=== PATIENT | female | born 1940 | race Caucasian/White ===

== ENCOUNTER → 2016-09-23 | Outpatient (CLI) | payer OTHER, MEDICARE ==
[~2016-09-23] MED LIST: AMLO-110 PO; DYZ PO; ENAL10TA88; ENAL10TA88 PO; LOVA40TA4 PO
[2016-09-23 12:36] LABS: ALT/SGPT 19 U/L (12-78); AST/SGOT 21 U/L (15-37); BLOOD UREA NITROGEN 23 mg/dl (7-18); BUN/CREATININE RATIO 22.8 (10-20); CALCIUM 9.2 mg/dl (8.5-10.1); CARBON DIOXIDE 29 mmol/L (21-32); CHLORIDE 104 mmol/L (98-107); GLUCOSE 89 mg/dl (70-99); POTASSIUM 4.3 mmol/L (3.5-5.1); SODIUM 139 mmol/L (136-145)
[2016-09-23 12:48] LABS: ALKALINE PHOSPHATASE 97 U/L (45-117)
== END | disposition home or self-care (01) ==
LOC: C.LAB1850 11:08
PROVIDERS: ATTEND Internal Medicine
DX: E78.5 Hyperlipidemia, unspecified (principal)

== ENCOUNTER → 2017-03-17 | Outpatient (CLI) | payer OTHER, MEDICARE ==
[2017-03-17 10:50] LABS: BASO % 0.2 %; BASO ABS # 0.02 K/uL (0-0.2); EOS % 1.3 %; EOS ABS # 0.12 K/uL (0-0.5); HEMOGLOBIN 13.2 g/dL (12.0-16.0); IG# 0.02 K/uL (0.00-0.02); LYMPH ABS # 1.59 K/uL (1.2-3.4); MEAN CELL VOLUME 98.5 fL (80-100); MEAN CORPUSCULAR HEMOGLOBIN 32.5 pg (25-34); MEAN PLATELET VOLUME 11.6 fL (7.4-10.4); MONO % 4.5 %; MONO ABS # 0.42 K/uL (0.11-0.59); NEUT % 76.8 %; NEUT ABS # 7.18 K/uL (1.4-6.5); PLATELET COUNT 185 K/uL (130-400); RED CELL DISTRIBUTION WIDTH CV 12.8 % (11.5-14.5); RED CELL DISTRIBUTION WIDTH SD 46.4 fL (36.4-46.3); WHITE BLOOD COUNT 9.35 K/uL (4.8-10.8)
[2017-03-17 11:15] LABS: ALBUMIN 3.3 gm/dl (3.4-5.0); ALT/SGPT 15 U/L (12-78); AST/SGOT 15 U/L (15-37); BLOOD UREA NITROGEN 28 mg/dl (7-18); CARBON DIOXIDE 26 mmol/L (21-32); CREATININE 1.03 mg/dl (0.60-1.20); GLUCOSE 90 mg/dl (70-99); POTASSIUM 4.3 mmol/L (3.5-5.1); SODIUM 137 mmol/L (136-145)
[2017-03-17 11:17] LABS: ALKALINE PHOSPHATASE 95 U/L (45-117); CHOLESTEROL 157 mg/dl (0-200); LDL CHOLESTEROL CALCULATED 54 mg/dl; TOTAL PROTEIN 7.4 gm/dl (6.4-8.2)
== END | disposition home or self-care (01) ==
LOC: C.LAB1850 09:59
PROVIDERS: ATTEND Internal Medicine
DX: E78.5 Hyperlipidemia, unspecified (principal); I10 Essential (primary) hypertension

== ENCOUNTER 2019-08-18 07:51 | Inpatient (IN) ==
--- NOTE | 2019-08-10 16:11 | PAT Medication Instructions ---
Medication Instructions Date of Service August 10, 2019 Home Medications Medication Instructions Recorded lovastatin 20 mg tablet 20 mg PO QPM #90 tab 04/29/19 Wheeled Walker #1 ea 08/04/19 lovastatin 20 mg tablet 20 mg PO QPM enalapril maleate 30 mg PO BID meloxicam 7.5 mg PO QAM triamterene-hydrochlorothiazid 1 tab PO QAM ASK your surgeon for instructions meloxicam 7.5 mg PO QAM DO NOT take the morning of surgery enalapril maleate 30 mg PO BID triamterene-hydrochlorothiazid 1 tab PO QAM Take evening before surgery lovastatin 20 mg tablet 20 mg PO QPM enalapril maleate 30 mg PO BID NOTHING TO EAT OR DRINK ATER MIDNIGHT Other Notes If you have any questions please call us at [phone] or [phone] or [phone] or [phone]
--- NOTE | 2019-08-11 15:30 | Anesthesiology Consultation ---
Date of Service August 11, 2019 Assessment & Plan (1) Encounter for pre-operative examination: COVID Status: As of 08/09 nurse assessment, patient denies travel to endemic area, known exposure/sick contacts, symptoms, or testing for coronavirus. She will be tested for covid on 08/11 at surgeon's office. Chart Review Chart Review: Acceptable Risk for Surgery (pending note to PCP re: ROZ, confirmed EKG) and Patient NOT seen in Pre Admission Testing Teaching & Discussion Instructed NPO after midnight before surgery, except medications with 15 cc of water. Medication instructions provided according to the PAT guidelines. History Surgery Operation Date: 08/18/19 12:45 Proposed Procedures p Right Total Knee Replacement - Monroe Hernandez MD Height/Weight Height: 5 ft 10 in Weight: 97 kg Allergies Allergy/AdvReac Type Severity Reaction Status Date / Time No Known Allergies Allergy Mild Verified 08/09/19 15:03 Medications Home Medications Medication Instructions Recorded Confirmed Last Taken lovastatin 20 mg tablet 20 mg PO QPM #90 tab 04/29/19 08/09/19 Unknown Wheeled Walker #1 ea 08/04/19 08/09/19 Unknown enalapril maleate 30 mg PO BID 08/09/19 08/09/19 Unknown meloxicam 7.5 mg PO QAM 08/09/19 08/09/19 Unknown triamterene-hydrochlorothiazid 1 tab PO QAM 08/09/19 08/09/19 Unknown Past Medical History Medical History Acquired lymphedema RLE, wears compression stocking 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 LAST SURGERY 2010> FOLLOWS DR. OWEN CHAVEZ IN [place] Chronic low back pain (Acute) Cold intolerance (Acute) Diverticulosis of colon (Acute) Dyslipidemia (Acute) Generalized osteoarthritis of multiple sites (Acute) History of nicotine dependence (Resolved) Hypertension (Acute) Menopause (Acute) Osteoarthritis Stasis edema of right lower extremity (Acute) CHRONIC Exercise / Class Metabolic Activity III < 4 Walking/Shop/Light housework (Gets worn out quickly now 2/2 knee pain, using cane for ambulation, so some SOB with exertion, no chest pain. Does water aeorbics for exercise.) Past Family History Family History Father Hypertension Diabetes Hyperlipidemia Mother Hypertension Past Surgical History Surgical History H/O parotidectomy History of colonoscopy Hx of bilateral cataract extraction Hx of surgical procedure X4 TO [place] [facility] FOR CANCER S/P cholecystectomy Past Anesthesia History No Hx of Anesthesia Complications and No Family Hx of Anesthesia Complications History of PONV No Hx of PONV and No Hx of Motion Sickness Social History Smoking Status: Former smoker Do You Dip or Chew Tobacco: No Smoking End Date: 2016 Hx Alcohol Use: Yes Alcohol type: hard liquor alcohol intake frequency: a few times a month Hx Substance Use: No substance use type: does not use Review of Systems Pt denies any recent chest pain, shortness of breath, palpitations, cough, fever or URI. Physical Exam Vital Signs BP: 141/73 P: 87bpm SPO2: 97% RA T: 98.9 F R: 16 ENMT Mouth: + dentures and + edentulous (except posts in front lower to hold denture) Thyromental Distance: > or= 3.5 Finger Breadths (3.5) Neck normal visual inspection; neck extension not limited Respiratory normal respiratory effort Auscultation: lungs clear to auscultation bilaterally Cardiovascular Rate/Rhythm: regular rate; + abnormal rhythm (irreg irreg) Heart Sounds: no murmur Extremities: no edema (wearing RLE compression sock) Occasional PVCs and PACs on EKG. Testing Laboratory Results 08/11/19 15:54 08/11/19 15:54 PT 10.6 Seconds (9.0-12.0) 08/11/19 15:54 INR 1.0 (0.9-1.1) 08/11/19 15:54 APTT 24.2 Seconds (21.0-31.0) 08/11/19 15:54 Blood Type O Positive 08/11/19 15:54 Antibody Screen NEGATIVE 08/11/19 15:54 Electrocardiogram Date: 08/11/19 Sinus rhythm at 95 bpm with first-degree AV block with occasional PVCs and PACs. RSR or QR pattern in V1 suggests right ventricular conduction delay. Nonspecific ST abnormality. Prolonged QT. Compared with EKG of 05/01/2012, ABCs and PACs are now present, MA interval has increased, RSR pattern in V1 is now present. Chest X-Ray Date: 08/11/19 Findings: + NAD
[2019-08-11 16:20] LABS: Basophils # (auto) 0.03 K/uL (0-0.2); Basophils % (auto) 0.3 %; Eosinophils # (auto) 0.13 K/uL (0-0.5); Eosinophils % (auto) 1.3 %; Hematocrit (blood only) 39.1 % (37-47); Hemoglobin 12.7 g/dL (12.0-16.0); Immature Granulocytes # (auto) 0.03 K/uL (0.00-0.02); Immature Granulocytes % (auto) 0.3 %; Lymphocytes # (auto) 1.83 K/uL (1.2-3.4); Lymphocytes % (auto) 18.8 %; Mean Corpuscular Hemoglobin 31.8 pg (25-34); Mean Corpuscular Hgb Conc 32.5 g/dL (32-36); Mean Platelet Volume 11.6 fL (7.4-10.4); Monocytes # (auto) 0.66 K/uL (0.11-0.59); Monocytes % (auto) 6.8 %; Neutrophils # (auto) 7.06 K/uL (1.4-6.5); Neutrophils % (auto) 72.5 %; Platelet Count 200 K/uL (130-400); RDW Coefficient of Variation 13.2 % (11.5-14.5); RDW Standard Deviation 47.4 fL (36.4-46.3); Red Blood Count 3.99 M/uL (4.2-5.4); White Blood Count 9.74 K/uL (4.8-10.8)
[2019-08-11 16:27] LABS: BUN Creatinine Ratio 24.6 (10-20); Blood Urea Nitrogen 40 mg/dl (7-18); C Reactive Protein < 0.29 mg/dl (0-0.29); Calcium 9.1 mg/dl (8.5-10.1); Carbon Dioxide 26 mmol/L (21-32); Chloride 108 mmol/L (98-107); Creatinine Clr Calc Pharmacy 35.7 ml/min; Est GFR (African American) 34.9; Est GFR (Non-African American) 30.1; Glucose 93 mg/dl (70-99); Potassium 4.6 mmol/L (3.5-5.1); Sodium 138 mmol/L (136-145)
[2019-08-11 16:34] LABS: Partial Thromboplastin Ratio 0.9; Partial Thromboplastin Time 24.2 Seconds (21.0-31.0); Prothrombin Time 10.6 Seconds (9.0-12.0)
--- NOTE | 2019-08-11 16:40 | XRay Report ---
XR chest Pre-admission PA/Lat CLINICAL HISTORY: PAT preoperative COMPARISON STUDY: 05/01/2012 FINDINGS: Tortuosity thoracic aorta. Diaphragms are smooth. Slight basilar interstitial prominence fe lt to be secondary to overlapping soft tissue. IMPRESSION: No acute process. ACT 112: Negative or not required by law. The above report was generated using voice recognition software. It may contain grammatical, syntax or spelling errors. Electronically signed by: Fili Patton M.D. 08/11/2019 4:39 PM
--- NOTE | 2019-08-12 14:49 | Electrocardiogram Report ---
Test Reason : Blood Pressure : / mmHG Vent. Rate : 095 BPM Atrial Rate : 095 BPM P-R Int : 234 ms QRS Dur : 090 ms QT Int : 394 ms P-R-T Axes : 075 071 051 degrees QTc Int : 495 ms Sinus rhythm with 1st degree A-V block with occasional Premature ventricular complexes and Premature atrial complexes with runs of PAT RSR' or QR pattern in V1 suggests right ventricular conduction delay Nonspecific ST abnormality Prolonged QT Abnormal ECG When compared with ECG of 01-MAY-2012 12:25, Premature ventricular complexes are now Present Premature atrial complexes are now Present ND interval has increased RSR' pattern in V1 is now Present Confirmed by Liam Romo ([id number]) on 08/12/2019 2:48:42 PM Referred By: Monroe Hernandez Confirmed By:Liam Romo
[~2019-08-18 07:51] MED LIST changes: +ACETAMINOPHEN 500 MG TAB PO SCH; -AMLO-110 PO; +BUPIVACAINE 0.5 % 5 MG/1 ML PF 10ML VIAL ONE; +BUPIVACAINE LIPOSOME/PF 266 MG, BUPIVACAINE/EPINEPHRINE 50 ML, SODIUM CHLORIDE 0.9% 30 ... INFIL SCH; +CEFAZOLIN 2000MG 2,000 MG/15 ML SYR IV SCH; -DYZ PO; -ENAL10TA88; -ENAL10TA88 PO; +FAMOTIDINE 20 MG TAB PO SCH; +GABAPENTIN 300 MG CAP PO SCH; -LOVA40TA4 PO; +METOCLOPRAMIDE HCL 10 MG TABLET PO SCH; +MIDAZOLAM HCL 1 MG/ML 2ML VIAL ONE; +TRANEXAMIC ACID / 0.7% NACL 1,000 MG/100 ML BAG IV SCH; +fentaNYL citrate 100 MCG/2 ML VIAL ONE
--- NOTE | 2019-08-18 08:57 | History & Physical Bridge Note ---
Date of Service August 18, 2019 History & Physical Bridge Note I have examined the patient, reviewed the History & Physical and in the interval since the performance of the History & Physical I have noted the following changes of clinical significance: no changes noted
[2019-08-18] MEDS ORDERED: FAMOTIDINE 20 MG TAB ONE (09:08)
[2019-08-18] MEDS ORDERED: GABAPENTIN 300 MG CAP ONE (09:08)
[2019-08-18] MEDS ORDERED: METOCLOPRAMIDE HCL 10 MG TABLET ONE (09:08)
[2019-08-18] MEDS ORDERED: ACETAMINOPHEN 500 MG TAB ONE (09:08)
[2019-08-18] MEDS ORDERED: TRANEXAMIC ACID / 0.7% NACL 1000MG/100ML BAG IV ONE (09:10)
[2019-08-18] MEDS ORDERED: CEFAZOLIN 2,000 MG/15 ML IV PUSH IV ONE (09:11)
[2019-08-18] MEDS ORDERED: LACTATED RINGER'S 1,000 ML IV SCH (09:15)
[2019-08-18] MEDS ORDERED: BUPIVACAINE LIPOSOME 1.3% 266 MG/20 ML VIAL ONE (10:12)
[2019-08-18] MEDS ORDERED: BUPIVACAINE/EPINEPHRINE 0.25% 1:200,000 30 ML VIAL ONE (10:12)
[2019-08-18] MEDS ORDERED: BACITRACIN INJ 50,000 UNIT VIAL ONE (10:12)
[2019-08-18] MEDS ORDERED: SODIUM CHLORIDE 0.9% PF 50 ML VIAL ONE (10:12)
[2019-08-18 11:01] LABS: BUN Creatinine Ratio 20.3 (10-20); Calcium 9.4 mg/dl (8.5-10.1); Creatinine Clr Calc Pharmacy 31.5 ml/min; Est GFR (African American) 30.5; Est GFR (Non-African American) 26.3; Potassium 3.9 mmol/L (3.5-5.1)
[2019-08-18] MEDS ORDERED: DEXAMETHASONE SOD INJ 4 MG/ML VIAL ONE (11:12)
[2019-08-18] MEDS ORDERED: PROPOFOL IV EMULSION 10 MG/ML 20 ML VIAL IV ONE (11:12)
[2019-08-18] MEDS ORDERED: ONDANSETRON INJ 2 MG/ML 2 ML VIAL ONE (11:12)
[2019-08-18] MEDS ORDERED: fentaNYL citrate 100 MCG/2 ML VIAL ONE ×2 (11:28→13:05)
[2019-08-18] MEDS ORDERED: VANCOMYCIN HCL 1000MG/20ML VIAL ONE (11:29)
[2019-08-18] MEDS ORDERED: HYDROmorphone INJ 2 MG/ML SYR/VIAL ONE (11:37)
--- NOTE | 2019-08-18 12:51 | Post Operative Brief Note ---
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 Post-Op Diagnosis: RIGHT KNEE DEGENERATIVE JOINT DISEASE W/KNEE PAIN I identified the patient and participated in the time-out.: Yes Procedure Operation Date: 08/18/19 10:00 Actual Procedures p Right Total Knee Replacement(Right) - Monroe Hernandez MD Surgeon Monroe Hernandez MD Sausage Tier Crystal, [facility] Estimated Blood Loss 50 Findings Consistent with Post-Op Diagnosis Fluids 800 cc Specimens Specimen Description: Permanent Specimen: A) Right Knee Bone and Tissue Drains Guajardo Catheter Anesthesia Type Spinal MAC Complications none Disposition Accompanied Patient To Recovery: No Disposition: Recovery Room
[2019-08-18] MEDS ORDERED: ATROPINE SULFATE 0.1 MG/ML 10ML SYR IV PRN (13:02)
[2019-08-18] MEDS ORDERED: ONDANSETRON INJ 2 MG/ML 2 ML VIAL IV PRN ×2 (13:02→14:34)
[2019-08-18] MEDS ORDERED: ePHEDrine sulfate 50 MG/ML AMP IV PRN (13:02)
[2019-08-18] MEDS: fentaNYL citrate 100 MCG/2 ML VIAL IV PRN ×4 (13:07→13:25)
--- NOTE | 2019-08-18 13:16 | XRay Report ---
XR knee RT 1 or 2V routine HISTORY: 79 years-old Female Surgical Post Op right knee total joint arthroplasty COMPARISON: Right knee radiographs 11/24/2018 TECHNIQUE: 2 views of the right knee FINDINGS: Total joint arthroplasty and patella resurfacing. Anterior midline skin ree are noted along with expected postsurgical soft tissue swelling and deep tissue air with surgical drainage catheter. Arter ial calcifications. IMPRESSION: Right knee total joint arthroplasty with expected postoperative findings. ACT 112: Negative or not required by law. The above report was generated using voice recognition software. It may contain grammatical, syntax o r spelling errors. Electronically signed by: Jong Forrest M.D. 08/18/2019 1:15 PM
[2019-08-18] MEDS ORDERED: HYDROmorphone INJ 1 MG/ML SYRINGE ONE (13:31)
[2019-08-18] MEDS: HYDROmorphone INJ 1 MG/ML SYRINGE IV PRN ×4 (13:34→13:50)
--- NOTE | 2019-08-18 13:51 | Operative Report ---
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 She had she had extensive grade 4 [id number] disease of the lateral and patellofemoral compartment and fairly extensive disease in the medial compartment as well. She had a valgus deformity to her knee with a flexion contracture of about 10 to 15 degrees. Moderate-sized joint effusion. Fluids 800 cc. Specimens Right knee sent for pathology. Drains None. Anesthesia Type General Regional Complications none Disposition Disposition: Recovery Room Indications Patient is a 79-year-old female is had a fairly long history of right knee pain discomfort is gotten suddenly worse over the past year. He has been through extensive conservative treatment and despite this her disease and symptoms progressed. X-rays show progressive knee arthritis. She elected proceed with surgical treatment. Patient does have a history of lymphedema in this leg and she knew that as a result she was at increased risk for complications, most specifically infection and thrombosis. Description of Procedure Operative implants consisted of: 1. Biomet Vanguard size 72.5 right posterior by femoral component. 2. Biomet size 71 tibial tray. 3. 10 mm posterior box polyethylene insert. 4. 31 x 8 all poly-patella. Patient was taken to the operating room identified and placed on the operating table supine position. All contact areas were appropriately padded. IV antibiotics were tried by anesthesia team. And abductor canal block had provided in the holding area. They attempted a spinal anesthetic but were unsuccessful. Therefore a general anesthetic was implemented by the anesthesia team. A Guajardo catheter was placed in sterile fashion. Right thigh tach was then placed in the right lower extremity was then prepped and draped in usual sterile fashion. The right leg was elevated exsanguinated with use of an Esmarch interspace at 300 mmHg. An anterior approach to the right knee was then performed through a longitudinal incision centered over the patella. Sharp dissection Through subcutaneous tissue down to the extensor mechanism. A medial parapatellar arthrotomy incision was made. Some subperiosteal dissection was carried out medially. The fat pad was resected from each patella tendon. Lateral patellofemoral ligament was released. The patella was subluxated laterally. The knee was flexed. The osteophytes were taken off distal femur. The ACL PCL were then released from distal femur and the tibia subluxated anteriorly. The external tibial alignment jig was placed on the anterior surface of the tibia and adjusted 12 mm medially. Proximal tibial cut was made to move about 4 to 5 mm from the medial side. The tibia was sized to a size 71. Attention drawn the femur. The distal femur was entered with a sharp drill bit intramedullary canal was suction. A right 5 degree valgus cutting guide was placed. Distal femoral cutting block was pinned in place but distal femoral cut was made to take an additional 3 mm of bone off distal femur. The femur was then sized to a size 72.5. The AP cutting block was pinned parallel to the epicondylar axis which was 5 degrees of external rotation. The anterior cut, anterior chamfer, posterior cut, posterior chamfer cuts were made. Box cutting guide was placed in just slight lateral box cut was made. The knee was brought out into full extension and I did release some the IT band and posterior lateral capsule to equalize the extension space. Great care was taken throughout the procedure protect the peroneal nerve at all times. I then flexed the knee and release the lobe of the popliteus as well to equalize the flexion space. The remnants of the medial lateral menisci were excised. The osteophytes were taken off the posterior aspect of the femur. Trial femoral component was placed. The tibial tray was pinned in maximum external rotation drill and stem punch were used to create defect in proximal tip of the tibial tray. Knee was then trialed and 10 mm insert fit most appropriately. Attention drawn the patella. The patella was cleaned of all soft tissues. Patella thickness measured 20 mm in thickness was cut down to 13. It was sized to a size 31 patella. The locals were drilled for 31 patella. The lateral osteophyte was removed. Patella button was placed. Knee was taken through range of motion patella tracked nicely with no thumbs test. Attention drawn to placing the permanent components. All trial components were removed. Bone plug was placed in the distal femur allison it blood loss. A double batch Palacos G cement was mixed. I did add an additional gram of vancomycin due to her history of lymphedema and swelling in this leg and concern for infection. A Biomet size 72.5 right posterior by femoral component, size 71 tibial tray, 10 mm posterior box polyethylene insert, and a 31 x 8 all poly-patella were then cemented in place. Knees brought out into full extension until cement hardened. Final cement check was then performed. Pericapsular tissues were injected with a total of 100 cc of combination of 20 cc of Exparel, 30 cc normal saline, 50 cc of quarter percent Marcaine with epinephrine. Patient did receive 1 g of tranexamic acid per the tourniquet was then let down for final tourniquet time of 64 minutes. Hemostasis assured use electrocautery. The wounds once again irrigated. Extensor mechanism then closed with combination 1 PDS suture #1 Vicryl suture in [id number] fashion. Extensor mechanism checked about to be intact and subcutaneous tissue then closed with 2 Dexon suture in a buried knot fashion skin was closed skin ree. Leg was then cleaned dried and sterile dressed composed Xeroform, 4 x 4's, sterile cast padding, Diogenes bandage were applied. Patient then transferred to the recovery room in stable condition. Patient tolerated procedure well no complications. I attest to the content of the Intraoperative Record and any orders documented therein. Any exceptions are noted below.
--- NOTE | 2019-08-18 13:54 | Anesthesiology Progress Note ---
Date of Service August 18, 2019 Anesthesia Post Procedure Vital Signs Vital Signs: Temp Pulse Pulse Resp BP Pulse Ox 08/18/19 13:45 76 26 H 132/66 100 08/18/19 13:35 87 19 132/69 100 08/18/19 13:25 82 24 138/55 L 96 08/18/19 13:15 81 17 138/65 100 08/18/19 13:05 80 17 132/49 L 100 08/18/19 12:57 97.7 F 90 14 128/60 100 08/18/19 08:33 98.2 F 87 16 146/93 H 97 Pain Intensity Right Knee: Pain Intensity: 7 Left Knee: Pain Intensity: 7 Transfer of Care Handoff Completed per policy Notes Mental Status: alert / awake / arousable and participated in evaluation Patient Amnestic to Procedure: Yes Nausea / Vomiting: adequately controlled Pain: adequately controlled Airway Patency, RR, SpO2: stable & adequate BP & HR: stable & adequate Hydration State: stable & adequate Anesthetic Complications: no major complications apparent and Pt Satisfied with anesthetic care
[2019-08-18] MEDS ORDERED: NO NSAIDS SCH (14:34)
[2019-08-18] MEDS ORDERED: METOCLOPRAMIDE HCL INJ 5 MG/ML 2 ML VIAL IV PRN (14:34)
[2019-08-18] MEDS ORDERED: HYDROmorphone INJ 0.5 MG/0.5 ML SYR IV PRN (14:34)
[2019-08-18] MEDS ORDERED: NALOXONE HCL 0.4 MG/1 ML VIAL/CARP IV PRN (14:34)
[2019-08-18] MEDS ORDERED: ALUMINUM/MAGNESIUM SUSP 30 ML UDC PO PRN (14:34)
[2019-08-18] MEDS ORDERED: MAGNESIUM HYDROXIDE SUSP 30 ML UDC PO PRN (14:34)
[2019-08-18] MEDS ORDERED: bisacodyL 10 MG SUPP PR PRN (14:34)
[2019-08-18] MEDS: SODIUM CHLORIDE 0.9% 1000ML 1,000 ML IV SCH (14:58)
[2019-08-18] MEDS: ACETAMINOPHEN 500 MG TAB PO SCH (16:49)
[2019-08-18] MEDS: FERROUS GLUCONATE 324 MG TAB PO SCH (18:00)
[2019-08-18] MEDS: ASCORBIC ACID 500 MG TAB PO SCH (18:00)
[2019-08-18] MEDS: CEFAZOLIN 2000MG 2,000 MG/15 ML SYR IV SCH (18:05)
[2019-08-18] MEDS ORDERED: TRANEXAMIC ACID / 0.7% NACL 1,000 MG/100 ML BAG IV SCH (19:00)
[2019-08-18] MEDS: ENALAPRIL MALEATE 10 MG TAB PO SCH (21:40)
[2019-08-18] MEDS: ASPIRIN 81 MG ECTAB PO SCH (21:40)
[2019-08-18] MEDS: DOCUSATE SODIUM 100 MG CAP PO SCH (21:40)
[2019-08-18] MEDS: SENNA 8.6 MG TAB PO SCH (21:40)
[2019-08-18] MEDS: LOVASTATIN 20 MG TAB PO SCH (21:40)
[2019-08-19] MEDS: SODIUM CHLORIDE 0.9% 1000ML 1,000 ML IV SCH (00:16)
[2019-08-19] MEDS: ACETAMINOPHEN 500 MG TAB PO SCH ×4 (00:16→23:47)
[2019-08-19] MEDS: CEFAZOLIN 2000MG 2,000 MG/15 ML SYR IV SCH (03:31)
[2019-08-19 06:05] LABS: Hematocrit (blood only) 34.4 % (37-47); Mean Corpuscular Hemoglobin 31.1 pg (25-34); Mean Corpuscular Volume 97.2 fL (80-100); Mean Platelet Volume 11.2 fL (7.4-10.4); Platelet Count 151 K/uL (130-400); RDW Coefficient of Variation 12.7 % (11.5-14.5); RDW Standard Deviation 45.2 fL (36.4-46.3); Red Blood Count 3.54 M/uL (4.2-5.4); White Blood Count 9.28 K/uL (4.8-10.8)
[2019-08-19] MEDS: TRAMADOL HCL 50 MG TABLET PO PRN ×4 (06:08→22:55)
[2019-08-19 06:33] LABS: BUN Creatinine Ratio 21.3 (10-20); Calcium 8.3 mg/dl (8.5-10.1); Creatinine Clr Calc Pharmacy 44.4 ml/min; Est GFR (Non-African American) 39.7; Potassium 3.7 mmol/L (3.5-5.1)
--- NOTE | 2019-08-19 07:46 | Progress Notes ---
DATE: 08/19/2019 SUBJECTIVE: A 79-year-old white female postop day 1 from right knee replacement. She is doing pretty well. She says her quad muscle is pretty sore. No chest pain or shortness of breath. Not feeling dizzy or lightheaded. Had a pretty good night. OBJECTIVE: VITAL SIGNS: Temperature 37.1. Vital signs stable. GENERAL: Shows a pleasant elderly female. She is lying in bed, looks reasonably comfortable. She is awake, alert and oriented. LUNGS: Clear to auscultation. HEART: Has a regular rate and rhythm. ABDOMEN: Soft, nontender, nondistended. EXTREMITIES: Grossly neurovascularly intact except as follows: Examination of the right lower extremity reveals the leg to be well aligned. Dressing is clean, dry and intact. She can dorsiflex and plantarflex her foot appropriately. She is neurologically intact. LABORATORY DATA: Hemoglobin 11.0. Hematocrit 34.4. Electrolytes are stable. She has got some underlying renal dysfunction, but creatinine is actually better than it has in the past at 1.28. ASSESSMENT: A 79-year-old white female postoperative day 1 from right knee replacement, doing reasonably well. Pain is controlled. She is neurologically intact. Her laboratories are stable. PLAN: 1. DVT prophylaxis including thigh-high TEDs, SCDs, and aspirin twice a day. 2. PT/OT. Weight bear as tolerated. Right total knee protocol. 3. Pain control, doing pretty well with current pain regimen. We are going to need to hold all NSAIDs due to her renal dysfunction. 4. Disposition: She is hoping to be discharged to home with some home health and some family coming from the outside to assist her when she is medically stable.
[2019-08-19] MEDS: ENALAPRIL MALEATE 10 MG TAB PO SCH ×2 (08:07→20:53)
[2019-08-19] MEDS: DOCUSATE SODIUM 100 MG CAP PO SCH ×2 (08:08→20:51)
[2019-08-19] MEDS: MULTIVITAMIN TAB PO SCH (08:08)
[2019-08-19] MEDS: ASCORBIC ACID 500 MG TAB PO SCH ×2 (08:08→17:45)
[2019-08-19] MEDS: FERROUS GLUCONATE 324 MG TAB PO SCH ×2 (08:08→17:45)
[2019-08-19] MEDS: ASPIRIN 81 MG ECTAB PO SCH ×2 (08:08→20:52)
[2019-08-19] MEDS: TRIAMTERENE/HCTZ 37.5/25MG TAB PO SCH (08:08)
--- NOTE | 2019-08-19 08:19 | Anesthesiology Progress Note ---
Date of Service August 19, 2019 Anesthesia Post Procedure Vital Signs Vital Signs: Temp Pulse Pulse Pulse Resp BP BP 08/19/19 07:29 36.7 C 86 18 145/81 H 08/19/19 03:33 37.1 C 78 14 129/72 08/18/19 23:41 36.6 C 92 H 14 121/64 08/18/19 17:21 36.2 C L 66 18 180/83 H 08/18/19 17:12 36.2 C L 08/18/19 16:55 36.3 C L 08/18/19 16:31 34.6 C L 08/18/19 16:26 34.6 C L 71 17 147/83 H 08/18/19 16:10 34.7 C L 08/18/19 15:24 34.7 C L 76 17 144/81 H 08/18/19 14:50 36.4 C L 76 16 149/81 H 08/18/19 14:20 36.4 C L 82 16 146/86 H 08/18/19 14:05 36.3 C L 78 12 146/74 H 08/18/19 13:55 36.3 C L 81 10 L 139/61 08/18/19 13:45 76 26 H 132/66 08/18/19 13:35 87 19 132/69 08/18/19 13:25 82 24 138/55 L 08/18/19 13:15 81 17 138/65 08/18/19 13:05 80 17 132/49 L 08/18/19 12:57 36.5 C 90 14 128/60 08/18/19 08:33 36.8 C 87 16 146/93 H Pulse Ox 08/19/19 07:29 98 08/19/19 03:33 98 08/18/19 23:41 98 08/18/19 17:21 99 08/18/19 17:12 08/18/19 16:55 08/18/19 16:31 08/18/19 16:26 100 08/18/19 16:10 08/18/19 15:24 100 08/18/19 14:50 100 08/18/19 14:20 98 08/18/19 14:05 99 08/18/19 13:55 99 08/18/19 13:45 100 08/18/19 13:35 100 08/18/19 13:25 96 08/18/19 13:15 100 08/18/19 13:05 100 08/18/19 12:57 08/18/19 08:33 97 Pain Intensity Right Knee: Pain Intensity: 4 Left Knee: Pain Intensity: 2 Notes Mental Status: alert / awake / arousable and participated in evaluation Nausea / Vomiting: adequately controlled Pain: adequately controlled Airway Patency, RR, SpO2: stable & adequate BP & HR: stable & adequate Hydration State: stable & adequate Neuraxial Anesthesia: sensory block resolved Anesthetic Complications: Pt Satisfied with anesthetic care
[2019-08-19] MEDS: SENNA 8.6 MG TAB PO SCH (20:52)
[2019-08-19] MEDS: LOVASTATIN 20 MG TAB PO SCH (20:52)
[2019-08-20 06:16] LABS: Hematocrit (blood only) 34.3 % (37-47); Hemoglobin 11.2 g/dL (12.0-16.0); Mean Corpuscular Hemoglobin 31.5 pg (25-34); Mean Corpuscular Hgb Conc 32.7 g/dL (32-36); Mean Corpuscular Volume 96.6 fL (80-100); Mean Platelet Volume 11.9 fL (7.4-10.4); Platelet Count 168 K/uL (130-400); RDW Coefficient of Variation 12.7 % (11.5-14.5); RDW Standard Deviation 44.9 fL (36.4-46.3); Red Blood Count 3.55 M/uL (4.2-5.4); White Blood Count 12.36 K/uL (4.8-10.8)
[2019-08-20 06:54] LABS: BUN Creatinine Ratio 18.1 (10-20); Creatinine Clr Calc Pharmacy 44.7 ml/min; Est GFR (African American) 46.5; Est GFR (Non-African American) 40.1; Potassium 3.6 mmol/L (3.5-5.1)
[2019-08-20] MEDS: ACETAMINOPHEN 500 MG TAB PO SCH (07:36)
[2019-08-20] MEDS: TRIAMTERENE/HCTZ 37.5/25MG TAB PO SCH (08:44)
--- NOTE | 2019-08-20 08:44 | Progress Notes ---
DATE: 08/20/2019 SUBJECTIVE: A 79-year-old white female postop day 2 from right knee replacement. She is doing pretty well. Pain is a little bit better today. Therapy went okay. No chest pain or shortness of breath. Not feeling dizzy or lightheaded. OBJECTIVE: VITAL SIGNS: Temperature 36.9. Vital signs stable. GENERAL: Shows a pleasant elderly female. She is sitting up at her bedside chair, looks quite comfortable. EXTREMITIES: Examination of the right leg reveals the dressing to be clean, dry and intact. Minimal drainage. Mild swelling. She can dorsiflex and plantarflex her foot appropriately. She is neurologically intact. LABORATORY DATA: Hemoglobin 11.2. Hematocrit 34.3. Electrolytes are stable. Creatinine is actually improved from preoperatively. ASSESSMENT: A 79-year-old white female postop day 2 from right knee replacement, doing pretty well. Pain is controlled. She is neurologically intact. Labs are stable. PLAN: 1. DVT prophylaxis including thigh-high TEDs, SCDs, and aspirin twice a day. 2. PT/OT. Weight bear as tolerated. Right total knee protocol. 3. Pain control, doing well with current pain regimen. We need to hold her NSAIDs due to her renal dysfunction. 4. Disposition: Plan to discharge to home with some home health later today.
[2019-08-20] MEDS: ASCORBIC ACID 500 MG TAB PO SCH (08:45)
[2019-08-20] MEDS: MULTIVITAMIN TAB PO SCH (08:45)
[2019-08-20] MEDS: ENALAPRIL MALEATE 10 MG TAB PO SCH (08:45)
[2019-08-20] MEDS: FERROUS GLUCONATE 324 MG TAB PO SCH (08:45)
[2019-08-20] MEDS: DOCUSATE SODIUM 100 MG CAP PO SCH (08:46)
[2019-08-20] MEDS: ASPIRIN 81 MG ECTAB PO SCH (08:46)
[2019-08-20] MEDS: TRAMADOL HCL 50 MG TABLET PO PRN (08:49)
--- NOTE | 2019-08-23 16:17 | Discharge Summary ---
Date of Service August 23, 2019 Admission HPI Per Admitting Provider Documented in the H&P Admission Exam (Per Admitting) Constitutional Documented in the H&P Discharge Data Consultations 08/18/19 14:34 Consult Case Management - Discharge Planning Routine Procedures Performed Operation Date: 08/18/19 10:00 Actual Procedures p Right Total Knee Replacement(Right) - Monroe Hernandez MD Hospital Course (1) Status post total right knee replacement: 79-year-old female admitted on 08/18/2019 underwent total knee arthroplasty. She tolerated procedure well and there were no complications. She was transferred to the PACU postoperatively and later to the orthopedic floor for further care. She was given RICO stockings, SCDs, and aspirin for DVT prophylaxis. She was given Ancef for antibiotic prophylaxis. Her hemoglobin, hematocrit, and vital signs monitored during hospital stay remained stable. She did not require blood transfusions. There were no complications. On postoperative day 2 she was tolerating a regular diet, pain was controlled with oral pain medicine, she was participating in physical therapy. She is discharged home on postop day 2 and set up with home health services. She was given printed discharge instructions as well as new prescriptions for extra strength Tylenol, aspirin, iron supplement, tramadol. Continue physical thera py. She is weightbearing as tolerated. Continue RICO stockings. Follow-up approximately 2 weeks postop or sooner if any problems or concerns. Coding Level of Care Code None Diagnoses Status post total right knee replacement Z96.651
== END 2019-08-20 11:38 | disposition home health service (06) | DRG 470 ==
LOC: ASU 07:51 → 3E 07:51

== ENCOUNTER 2021-01-02 08:08 | Inpatient (IN) ==
[2021-01-02] MEDS ORDERED: SODIUM CHLORIDE 0.9% 1000ML 500 ML IV ONE ×2 (08:49→13:29)
[2021-01-02] MEDS ORDERED: SODIUM CHLORIDE 0.9% 1000ML 1,000 ML IV STA (08:49)
--- NOTE | 2021-01-02 08:49 | Emergency Department Note ---
Impression & Plan Epidural abscess ED Provider Note INFORMANT: Patient ED PROVIDER(S): Eduard Yanes MD CHIEF COMPLAINT: Back pain PLAN: Disposition: Admitted Condition: Guarded Outpatient prescription management: none Referral: None MEDICAL DECISION MAKING: Patient presented due to worsening back pain. She is not functioning well at home. An IV was established. Blood work was obtained. Patient went for CT imaging. She was also complaining of pain in her wrists bilaterally. X-ray imaging was performed and did not reveal any acute findings. Arthritic changes were noted. Due to the fall a head CT was performed and this was negative. Lumbar spine CT was performed and raise concerns for possible epidural gas. I discussed this with the radiologist. Lumbar spine MRI with and without contrast was performed. Chest x-ray was performed and was negative. The patient was given IV daptomycin and IV Zosyn. She was treated with Dilaudid for pain. She was doing very well after the hydration and pain management was administered. The patient was found to have an epidural abscess. I did place a consult with Dr. Adrián Crook of orthopedic spine. He felt that the patient is going to need operative intervention and would like her admitted to medicine. He will likely take her to the OR tomorrow. Consultation was made with the [facility] service. The patient was evaluated in the ER and admitted for further management by Dr. Nunez. Triage Nursing notes reviewed and agree them. Vital Signs: reviewed and remarkable for no significant abnormalities Differential diagnosis: Fracture, sciatica, Infection, dehydration, metabolic abnormality, hypo/hyperglycemia, electrolyte disturbance, anemia, hypoxia, cardiac sources, intracerebral event, toxicologic, neurologic, as well as other pathologies. Diagnostics interpreted by me: ECG: Twelve-lead ECG reveals sinus tachycardia at 118 bpm. PVCs present. No ST elevation or depression. Normal axis. Cardiac Monitoring: Cardiac monitoring ordered by me: The patient was placed on continuous cardiac monitoring and observed. It revealed a normal sinus rhythm at 94 beats per minute without ectopy or evidence of dysrhythmia. Imaging studies: X-rays, CT scans and MRI as noted above. HPI: The patient is a 80 year old female who presents to the Emergency Room with complaints of worsening low back pain. This started 10-14 days ago and is worsening. The patient also notes the following associated symptoms, weakness, poor appetite, difficulty caring for herself. The patient has been prescribed tramadol by her orthopedist, Dr. Hernandez. Patient was then seen in ER and was prescribed prednisone and percocet for relieving factors. Current pain is rated as 8/10. Pt denies LOC, headache, fevers, chills, diaphoresis, visual changes, neck pain, chest pain, breathing difficulties, nausea, vomiting, abdominal pain, melena, hematochezia, urinary symptoms, numbness, lymphadenopathy, rash, or other complaints. ROS: See above HPI for pertinent positives & negatives. A total of 10 systems reviewed and were otherwise negative. PAST MEDICAL HISTORY:See Below , htn PAST SURGICAL HISTORY:See Below, knee replacement FAMILY HISTORY:See Below SOCIAL HISTORY:See Below, lives alone HOME MEDICATIONS:See Below ALLERGIES:See Below VITALS:See Below PHYSICAL EXAMINATION: GENERAL: Awake, alert, uncomfortable-appearing, in no distress HENT: Normocephalic, atraumatic. Oropharynx with dry mucous membranes. EYES: Normal conjunctiva. Sclera non-icteric. NECK: Inspection normal. Non-tender. Supple. No nuchal rigidity. FROM. No masses. RESPIRATORY: Clear to auscultation. No wheezes. No rales. Normal respiratory effort. CARDIAC: Normal rate. Normal rhythm. No murmurs. No rubs. Extremities warm and well perfused. Pulses equal. No JVD. GI: Soft, non-distended. No tenderness to palpation. No rebound or guarding. No masses. RECTAL: Deferred. MUSCULOSKELETAL: Contusion to the right forearm. Chest examination reveals no tenderness. The back is symmetrical on inspection without obvious abnormality. Lumbar TTP. There is no CVA tenderness to palpation. No joint edema. LOWER EXTREMITIES: Calves are non-tender. Right 2+ edema. No discoloration. NEURO: Normal sensorium. No sensory or motor deficits noted. SKIN: No rash or jaundice noted. CRITICAL CARE: I have personally spent greater than 35 minutes of critical care time in the direct management of this patient. This includes bedside care, interpretation of diagnostic studies, and testing, discussion with consultants, patient, and family members, and other required patient management activities. These minutes are in excess of all separately billable procedures. 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 LAST SURGERY 2010> FOLLOWS DR. OWEN CHAVEZ IN [place] Chronic low back pain Chronic toe pain, right foot Cold intolerance Diverticulosis of colon Dyslipidemia Generalized osteoarthritis of multiple sites History of nicotine dependence Hypertension Menopause Osteoarthritis Right knee DJD Stasis edema of right lower extremity CHRONIC Surgical History H/O parotidectomy History of colonoscopy Hx of bilateral cataract extraction Hx of surgical procedure X4 TO [place] AREA FOR CANCER S/P cholecystectomy Family History Father Hypertension Diabetes Hyperlipidemia Mother Hypertension Social History Smoking Status: Never smoker Second Hand Exposure: Yes; Hx Alcohol Use: Yes Alcohol type: hard liquor Hx Substance Use: No Preferred Language: [place] Communication Ability: Effective Hearing Ability: Normal Boxing Promoter Required: No Beliefs That Will Affect Care: None Current Living Situation: Alone current occupational status: retired Feels Safe at Home: Yes Childhood Exposure to Second-Hand Smoke: No Dental Care, Regularly: Yes Physical Activity Frequency: 3-4 Times per Week Seatbelt Use: always Sunscreen Use: Yes Assistive Devices: Walker Allergies Allergies Allergy/AdvReac Type Severity Reaction Status Date / Time No Known Allergies Allergy Mild Verified 01/01/21 08:23 Home Meds Home Medications Medication Instructions Recorded Confirmed enalapril maleate 10 mg tablet 0 mg PO UD 01/02/21 01/02/21 (Vasotec) Previous Rx's Medication Instructions Recorded lovastatin 20 mg tablet 20 mg PO QPM #90 tab 03/30/20 triamterene 37.5 1 tab PO QAM #90 tab 03/30/20 mg-hydrochlorothiazide 25 mg tablet (Maxzide-25mg) tramadol 50 mg tablet 50 mg PO Q6H PRN #10 tab 12/28/20 oxycodone-acetaminophen 5 mg-325 1 tab PO Q12 PRN #20 tab 12/31/20 mg tablet (Percocet) prednisone 20 mg tablet 20 mg PO DAILY 5 Days #5 tab 12/31/20 Results & Data (ED) Vital Signs Vital Signs - 24 hr 01/02/21 08:15 01/02/21 08:31 01/02/21 10:30 Temperature 36.5 C Temperature Source Oral Pulse Rate 117 H Pulse Rate [Left Finger] 114 H 97 H Pulse Rhythm Regular Pulse Rhythm [Left Finger] Regular Pulse Strength Normal Pulse Strength [Left Finger] Normal Respiratory Rate 20 22 20 Respiratory Effort / Characteristics Non-Labored Spontaneous Non-Labored Spontaneous Respiratory Depth Normal Normal Respiratory Pattern Regular Regular Blood Pressure 144/117 H Blood Pressure [Left Arm] 147/80 H 140/76 Blood Pressure Mean 126 Blood Pressure Mean [Left Arm] 102 97 Blood Pressure Position Sitting Blood Pressure Position [Left Arm] Sitting Lying Pulse Oximetry 96 95 98 Oxygen Delivery Method Room Air Room Air Room Air Sepsis Recent Fever Within 48 Hours No Sepsis New/Unexplained Change in Mental Status No Sepsis Action Taken by Nursing No Action Required 01/02/21 11:22 01/02/21 11:30 01/02/21 13:14 Temperature Temperature Source Pulse Rate 117 H 99 H 120 H Pulse Rate [Left Finger] Pulse Rhythm Regular Pulse Rhythm [Left Finger] Pulse Strength Pulse Strength [Left Finger] Respiratory Rate 20 15 16 Respiratory Effort / Characteristics Respiratory Depth Respiratory Pattern Blood Pressure 176/126 H Blood Pressure [Left Arm] Blood Pressure Mean 142 Blood Pressure Mean [Left Arm] Blood Pressure Position Blood Pressure Position [Left Arm] Pulse Oximetry 98 95 Oxygen Delivery Method Room Air Sepsis Recent Fever Within 48 Hours Sepsis New/Unexplained Change in Mental Status Sepsis Action Taken by Nursing 01/02/21 15:00 Temperature Temperature Source Pulse Rate 90 Pulse Rate [Left Finger] Pulse Rhythm Pulse Rhythm [Left Finger] Pulse Strength Pulse Strength [Left Finger] Respiratory Rate 17 Respiratory Effort / Characteristics Respiratory Depth Respiratory Pattern Blood Pressure 113/66 Blood Pressure [Left Arm] Blood Pressure Mean 81 Blood Pressure Mean [Left Arm] Blood Pressure Position Blood Pressure Position [Left Arm] Pulse Oximetry 98 Oxygen Delivery Method Sepsis Recent Fever Within 48 Hours Sepsis New/Unexplained Change in Mental Status Sepsis Action Taken by Nursing Laboratory Data Result diagrams: 01/02/21 10:36 01/02/21 10:36 Lab Results 01/02/21 01/02/21 01/02/21 Range/Units 09:50 09:50 10:31 WBC (4.8-10.8) K/uL RBC (4.2-5.4) M/uL Hgb (12.0-16.0) g/dL Hct (37-47) % MCV (80-100) fL MCH (25-34) pg MCHC (32-36) g/dL RDW Std Deviation (36.4-46.3) fL RDW Coeff of Mya (11.5-14.5) % Plt Count (130-400) K/uL MPV (7.4-10.4) fL Immature Gran % (Auto) % Neut % (Auto) % Lymph % (Auto) % [place] % (Auto) % Eos % (Auto) % Baso % (Auto) % Neut # (Auto) (1.4-6.5) K/uL Lymph # (Auto) (1.2-3.4) K/uL [place] # (Auto) (0.11-0.59) K/uL Eos # (Auto) (0-0.5) K/uL Baso # (Auto) (0-0.2) K/uL Immature Gran # (Auto) (0.00-0.02) K/uL ESR (0-30) mm/hr Sodium (136-145) mmol/L Potassium (3.5-5.1) mmol/L Chloride (98-107) mmol/L Carbon Dioxide (21-32) mmol/L Anion Gap (3-11) BUN (7-18) mg/dl Creatinine (0.6-1.2) mg/dl Est Cr Clr Drug Dosing ml/min Est GFR ( Amer) ml/min Est GFR (Non-Af Amer) ml/min BUN/Creatinine Ratio (10-20) Glucose (70-99) mg/dl Calcium (8.5-10.1) mg/dl Magnesium (1.8-2.4) mg/dl Total Bilirubin (0.2-1) mg/dl AST (15-37) U/L ALT (12-78) U/L Alkaline Phosphatase (45-117) U/L Troponin I (0-0.045) ng/ml C-Reactive Protein (0-0.29) mg/dl Total Protein (6.4-8.2) gm/dl Albumin (3.4-5.0) gm/dl Globulin (2.5-4.0) gm/dl Albumin/Globulin Ratio (0.9-2) TSH (0.300-4.500) uIu/ml Urine Color Dark Yellow Urine Appearance Cloudy A (Clear) Urine pH 5.0 (4.5-7.5) Ur Specific [place] 1.018 (1.000-1.030) Urine Protein 1+ H (Negative) Urine Glucose (UA) Negative (Negative) Urine Ketones Trace H (Negative) Urine Blood Negative (Negative) Urine Nitrite Negative (Negative) Urine Bilirubin 1+ H (Negative) Urine Urobilinogen Negative (Negative) Ur Leukocyte Esterase Negative (Negative) Urine WBC (Auto) 1-5 (0-5) /hpf Urine RBC (Auto) 0-4 (0-4) /hpf U Hyaline Cast (Auto) 1-5 (0-5) /lpf U Epithel Cells (Auto) >30 H (0-5) /lpf Urine Bacteria (Auto) Negative (Negative) Amorphous Sediment Present A (None Prsent) Urine Yeast Not Reportable COVID-19 Eval Order Covid19 at [facility] SARS-CoV-2 (PCR) NEGATIVE (Negative) 01/02/21 01/02/21 01/02/21 Range/Units 10:36 10:36 10:36 WBC 15.99 H (4.8-10.8) K/uL RBC 3.39 L (4.2-5.4) M/uL Hgb 10.9 L (12.0-16.0) g/dL Hct 32.6 L (37-47) % MCV 96.2 (80-100) fL MCH 32.2 (25-34) pg MCHC 33.4 (32-36) g/dL RDW Std Deviation 47.3 H (36.4-46.3) fL RDW Coeff of Mya 13.4 (11.5-14.5) % Plt Count 179 (130-400) K/uL MPV 11.4 H (7.4-10.4) fL Immature Gran % (Auto) 1.9 % Neut % (Auto) 89.2 % Lymph % (Auto) 3.9 % [place] % (Auto) 4.9 % Eos % (Auto) 0.0 % Baso % (Auto) 0.1 % Neut # (Auto) 14.27 H (1.4-6.5) K/uL Lymph # (Auto) 0.63 L (1.2-3.4) K/uL [place] # (Auto) 0.78 H (0.11-0.59) K/uL Eos # (Auto) 0.00 (0-0.5) K/uL Baso # (Auto) 0.01 (0-0.2) K/uL Immature Gran # (Auto) 0.30 H (0.00-0.02) K/uL ESR 93 H (0-30) mm/hr Sodium 132 L (136-145) mmol/L Potassium 4.1 (3.5-5.1) mmol/L Chloride 102 (98-107) mmol/L Carbon Dioxide 23 (21-32) mmol/L Anion Gap 7.0 (3-11) BUN 60 H (7-18) mg/dl Creatinine 1.54 H (0.6-1.2) mg/dl Est Cr Clr Drug Dosing 29.5 ml/min Est GFR ( Amer) 36.6 ml/min Est GFR (Non-Af Amer) 31.5 ml/min BUN/Creatinine Ratio 38.8 H (10-20) Glucose 120 H (70-99) mg/dl Calcium 9.0 (8.5-10.1) mg/dl Magnesium 2.1 (1.8-2.4) mg/dl Total Bilirubin 0.9 (0.2-1) mg/dl AST 41 H (15-37) U/L ALT 31 (12-78) U/L Alkaline Phosphatase 141 H (45-117) U/L Troponin I < 0.015 (0-0.045) ng/ml C-Reactive Protein 22.60 H (0-0.29) mg/dl Total Protein 6.6 (6.4-8.2) gm/dl Albumin 1.6 L (3.4-5.0) gm/dl Globulin 5.0 H (2.5-4.0) gm/dl Albumin/Globulin Ratio 0.3 L (0.9-2) TSH 0.536 (0.300-4.500) uIu/ml Urine Color Urine Appearance (Clear) Urine pH (4.5-7.5) Ur Specific [place] (1.000-1.030) Urine Protein (Negative) Urine Glucose (UA) (Negative) Urine Ketones (Negative) Urine Blood (Negative) Urine Nitrite (Negative) Urine Bilirubin (Negative) Urine Urobilinogen (Negative) Ur Leukocyte Esterase (Negative) Urine WBC (Auto) (0-5) /hpf Urine RBC (Auto) (0-4) /hpf U Hyaline Cast (Auto) (0-5) /lpf U Epithel Cells (Auto) (0-5) /lpf Urine Bacteria (Auto) (Negative) Amorphous Sediment (None Prsent) Urine Yeast COVID-19 Eval Order SARS-CoV-2 (PCR) (Negative) Administered Medications Discontinued Medications Gadobutrol (Gadobutrol 65ml Vial) 7 ml IV ONCE ONE Stop: 01/02/21 12:28 Last Admin: 01/02/21 12:27 Dose: 7 ml Documented by: [id number] Hydromorphone HCl (Hydromorphone Inj 0.5 Mg/0.5 Ml Syr) 0.25 mg IV Q15M PRN PRN Reason: Pain Stop: 01/16/21 08:50 Last Admin: 01/02/21 09:47 Dose: 0.25 mg Documented by: [id number] Hydromorphone HCl (Hydromorphone Inj 0.5 Mg/0.5 Ml Syr) 0.25 mg IV NOW STA Stop: 01/02/21 16:43 Last Admin: 01/02/21 17:23 Dose: 0.25 mg Documented by: [id number] Sodium Chloride (Nss 1000ml) 500 mls @ 999 mls/hr IV .Q31M ONE Stop: 01/02/21 09:19 Last Infusion: 01/02/21 10:18 Dose: 0 mls/hr Documented by: [id number] Admin: 01/02/21 09:47 Dose: 999 mls/hr Documented by: [id number] Sodium Chloride (Nss 1000ml) 1,000 mls @ 125 mls/hr IV .Q8H STA Stop: 01/02/21 16:48 Last Infusion: 01/02/21 17:50 Dose: 0 mls/hr Documented by: [id number] Admin: 01/02/21 09:30 Dose: 125 mls/hr Documented by: [id number] Piperacillin Sod/Tazobactam Sod (Zosyn) 4.5 gm in 120 mls @ 240 mls/hr IV NOW ONE Stop: 01/02/21 11:55 Last Infusion: 01/02/21 14:21 Dose: 0 mls/hr Documented by: [id number] Admin: 01/02/21 13:32 Dose: 240 mls/hr Documented by: [id number] Daptomycin 350 mg/ Syringe 7 mls @ 3.5 mls/min IV NOW ONE; Protocol Stop: 01/02/21 11:27 Last Admin: 01/02/21 13:31 Dose: 3.5 mls/min Documented by: [id number] Sodium Chloride (Nss 1000ml) 500 mls @ 999 mls/hr IV .Q31M ONE Stop: 01/02/21 13:59 Last Infusion: 01/02/21 14:21 Dose: 0 mls/hr Documented by: [id number] Admin: 01/02/21 13:32 Dose: 999 mls/hr Documented by: [id number] Ondansetron HCl (Ondansetron Inj 2 Mg/Ml 2 Ml Vial) 4 mg IV NOW STA Stop: 01/02/21 08:52 Last Admin: 01/02/21 09:46 Dose: 4 mg Documented by: [id number] Imaging Data Radiologist's Impression: Head CT 01/02/21 08:49 CT OF THE HEAD WITHOUT CONTRAST CLINICAL HISTORY: fall COMPARISON STUDY: No previous studies for comparison. CT DOSE: 614.27 mGy.cm TECHNIQUE: Helical axial images of the head were obtained without IV contrast. Automated exposure control was utilized for the study. A dose lowering technique was utilized adhering to the principles of ALARA. FINDINGS: No acute intracranial hemorrhage, midline shift or mass effect is present. White matter hypodensity suggests small vessel disease. The ventricular system is unremarkable. The basal cisterns are patent. No extra-axial collection s are present. There are no findings to suggest acute dural sinus thrombosis or acute territorial infarct. No significant calvarial abnormalities are present. Visualized portions of the sinuses and mastoid air cells are clear. IMPRESSION: 1. No acute intracranial findings. 2. No calvarial fracture. ACT 112: Negative or not required by law. Electronically signed by: Camron Falcon M.D. 01/02/2021 10:[address] 01/02/21 08:49 CT OF THE LUMBAR SPINE CLINICAL HISTORY: fall, low back pain COMPARISON STUDY: CT of the abdomen and pelvis May 09, 2015. TECHNIQUE: Helical axial images of the lumbar spine were obtained. Sagittal and coronal reconstructions were viewed. Automated exposure control was utilized for the study. A dose lowering technique was utilized adhering to the principles of ALARA. FINDINGS: For purposes of numbering on this exam, the L5-S1 disc space is assigned to axial image [id number]. There is moderate dextroscoliosis of the lumbar spine. Vertebral body heights are maintained. There is no fracture. S evere multilevel facet arthrosis is present. There is also severe multilevel disc space narrowing with osteophytosis and vacuum disc phenomenon at multiple levels. No definite bony erosions are identified. Note is made of multiple locules of gas within the anterior epidural space which extends from the lower L1 through the mid L3 levels. There is probable associated fluid within the anterior epidural space. These findings are suboptimally assessed on this unenhanced CT. There is no convincing CT evidence for discitis. Note is made of a small amount of left paravertebral gas adjacent to the L2-L3 disc space slightly extending into the left psoas. No suspicious osseous lesions are present. Bilateral renal lesions are suboptimally assessed on this unenhanced exam. These may reflect a combination of simple and hyperdense cysts. IMPRESSION: 1. Multiple locules of gas within the anterior epidural space which extend from the lower L1 through mid L3 levels. Probable associated fluid. This gas is nonspecific. Although this could be secondary to vacuum disc phenomenon with extension of gas into the epidural space, an epidural abscess could appear similar and is the diagnosis of exclusion. Correlation with clinical evidence for an infectious process is recommended. In addition, MRI of the lumbar spine with and without contrast is recommended. Minimal left paravertebral gas L2-L3 level. No CT evidence for discitis. Findings discussed with Dr. Yanes at time of dictation. 2. Severe multilevel degenerative disc disease and facet arthrosis within lumbar spine. 3. No acute lumbar spine fracture. 4. Moderate dextroscoliosis of the lumbar spine. ACT 112: Negative or not required by law. Electronically signed by: Camron Falcon M.D. 01/02/2021 10:19 AM Wrist X-Ray 01/02/21 08:49 XR wrist RT min 3V routine CLINICAL HISTORY: Right wrist pain following fall. COMPARISON: None FINDINGS: There is slight widening of the scapholunate interval. Right wrist soft tissue swelling is noted. No acute fracture. There is moderate osteoarthritis of the right first carpometacarpal joint. There is also osteoarthritis of the triscaphe joint. IMPRESSION: 1. No acute fracture within the right wrist. 2. Right wrist soft tissue swelling. 3. Mild widening of the scapholunate interval. 4. Moderate osteoarthritis of the right first carpometacarpal joint. ACT 112: Negative or not required by law. Electronically signed by: Camron Falcon M.D. 01/02/2021 9:41 AM Chest X-Ray 01/02/21 08:54 XR chest 1V portable HISTORY: weakness COMPARISON: Chest 08/11/2019. FINDINGS: The lungs are clear. Cardiac silhouette is normal in size. No pleural effusions. No pneumothorax. IMPRESSION: No acute process. ACT 112: Negative or not required by law. Electronically signed by: Rolando Dumont M.D. 01/02/2021 9:55 AM Wrist X-Ray 01/02/21 08:54 XR wrist LT min 3V routine CLINICAL HISTORY: fall COMPARISON: None FINDINGS: No acute fracture is identified. There is widening of the scapholunate interval which measures 5 mm. This is probably chronic. There is severe osteoarthritis of the left first carpometacarpal joint and moderate oste oarthritis of the triscaphe joint. Left wrist soft tissue swelling is present. IMPRESSION: 1. No acute fracture within the left wrist. 2. Left wrist soft tissue swelling. 3. Significant widening of the scapholunate interval. This is age-indeterminate but likely chronic. 4. Severe osteoarthritis of the left first carpometacarpal joint and moderate osteoarthritis of the triscaphe joint. ACT 112: Negative or not required by law. Electronically signed by: Camron Falcon M.D. 01/02/2021 9:51 AM Lumbar Spine MRI 01/02/21 10:17 MR lumbar spine wo/w con CLINICAL HISTORY: 80 years-old Female with eval for epidural abscess. Follow up study in a patient with possible epidural abscess. Acute low back pain with fall COMPARISON: CT lumbar spine of same day TECHNIQUE: Multiplanar, multi sequence MRI of the lumbar spine was performed both with and without the use of 7.0 mL Gadavist FINDINGS: There is atrophy of the psoas and paraspinal musculature. The study is mildly motion degraded. The conus medullaris terminates at T12-L1. Signal within the i gauri thoracic spinal cord is normal. Multilevel intervertebral disc space narrowing with spondylitic spurring and facet arthrosis as below. There is fluid signal within the T12-L1 through L4-L5 intervertebral disc spaces. No definite endplate erosions are identified. Mild endplate edema at L2-L3 and L5-S1. Mild lower lumbar paravertebral edema. There is confirmation of the anterior epidural air and fluid collection measuring up to 1.8 x 0.8 cm in transverse and AP dimensions which extends from the level of L1-L2 to the level of L3-L4 extending for a craniocaudal dimension of approximately 6.4 cm. This demonstrates associated peripheral enhancement mass effect on the central canal as below. Mid lumbar dextroscoliosis. Complex cyst of the left kidney. Bilateral perinephric stranding. T12-L1: Moderate intervertebral disc space narrowing with spondylitic spurring, posterior annular disc bulge and moderate facet arthrosis. The central canal and left neural foramen are patent. Moderate to severe right neural foraminal narrowing. L1-L2: Moderate intervertebral disc space narrowing with spondylitic spurring and posterior annular disc bulge with ligamentum flavum thickening and severe facet arthrosis. Epidural fluid collections interspace is also noted as above. There is moderate to severe central canal stenosis with AP dimension of the thecal sac measuring up to 6 mm. Moderate to severe right with moderate left neural foraminal narrowing. L2-L3: Mild to moderate intervertebral disc space narrowing with moderate spondylitic spurring, ligament thickening and severe facet arthrosis. Anterior epidural fluid collection as above. Severe central canal stenosis with AP dimension of the thecal sac measuring up to 4.5 mm. Severe narrowing of the right lateral recess. Moderate right with moderate to severe left neural foraminal stenosis. L3-L4: Moderate intervertebral disc space narrowing with spondylitic spurring and posterior annular disc bulge. Ligamentum flavum thickening with severe facet arthrosis. Intradural fluid collection as above. Severe central canal stenosis with AP dimension of the thecal sac measuring approximately 3 mm. Moderate right with severe left neural foraminal narrowing. L4-L5: Moderate intervertebral disc space narrowing with spondylitic spurring and posterior disc osteophyte complex. Ligamentum flavum thickening with severe facet arthrosis. Severe central canal stenosis with AP dimension of the thecal sac measuring 3 mm. Moderate right with severe left neuroforaminal narrowing. L5-S1: Mild to moderate intervertebral disc space narrowing with spondylitic spurring and posterior annular disc bulge favoring the right foraminal distribution. Ligamentum flavum thickening with severe facet arthrosis and facet effusions, left greater than right. Mild central canal stenosis with AP dimension of the thecal sac measuring 9 mm. Moderate bilateral foraminal narrowi ng. IMPRESSION: 1. Confirmation of the epidural abscess extending from L1-L2 to the L3-L4 level overall measuring 1.8 x 0.8 x 6.4 cm. This collection along with associated discogenic degeneration and facet arthrosis contributes to multilevel central canal stenosis as detailed above. Neurosurgical consultation recommended. 2. There is fluid signal within several intervertebral disc spaces which is favored to be on a degenerative basis. No definitive evidence of acute discitis/osteomyelitis. 3. Multilevel neural foraminal narrowing as above. ACT 112: Negative or not required by law. The above report was generated using voice recognition software. It may contain grammatical, syntax or spelling errors. Electronically signed by: Mickey Forrest M.D. 01/02/2021 1:18 PM Discharge Plan Visit Data Chief Complaint: Back Injury/Pain Stated Complaint: lower back pain ED Provider: Eduard Yanes Discharge Problem: Epidural abscess Patient Disposition: Admitted As Inpatient Discharge Instructions Interventions: ED Discharge Assessment Last Done: 01/02/21 18:27
[2021-01-02] MEDS ORDERED: HYDROmorphone INJ 0.5 MG/0.5 ML SYR IV PRN (08:51)
[2021-01-02] MEDS ORDERED: ONDANSETRON INJ 2 MG/ML 2 ML VIAL IV STA (08:51)
--- NOTE | 2021-01-02 09:43 | XRay Report ---
XR wrist RT min 3V routine CLINICAL HISTORY: Right wrist pain following fall. COMPARISON: None FINDINGS: There is slight widening of the scapholunate interval. Right wrist soft tissue swelling is noted. No acute fracture. There is moderate osteoarthritis of the right first carpometacarpal joint. There is also osteoarthritis of the triscaphe joint. IMPRESSION: 1. No acute fracture within the right wrist. 2. Right wrist soft tissue swelling. 3. Mild widening of the scapholunate interval. 4. Moderate osteoarthritis of the right first carpometacarpal joint. ACT 112: Negative or not required by law. Electronically signed by: Camron Falcon M.D. 01/02/2021 9:41 AM
--- NOTE | 2021-01-02 09:53 | XRay Report ---
XR wrist LT min 3V routine CLINICAL HISTORY: fall COMPARISON: None FINDINGS: No acute fracture is identified. There is widening of the scapholunate interval which cisco ures 5 mm. This is probably chronic. There is severe osteoarthritis of the left first carpometacarpal joint and moderate osteoarthritis of the triscaphe joint. Left wrist soft tissue swelling is present . IMPRESSION: 1. No acute fracture within the left wrist. 2. Left wrist soft tissue swelling. 3. Significant widening of the scapholunate interval. This is age-indeterminate but likely chronic. 4. Severe osteoarthritis of the left first carpometacarpal joint and moderate osteoarthritis of the t riscaphe joint. ACT 112: Negative or not required by law. Electronically signed by: Camron Falcon M.D. 01/02/2021 9:51 AM
--- NOTE | 2021-01-02 09:57 | XRay Report ---
XR chest 1V portable HISTORY: weakness COMPARISON: Chest 08/11/2019. FINDINGS: The lungs are clear. Cardiac silhouette is normal in size. No pleural effusions. No pneumot horax. IMPRESSION: No acute process. ACT 112: Negative or not required by law. Electronically signed by: Rolando Dumont M.D. 01/02/2021 9:55 AM
--- NOTE | 2021-01-02 10:03 | CT Scan Report ---
CT OF THE HEAD WITHOUT CONTRAST CLINICAL HISTORY: fall COMPARISON STUDY: No previous studies for comparison. CT DOSE: 614.27 mGy.cm TECHNIQUE: Helical axial images of the head were obtained without IV contrast. Automated exposure con trol was utilized for the study. A dose lowering technique was utilized adhering to the principles o f ALARA. FINDINGS: No acute intracranial hemorrhage, midline shift or mass effect is present. White matter hyp odensity suggests small vessel disease. The ventricular system is unremarkable. The basal cisterns ar e patent. No extra-axial collections are present. There are no findings to suggest acute dural sinus thrombosis or acute territorial infarct. No significant calvarial abnormalities are present. Visualiz ed portions of the sinuses and mastoid air cells are clear. IMPRESSION: 1. No acute intracranial findings. 2. No calvarial fracture. ACT 112: Negative or not required by law. Electronically signed by: Camron Falcon M.D. 01/02/2021 10:02 AM
--- NOTE | 2021-01-02 10:20 | CT Scan Report ---
CT OF THE LUMBAR SPINE CLINICAL HISTORY: fall, low back pain COMPARISON STUDY: CT of the abdomen and pelvis May 09, 2015. TECHNIQUE: Helical axial images of the lumbar spine were obtained. Sagittal and coronal reconstruct ions were viewed. Automated exposure control was utilized for the study. A dose lowering technique was utilized adhering to the principles of ALARA. FINDINGS: For purposes of numbering on this exam, the L5-S1 disc space is assigned to axial image [id number]. There is moderate dextroscoliosis of the lumbar spine. Vertebral body heights are maintained. There is no fracture. Severe multilevel facet arthrosis is present. There is also severe multilevel d isc space narrowing with osteophytosis and vacuum disc phenomenon at multiple levels. No definite bon y erosions are identified. Note is made of multiple locules of gas within the anterior epidural space which extends from the lower L1 through the mid L3 levels. There is probable associated fluid within the anterior epidural space. These findings are suboptimally assessed on this unenhanced CT. There i s no convincing CT evidence for discitis. Note is made of a small amount of left paravertebral gas ad jacent to the L2-L3 disc space slightly extending into the left psoas. No suspicious osseous lesions are present. Bilateral renal lesions are suboptimally assessed on this unenhanced exam. These may ref lect a combination of simple and hyperdense cysts. IMPRESSION: 1. Multiple locules of gas within the anterior epidural space which extend from the lower L1 through mid L3 levels. Probable associated fluid. This gas is nonspecific. Although this could be secondary t o vacuum disc phenomenon with extension of gas into the epidural space, an epidural abscess could den ear similar and is the diagnosis of exclusion. Correlation with clinical evidence for an infectious p rocess is recommended. In addition, MRI of the lumbar spine with and without contrast is recommended. Minimal left paravertebral gas L2-L3 level. No CT evidence for discitis. Findings discussed with Dr. Yanes at time of dictation. 2. Severe multilevel degenerative disc disease and facet arthrosis within lumbar spine. 3. No acute lumbar spine fracture. 4. Moderate dextroscoliosis of the lumbar spine. ACT 112: Negative or not required by law. Electronically signed by: Camron Falcon M.D. 01/02/2021 10:19 AM
[2021-01-02 10:44] LABS: Hematocrit (blood only) 32.6 % (37-47); Hemoglobin 10.9 g/dL (12.0-16.0); Mean Corpuscular Hemoglobin 32.2 pg (25-34); Mean Corpuscular Hgb Conc 33.4 g/dL (32-36); Mean Corpuscular Volume 96.2 fL (80-100); Mean Platelet Volume 11.4 fL (7.4-10.4); Platelet Count 179 K/uL (130-400); RDW Coefficient of Variation 13.4 % (11.5-14.5); RDW Standard Deviation 47.3 fL (36.4-46.3); Red Blood Count 3.39 M/uL (4.2-5.4); White Blood Count 15.99 K/uL (4.8-10.8)
[2021-01-02 10:48] LABS: Appearance Urine Cloudy (Clear); Bacteria Urine Automated Negative (Negative); Blood Urine Negative (Negative); Color Urine Dark Yellow; Epithelial Cell Urine Auto >30 /lpf (0-5); Glucose Urine UA Negative (Negative); Ketones Urine Trace (Negative); Leukocyte Esterase Urine Negative (Negative); Nitrite Urine Negative (Negative); Protein Urine 1+ (Negative); Specific Gravity Urine 1.018 (1.000-1.030); Urobilinogen Urine Negative (Negative)
[2021-01-02 10:50] LABS: Bilirubin Urine 1+ (Negative)
[2021-01-02 11:01] LABS: Alanine Aminotransferase 31 U/L (12-78); Albumin Level 1.6 gm/dl (3.4-5.0); Aspartate Aminotransferase 41 U/L (15-37); BUN Creatinine Ratio 38.8 (10-20); Blood Urea Nitrogen 60 mg/dl (7-18); Carbon Dioxide 23 mmol/L (21-32); Chloride 102 mmol/L (98-107); Creatinine Clr Calc Pharmacy 29.5 ml/min; Est GFR (African American) 36.6 ml/min; Est GFR (Non-African American) 31.5 ml/min; Glucose 120 mg/dl (70-99); Magnesium 2.1 mg/dl (1.8-2.4); Potassium 4.1 mmol/L (3.5-5.1); Sodium 132 mmol/L (136-145)
[2021-01-02 11:01] LABS: Amorphous Sediment Urine Present (None Prsent)
[2021-01-02 11:02] LABS: RBC Urine Automated 0-4 /hpf (0-4)
[2021-01-02 11:03] LABS: Basophils # (auto) 0.01 K/uL (0-0.2); Basophils % (auto) 0.1 %; Immature Granulocytes % (auto) 1.9 %; Lymphocytes # (auto) 0.63 K/uL (1.2-3.4); Lymphocytes % (auto) 3.9 %; Monocytes # (auto) 0.78 K/uL (0.11-0.59); Monocytes % (auto) 4.9 %; Neutrophils # (auto) 14.27 K/uL (1.4-6.5); Neutrophils % (auto) 89.2 %
[2021-01-02 11:12] LABS: Albumin Globulin Ratio 0.3 (0.9-2); Alkaline Phosphatase 141 U/L (45-117); Bilirubin,Total 0.9 mg/dl (0.2-1); Thyroid Stimulating Hormone 0.536 uIu/ml (0.300-4.500); Total Protein 6.6 gm/dl (6.4-8.2); Troponin I < 0.015 ng/ml (0-0.045)
[2021-01-02] MEDS ORDERED: DAPTOmycin 350 MG in SYRINGE 0 ML IV ONE (11:26)
[2021-01-02] MEDS ORDERED: PIPERACILL/TAZOBAC CONSULT ACTIVE PRN (11:26)
[2021-01-02] MEDS ORDERED: PIPERACILLIN/TAZOBACTAM 4.5 GM/120 ML BAG IV ONE (11:26)
[2021-01-02] MEDS ORDERED: GADOBUTROL 65ML VIAL IV ONE (12:27)
--- NOTE | 2021-01-02 13:19 | Magnetic Resonance Report ---
MR lumbar spine wo/w con CLINICAL HISTORY: 80 years-old Female with eval for epidural abscess. Follow up study in a patient w ith possible epidural abscess. Acute low back pain with fall COMPARISON: CT lumbar spine of same day TECHNIQUE: Multiplanar, multi sequence MRI of the lumbar spine was performed both with and without th e use of 7.0 mL Gadavist FINDINGS: There is atrophy of the psoas and paraspinal musculature. The study is mildly motion degraded. The co nus medullaris terminates at T12-L1. Signal within the imaged thoracic spinal cord is normal. Multile sammie intervertebral disc space narrowing with spondylitic spurring and facet arthrosis as below. There is fluid signal within the T12-L1 through L4-L5 intervertebral disc spaces. No definite endplate ero sions are identified. Mild endplate edema at L2-L3 and L5-S1. Mild lower lumbar paravertebral edema. There is confirmation of the anterior epidural air and fluid collection measuring up to 1.8 x 0.8 cm in transverse and AP dimensions which extends from the level of L1-L2 to the level of L3-L4 extending for a craniocaudal dimension of approximately 6.4 cm. This demonstrates associated peripheral enhanc ement mass effect on the central canal as below. Mid lumbar dextroscoliosis. Complex cyst of the left kidney. Bilateral perinephric stranding. T12-L1: Moderate intervertebral disc space narrowing with spondylitic spurring, posterior annular di sc bulge and moderate facet arthrosis. The central canal and left neural foramen are patent. Moderate to severe right neural foraminal narrowing. L1-L2: Moderate intervertebral disc space narrowing with spondylitic spurring and posterior annular disc bulge with ligamentum flavum thickening and severe facet arthrosis. Epidural fluid collections i nterspace is also noted as above. There is moderate to severe central canal stenosis with AP dimensio n of the thecal sac measuring up to 6 mm. Moderate to severe right with moderate left neural foramina l narrowing. L2-L3: Mild to moderate intervertebral disc space narrowing with moderate spondylitic spurring, liga ment thickening and severe facet arthrosis. Anterior epidural fluid collection as above. Severe centr al canal stenosis with AP dimension of the thecal sac measuring up to 4.5 mm. Severe narrowing of the right lateral recess. Moderate right with moderate to severe left neural foraminal stenosis. L3-L4: Moderate intervertebral disc space narrowing with spondylitic spurring and posterior annular disc bulge. Ligamentum flavum thickening with severe facet arthrosis. Intradural fluid collection as above. Severe central canal stenosis with AP dimension of the thecal sac measuring approximately 3 mm . Moderate right with severe left neural foraminal narrowing. L4-L5: Moderate intervertebral disc space narrowing with spondylitic spurring and posterior disc ost eophyte complex. Ligamentum flavum thickening with severe facet arthrosis. Severe central canal steno sis with AP dimension of the thecal sac measuring 3 mm. Moderate right with severe left neuroforamina l narrowing. L5-S1: Mild to moderate intervertebral disc space narrowing with spondylitic spurring and posterior annular disc bulge favoring the right foraminal distribution. Ligamentum flavum thickening with sever e facet arthrosis and facet effusions, left greater than right. Mild central canal stenosis with AP d imension of the thecal sac measuring 9 mm. Moderate bilateral foraminal narrowing. IMPRESSION: 1. Confirmation of the epidural abscess extending from L1-L2 to the L3-L4 level overall measuring 1.8 x 0.8 x 6.4 cm. This collection along with associated discogenic degeneration and facet arthrosis co ntributes to multilevel central canal stenosis as detailed above. Neurosurgical consultation recommen ded. 2. There is fluid signal within several intervertebral disc spaces which is favored to be on a degene rative basis. No definitive evidence of acute discitis/osteomyelitis. 3. Multilevel neural foraminal narrowing as above. ACT 112: Negative or not required by law. The above report was generated using voice recognition software. It may contain grammatical, syntax o r spelling errors. Electronically signed by: Mickey Forrest M.D. 01/02/2021 1:18 PM
[2021-01-02] MEDS ORDERED: SODIUM CHLORIDE 0.9% 250 ML IV PRN (13:31)
--- NOTE | 2021-01-02 16:02 | History & Physical Report ---
Date of Service January 02, 2021 Assessment & Plan (1) Epidural abscess: Plan: Epidural Abscess, L1-L4 - Discussed w/ Dr. Crook. Anticipate OR drainage for source control 01/03. MRI: Confirmation of the epidural abscess extending from L1-L2 to the L3-L4 level overall measuring 1.8 x 0.8 x 6.4 cm. This collection along with associated discogenic degeneration and facet arthrosis contributes to multilevel central canal stenosis as detailed above. Neurosurgical consultation recommended. There is fluid signal within several intervertebral disc spaces which is favored to be on a degenerative basis. No definitive evidence of acute discitis/osteomyelitis. Multilevel neural foraminal narrowing as above. CT: Multiple locules of gas within the anterior epidural space which extend from the lower L1 through mid L3 levels. Probable associated fluid. This gas is nonspecific. Although this could be secondary to vacuum disc phenomenon with extension of gas into the epidural space, an epidural abscess could appear similar and is the diagnosis of exclusion. Correlation with clinical evidence for an infectious process is recommended. In addition, MRI of the lumbar spine with and without contrast is recommended. Minimal left paravertebral gas L2-L3 level. No CT evidence for discitis. Findings discussed with Dr. Yanes at time of dictation. Severe multilevel degenerative disc disease and facet arthrosis within lumbar spine. No acute lumbar spine fracture. Moderate dextroscoliosis of the lumbar spine. Received empiric Dapto/Zosyn in ER Convert to vancomycin/Rocephin empiric treatment of epidural abscess WBC 15.99 Creatinine 1.54 (baseline 1.31.45) CRP 22.6 Covid negative - CXR: naf Neurovascular check every 4 hours (2) CKD (chronic kidney disease) stage 3, GFR 30-59 ml/min: Plan: Acute on chronic kidney disease Baseline GFR 3059, under few Baseline creatinine approximately 1.31.45 Acutely elevated creatinine of 1.54 ROZ versus prerenal azotemia Antihypertensives held as below Continue fluids as noted BMP every morning (3) Dyslipidemia: Plan: Hyperlipidemia Continue lovastatin 20 mg every afternoon (4) Hypertension: Plan: Hypertension Enalapril 20 mg a.m., 10 mg p.m. held for elevated creatinine Triameterene/hydrochlorothiazide held for elevated creatinine (5) Stasis edema of right lower extremity: Plan: No acute change, patient denies history of heart failure, has not been on Lasix Continue elevation as tolerated, gentle compression if needed (6) Status post total right knee replacement: Plan: No acute change (7) Wrist pain: Plan: Bilateral Wrist Pain -XR-L Wrist: No acute fracture within the left wrist. Left wrist soft tissue swelling. Significant widening of the scapholunate interval. This is age- indeterminate but likely chronic. Severe osteoarthritis of the left first carpometacarpal joint and moderate osteoarthritis of the triscaphe joint. -XR-R Wrist: No acute fracture within the right wrist. Right wrist soft tissue swelling. Mild widening of the scapholunate interval. Moderate osteoarthritis of the right first carpometacarpal joint. Pain control as above Plan: DVT prophylaxis: SCDs, chronic prophylaxis deferred pending surgical drainage of spinal abscess Diet: n.P.o. at midnight, clears until midnight Dispo: PCU CODE STATUS: DNR/DNI, discussed with patient at bedside History of Present Illness Primary Care Provider: Ayesha Agrawal MD Aline is an 80-year-old female with a past medical history of lumbar spondylosis, CKD, parotid neoplasm s/p parotidectomy, nicotine dependence, hypertension, osteoarthritis, dyslipidemia, diverticulosis who presented with worsening low back pain for 10 to 14 days with associated weakness, poor appetite, and global fatigue. Patient had failed to improve with tramadol/prednisone/Percocet. She is found to have a L1-L3 epidural abscess on imaging which was discussed with spinal surgery, was recommended for dmission and further management. Was not recommended for transfer by spinal surgery. 2 weeks ago had a fall from a chair 2/2 weakness and fatigue with pain at her R knee which was previuosly replaced. Talked to Ortho Dr. Hernandez and was seen by the PA and had imaging of the knee and back. XR at that time looked OK of the knee, and noted arthritis in the low back. Was given tramadol/prednisone which did not help her pain. Back pain gradually increased and was seen in the ER on Friday (2 days ago) and was given an IV pain medication which helped fo ra little while and was given prednisone/percocet. Did not fill the prednisone/percocet Friday because pharmacy was closed, took yesterday including the pain medicine and felt her pain was still terrible, and she had bilateral lower leg weakness and couldn't get up to bed. Called 911 who helped her to bed, but couldn't get out of bed and prsented to the ER via EMS for persistent and worsened LE weakness. R very weak, L leg 'ok can't do all the work.' Also has bilateral wrist pain from leaning heavily on her walker in the last week. No change in R lymphedema. Has been peeing and voiding normally. Last BM 2 days ago. No nausea, but has not been very hungry. Intermittently cold in the AM, otherwise denies fevers chills. Arms bilat w/ have some bruises/discoloration 'from old age, always like that. I have thin skin' No numbness/tingling in the feed, denies saddle neuropathy Medical History: Reviewed. Medications: Reviewed Surgical History: Reviewed Allergies: Reviewed Social History: Former smoker, quit 5 years ago. Smoked for many decades 1ppd- 2ppw. Denies alcohol use and recreational drug use. Code Status:DNR/DNI ,confirmed with pt at bedside Allergies Allergy/AdvReac Type Severity Reaction Status Date / Time No Known Allergies Allergy Mild Verified 01/01/21 08:23 Home Medications Medication Instructions Recorded Confirmed Type lovastatin 20 mg tablet 20 mg PO QPM #90 tab 03/30/20 01/02/21 Rx triamterene 37.5 1 tab PO QAM #90 tab 03/30/20 01/02/21 Rx mg-hydrochlorothiazide 25 mg tablet (Maxzide-25mg) tramadol 50 mg tablet 50 mg PO Q6H PRN #10 tab 12/28/20 01/02/21 Rx oxycodone-acetaminophen 5 mg-325 1 tab PO Q12 PRN #20 tab 12/31/20 01/02/21 Rx mg tablet (Percocet) prednisone 20 mg tablet 20 mg PO DAILY 5 Days #5 tab 12/31/20 01/02/21 Rx enalapril maleate 10 mg tablet 0 mg PO UD 01/02/21 01/02/21 History ([facility]) Past Med/Surg History Medical History Acquired lymphedema RLE, wears compression stocking 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 LAST SURGERY 2010> FOLLOWS DR. OWEN CHAVEZ IN [place] Chronic low back pain Chronic toe pain, right foot Cold intolerance Diverticulosis of colon Dyslipidemia Generalized osteoarthritis of multiple sites History of nicotine dependence Hypertension Menopause Osteoarthritis Right knee DJD Stasis edema of right lower extremity CHRONIC Surgical History H/O parotidectomy History of colonoscopy Hx of bilateral cataract extraction Hx of surgical procedure X4 TO [place] [facility] FOR CANCER S/P cholecystectomy Family History Father Hypertension Diabetes Hyperlipidemia Mother Hypertension Social History Smoking Status: Never smoker Second Hand Exposure: Yes; Hx Alcohol Use: Yes Alcohol type: hard liquor Hx Substance Use: No Preferred Language: Gambian Communication Ability: Effective Hearing Ability: Normal Cash Applications Coordinator Required: No Beliefs That Will Affect Care: None Current Living Situation: Alone current occupational status: retired Feels Safe at Home: Yes Childhood Exposure to Second-Hand Smoke: No Dental Care, Regularly: Yes Physical Activity Frequency: 3-4 Times per Week Seatbelt Use: always Sunscreen Use: Yes Assistive Devices: Walker Review of Systems Review of Systems: All systems reviewed & are unremarkable except as noted in HPI & below Physical Exam Physical Exam: General: A&Ox3. NAD. Cooperative. HEENT: Atraumatic, normocephalic. Visual acuity grossly intact, hearing grossly intact. Pulm: CTAB A&P. -wheezes, -rales, -rhonchi. Symmetrical chest rise. No increase work of breathing. No respiratory distress. Cardiac: Tachycardic, -mrg. Radial pulses intact and symmetrical. Abdominal: Nontender, nondistended, soft. BS present. CRANIAL NERVES: II: Pupils equal and reactive, no relative afferent pupillary defect, no VF cuts III, IV, : EOM intact, no gaze preference or deviation, no nystagmus. V: normal sensation in V1, V2, and V3 segments bilaterally VII: no asymmetry, no nasolabial fold flattening VIII: normal hearing to speech IX, X: normal palatal elevation, no uvular deviation XI: 5/5 head turn and 5/5 shoulder shrug bilaterally XII: midline tongue protrusion UA: Bilateral distal arm contusions, no crepitus, nontender to palpation. Radial pulses intact and symmetrical. Mild bilateral resting tremor persistent on intention. RUE: 5/5 Shoulder internal rotation, external rotation, flexion, extension, abduction, adduction 5/5 Elbow flexion/extension, wrist flexion/extension 5/5 contact person strength, finger flexion/extension, interosseus LUE: 5/5 Shoulder internal rotation, external rotation, flexion, extension, abduction, adduction 5/5 Elbow flexion/extension, wrist flexion/extension 5/5 contact person strength, finger flexion/extension, interosseus RLE: Hip flexion, ankle plantar flexion limited by pain at back. Ankle dorsiflexion 5/5 LLE: 5/5 to hip flexion/extension, knee flexion/extension, ankle dorsiflexion/plantarflexion REFLEXES: 2/4 patellar, no clonus SENSORY: Normal to touch temp in upper and lower extremities without deficit or asymmetry Results & Data Results & Data ([facility]) Vital Signs (Past 12 Hours) Vital Signs Temp Pulse Pulse Resp BP BP Pulse Ox 01/02/21 15:00 90 17 113/66 98 01/02/21 13:14 120 H 16 176/126 H 95 01/02/21 11:30 99 H 15 01/02/21 11:22 117 H 20 98 01/02/21 10:30 97 H 20 140/76 98 01/02/21 08:31 114 H 22 147/80 H 95 01/02/21 08:15 36.5 C 117 H 20 144/117 H 96 PG Care Time/CCT Total # of Minutes Spent Total Time Spent with Patient: Total time spent is greater than 50% in coordination of care (as documented) at patient's floor/unit and/or counseling patient: Coding Level of Care Code 23222 Initial Inpt Care Lvl 3 Diagnoses Epidural abscess G06.2 CKD (chronic kidney disease) stage 3, GFR 30-59 ml/min N18.30 Dyslipidemia E78.5 Hypertension I10 Stasis edema of right lower extremity I87.301 Status post total right knee replacement Z96.651 Wrist pain M25.539
[2021-01-02] MEDS ORDERED: HYDROmorphone INJ 0.5 MG/0.5 ML SYR IV STA (16:42)
[2021-01-02] MEDS ORDERED: ACETAMINOPHEN 325 MG TAB PO PRN (19:41)
[2021-01-02] MEDS ORDERED: VANCOMYCIN CONSULT ACTIVE PRN (19:41)
[2021-01-02] MEDS ORDERED: cefTRIAXone SODIUM 1,000 MG in DEXTROSE 5% 50 ML IV SCH (20:00)
[2021-01-02] MEDS: HYDROmorphone INJ 0.5 MG/0.5 ML SYR IV PRN (20:13)
[2021-01-02] MEDS: NSS + 20MEQ KCL 20 MEQ/1,000 ML BAG IV SCH (20:27)
--- NOTE | 2021-01-02 20:29 | Pharmacy Report ---
Pharmacy Vanc AUC Short Note - Date of Service January 02, 2021 - Assessment & Plan Assessment * 80 year old F receiving Vancomycin and Ceftriaxone for treatment of epidural abscess. * No significant PMHx. * Leukocytosis of 16k. Afebrile. SCr 1.54 mg/dL, near baseline. * Cultures pending. Plan Vancomycin * AUC/GINNY is the preferred PK/PD target for vancomycin * AUC guided dosing is effective and associated with decreased risk of nephrotoxicity compared to traditional trough targets * Goal AUC/GINNY of 400 - 600 mg/L.hr * Loading dose = 1500 mg IV x 1 * Maintenance dose = 1000 mg IV every 24 hours * Current dose expected to achieve steady state AUC/GINNY and trough of 585 mg/L.hr and 19.5 mcg/mL, respectively. This regimen is associated with a 16% risk of nephrotoxicity. * Trough level ordered for 01/05/21 Pharmacy will continue to follow and will adjust dose/frequency as necessary. Thank you.
[2021-01-02] MEDS ORDERED: VANCOMYCIN HCL 1,500 MG in SODIUM CHLORIDE 0.9% 500 ML IV ONE (20:30)
[2021-01-02] MEDS ORDERED: cefTRIAXone SODIUM 1,000 MG in DEXTROSE 5% 50 ML IV ONE (21:00)
[2021-01-02] MEDS: HYDROmorphone INJ 1 MG/ML SYRINGE IV PRN (22:25)
[2021-01-02] MEDS: LOVASTATIN 20 MG TAB PO SCH (22:39)
[2021-01-03] MEDS: HYDROmorphone INJ 1 MG/ML SYRINGE IV PRN ×4 (04:14→20:32)
[2021-01-03] MEDS ORDERED: SODIUM CHLORIDE 0.9% 1000ML 1,000 ML IV ONE (04:23)
--- NOTE | 2021-01-03 05:15 | Electrocardiogram Report ---
Test Reason : Blood Pressure : / mmHG Vent. Rate : 118 BPM Atrial Rate : 118 BPM P-R Int : 208 ms QRS Dur : 084 ms QT Int : 356 ms P-R-T Axes : 075 064 048 degrees QTc Int : 498 ms Sinus tachycardia with with frequent Premature atrial complexes with premature ventricular or aberran tly conducted complexes Low voltage QRS When compared with ECG of 11-AUG-2019 15:46, No significant change Confirmed by Ezekiel Mcleod ([id number]) on 01/03/2021 5:14:39 AM Referred By: REFERRED SELF Confirmed By:Ezekiel Mcleod
[2021-01-03] MEDS: NSS + 20MEQ KCL 20 MEQ/1,000 ML BAG IV SCH ×2 (06:34→15:54)
[2021-01-03 07:18] LABS: Hematocrit (blood only) 29.7 % (37-47); Hemoglobin 9.7 g/dL (12.0-16.0); Mean Corpuscular Hemoglobin 31.8 pg (25-34); Mean Corpuscular Hgb Conc 32.7 g/dL (32-36); Mean Corpuscular Volume 97.4 fL (80-100); Platelet Count 176 K/uL (130-400); RDW Coefficient of Variation 13.7 % (11.5-14.5); RDW Standard Deviation 48.8 fL (36.4-46.3); Red Blood Count 3.05 M/uL (4.2-5.4); White Blood Count 16.11 K/uL (4.8-10.8)
[2021-01-03 07:49] LABS: Basophils # (auto) 0.01 K/uL (0-0.2); Basophils % (auto) 0.1 %; Immature Granulocytes # (auto) 0.14 K/uL (0.00-0.02); Immature Granulocytes % (auto) 0.9 %; Lymphocytes # (auto) 1.11 K/uL (1.2-3.4); Lymphocytes % (auto) 6.9 %; Monocytes # (auto) 0.98 K/uL (0.11-0.59); Monocytes % (auto) 6.1 %; Neutrophils # (auto) 13.87 K/uL (1.4-6.5); Toxic Granulation 1+
[2021-01-03 07:54] LABS: Albumin Level 1.3 gm/dl (3.4-5.0); BUN Creatinine Ratio 43.1 (10-20); Calcium 8.4 mg/dl (8.5-10.1); Creatinine Clr Calc Pharmacy 34.8 ml/min; Est GFR (African American) 39.7 ml/min; Est GFR (Non-African American) 34.2 ml/min
[2021-01-03 08:01] LABS: Albumin Globulin Ratio 0.3 (0.9-2); Bilirubin,Total 0.8 mg/dl (0.2-1); C Reactive Protein 22.1 mg/dl (0-0.29); Globulin 4.6 gm/dl (2.5-4.0); Total Protein 5.9 gm/dl (6.4-8.2)
[2021-01-03] MEDS: cefTRIAXone SODIUM 2,000 MG in DEXTROSE 5% 50 ML IV SCH ×2 (08:36→20:32)
[2021-01-03] MEDS ORDERED: VANCOMYCIN HCL 1,500 MG in SODIUM CHLORIDE 0.9% 500 ML IV ONE (12:00)
--- NOTE | 2021-01-03 12:42 | Hospitalist Progress Note ---
Date of Service January 03, 2021 Assessment & Plan (1) Epidural abscess: Plan: Epidural Abscess, L1-L4 -With positive blood cultureslikely had strep bacteremia as the root cause, with epidural infection as a secondary "fall out". Continue antibioticsonce sensitivities are back, we can tailor it. Transthoracic echo, infectious disease consult as it relates to duration of antibiotic treatment, optimal antibiotics, and whether or not a BRIDGER would be warranted for possible endocarditis (and her unique situation, while her unknown duration of bacteremia would make concern for endocarditis high, the high likelihood she will need a prolonged course of IV antibiotics for her epidural abscess makes it less likely that a BRIDGER would change the course of care, but we will defer to infectious disease expertise in this regard). -For operative cleanout/decompressionhopefully today Continue monitoring, postop will do PT/OT, discussed with patient high likelihood of needing rehab.- For clarificationseptic present on admission (2) CKD (chronic kidney disease) stage 3, GFR 30-59 ml/min: Plan: Acute on chronic kidney disease Baseline GFR 3059, under few Baseline creatinine approximately 1.31.45 Was very mild ROZ versus prerenal azotemia on admission, now back to the high end of her baseline range. Obviously continue to follow basic metabolic panel given the context. (3) Dyslipidemia: Plan: Hyperlipidemia Continue home statin (4) Hypertension: Plan: Follow blood pressureright now in an acceptable range, hold MERVIN and diuretic given mild ROZ on admission, sepsis on admission, and likelihood of shifting volume status with surgery, infection, etc. (5) Stasis edema of right lower extremity: Plan: Likely venous stasis. (6) Status post total right knee replacement: Plan: Serial history and exam, but right now nothing appearing consistent with a septic joint (7) Wrist pain: Plan: More than likely underlying DJD with flareup using her arms more to move around when her back has been bad Plan: DVT prophylaxis: SCDs, pharmacologic prophylaxis deferred pending surgical drainage of spinal abscess Diet: n.P.o pending probable surgery Dispo: PCU CODE STATUS: DNR/DNI, discussed with patient at bedside by admitting physician Admission and Anticipated Discharge Date Admission Date: January 02, 2021 Subjective Feeling about the same. Overall right now her back pain is better than before, but it is mostly because she is not moving. Generally she feels fairly lousy, has a lot of back pain. No new radicular symptoms or bowel or bladder symptoms. She gives a good recount of her last 2 weeks or so of HPI and review of systems, no new changes compared to her H&P. Review of systems otherwise negative except for as above. Review of Systems Review of Systems: All systems reviewed & are unremarkable except as noted in HPI & below Physical Exam Physical Exam: In general she is awake and alert oriented, in fact pleasantly sarcastic using good humor during our discussion. Laying very still, but in so doing looks like she is in no distress. HEENT normocephalic atraumatic mucous membranes moist. Breathing unlabored no accessory muscle use good effort. Skin shows no rashes no pallor or icterus. Neuro without focal deficits. Mental status intact as above. Results & Data Results & Data ([facility]) Vital Signs (Past 12 Hours) Vital Signs Temp Pulse Resp BP BP Pulse Ox 01/03/21 11:35 97.5 F L 105 H 20 137/73 94 01/03/21 07:32 97.5 F L 99 H 18 121/77 93 01/03/21 04:15 119/71 01/03/21 03:57 97.7 F 109 H 19 86/49 L 91 PG Care Time/CCT Total # of Minutes Spent Total Time Spent with Patient: Total time spent is greater than 50% in coordination of care (as documented) at patient's floor/unit and/or counseling patient: Coding Level of Care Code 28080 Subseq Hosp Care Lvl 3 Diagnoses Epidural abscess G06.2 CKD (chronic kidney disease) stage 3, GFR 30-59 ml/min N18.30 Dyslipidemia E78.5 Hypertension I10 Stasis edema of right lower extremity I87.301 Status post total right knee replacement Z96.651 Wrist pain M25.539
--- NOTE | 2021-01-03 12:57 | XCELERA ---
[id number]
--- NOTE | 2021-01-03 14:13 | Hospitalist Progress Note ---
Date of Service January 03, 2021 Assessment & Plan (1) Epidural abscess: Plan: Epidural Abscess, L1-L4 -Most likely secondary to primary strep bacteremia per BCx -Daptomycin/Zosyn in ER, now on Vancomycin/Rocephin, will narrow pending sensitivities -TTE ordered for evaluation of endocarditis -ID consult placed -Orthopedics spine team aware- hopefully OR drainage today -Continue monitoring, postop PT/OT, pt will likely need rehab after discharge (2) CKD (chronic kidney disease) stage 3, GFR 30-59 ml/min: Plan: Acute on chronic kidney disease Baseline GFR 3059, under few Baseline creatinine approximately 1.31.45 Was very mild ROZ versus prerenal azotemia on admission, now back to the high end of her baseline range. Obviously continue to follow basic metabolic panel given the context. (3) Dyslipidemia: Plan: Hyperlipidemia Continue home statin (4) Hypertension: Plan: Follow blood pressureright now in an acceptable range, hold MERVIN and diuretic given mild ROZ on admission, sepsis on admission, and likelihood of shifting volume status with surgery, infection, etc. (5) Stasis edema of right lower extremity: Plan: Likely venous stasis. (6) Status post total right knee replacement: Plan: Serial history and exam, but right now nothing appearing consistent with a septic joint (7) Wrist pain: Plan: More than likely underlying DJD with flareup using her arms more to move around when her back has been bad Plan: DVT prophylaxis: SCDs, pharmacologic prophylaxis deferred pending surgical drainage of spinal abscess Diet: n.P.o pending probable surgery Dispo: PCU CODE STATUS: DNR/DNI, discussed with patient at bedside by admitting physician Admission and Anticipated Discharge Date Admission Date: January 02, 2021 Subjective Pt states she still has significant back pain about 8/10 severity but just slightly better than admission. Denies any fevers, chills, bowel/bladder incontinence, weakness, numbness. States her hands hurt since she has been using them more often to stabilize herself after the back pain started. Review of Systems Review of Systems: +Back pain Physical Exam Physical Exam: General: laying in bed, no acute distress HEENT- moist mucous membranes, no LAD Resp- CTAB, unlabored respirations CV- normal S1, S2, RRR, no murmurs appreciated Neuro- 5/5 strength of upper extremities, no sensory deficits, no focal motor deficits Skin: chronic bruises of upper extremities Results & Data Results & Data ([facility]) Vital Signs (Past 12 Hours) Vital Signs Temp Pulse Resp BP BP Pulse Ox 01/03/21 11:35 36.4 C L 105 H 20 137/73 94 01/03/21 07:32 36.4 C L 99 H 18 121/77 93 01/03/21 04:15 119/71 01/03/21 03:57 36.5 C 109 H 19 86/49 L 91 Resident Activity Tracking Resident Involvement: Resident Care Provided Care Provided: Adult Hospital Medicine
--- NOTE | 2021-01-03 15:49 | Orthopedic Consultation ---
Date of Consultation January 03, 2021 Assessment & Plan (1) Epidural abscess: This time the patient appears to have a progressive lumbar epidural abscess extending from L1-L3. I reviewed her MRI findings and clinical course with the patient. I am recommending a lumbar decompression evacuation of the abscess. 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 Risk benefits pros cons and alternatives were outlined. Patient stands agrees. I will make her n.p.o. after midnight hopefully able to perform surgery tomorrow. History of Present Illness Reason for Consultation: Back pain Attending Physician: Eliot Sharma DO History of Present Illness This is an 80-year-old female presents to emergency room after having several falls over the past week. She describes worsening incapacitating back pain with leg weakness. She is clearly unable to stand for any length of time. This has been progressive in nature. At this time she is denies any radicular pain while she is in bed. She states she does get leg pain with standing. Back pain can be incapacitating with activity. Allergies Allergy/AdvReac Type Severity Reaction Status Date / Time No Known Allergies Allergy Mild Verified 01/01/21 08:23 Home Medications Medication Instructions Recorded Confirmed Type lovastatin 20 mg tablet 20 mg PO QPM #90 tab 03/30/20 01/02/21 Rx triamterene 37.5 1 tab PO QAM #90 tab 03/30/20 01/02/21 Rx mg-hydrochlorothiazide 25 mg tablet (Maxzide-25mg) tramadol 50 mg tablet 50 mg PO Q6H PRN #10 tab 12/28/20 01/02/21 Rx oxycodone-acetaminophen 5 mg-325 1 tab PO Q12 PRN #20 tab 12/31/20 01/02/21 Rx mg tablet (Percocet) prednisone 20 mg tablet 20 mg PO DAILY 5 Days #5 tab 12/31/20 01/02/21 Rx enalapril maleate 10 mg tablet 0 mg PO UD 01/02/21 01/02/21 History (Vasotec) Patient History Medical History Acquired lymphedema RLE, wears compression stocking 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 LAST SURGERY 2010> FOLLOWS DR. OWEN CHAVEZ IN [place] Chronic low back pain Chronic toe pain, right foot Cold intolerance Diverticulosis of colon Dyslipidemia Generalized osteoarthritis of multiple sites History of nicotine dependence Hypertension Menopause Osteoarthritis Right knee DJD Stasis edema of right lower extremity CHRONIC Surgical History H/O parotidectomy History of colonoscopy Hx of bilateral cataract extraction Hx of surgical procedure X4 TO [place] AREA FOR CANCER S/P cholecystectomy Family History Father Hypertension Diabetes Hyperlipidemia Mother Hypertension Social History Smoking Status: Former smoker Second Hand Exposure: No; Do You Dip or Chew Tobacco: No; Hx Alcohol Use: No Hx Substance Use: No Preferred Language: German Communication Ability: Effective Hearing Ability: Normal Key Entry Operator Required: No Beliefs That Will Affect Care: None Current Living Situation: Alone current occupational status: retired How many Children do You have: 0 Other Information That Helps Us Care for You: No Feels Safe at Home: Yes Safety Concerns: Feels Safe At This Time Childhood Exposure to Second-Hand Smoke: No Dental Care, Regularly: Yes Physical Activity Frequency: 3-4 Times per Week Seatbelt Use: always Sunscreen Use: Yes Assistive Devices: Cane and Walker Physical Exam Physical Exam: Patient is alert and oriented. She demonstrates reasonable plantar flexion dorsiflexion but weakness with hip flexors and quadriceps bilaterally. Sensory appears to be symmetric and intact. Deep tendon reflexes diminished. Results & Data ([facility]) Vital Signs (Past 12 Hours) Vital Signs Temp Pulse Resp BP BP Pulse Ox 01/03/21 11:35 36.4 C L 105 H 20 137/73 94 01/03/21 07:32 36.4 C L 99 H 18 121/77 93 01/03/21 04:15 119/71 01/03/21 03:57 36.5 C 109 H 19 86/49 L 91
[2021-01-03] MEDS ORDERED: VANCOMYCIN HCL 1,000 MG in SODIUM CHLORIDE 0.9% 250 ML IV SCH (20:00)
[2021-01-03] MEDS: LOVASTATIN 20 MG TAB PO SCH (20:33)
[2021-01-04] MEDS: NSS + 20MEQ KCL 20 MEQ/1,000 ML BAG IV SCH ×3 (01:48→16:48)
[2021-01-04] MEDS: HYDROmorphone INJ 1 MG/ML SYRINGE IV PRN ×3 (06:11→19:39)
[2021-01-04 07:21] LABS: Basophils # (auto) 0.01 K/uL (0-0.2); Basophils % (auto) 0.1 %; Eosinophils # (auto) 0.01 K/uL (0-0.5); Eosinophils % (auto) 0.1 %; Hematocrit (blood only) 28.9 % (37-47); Hemoglobin 9.3 g/dL (12.0-16.0); Immature Granulocytes # (auto) 0.11 K/uL (0.00-0.02); Immature Granulocytes % (auto) 0.8 %; Lymphocytes # (auto) 1.62 K/uL (1.2-3.4); Mean Corpuscular Hemoglobin 31.4 pg (25-34); Mean Corpuscular Hgb Conc 32.2 g/dL (32-36); Mean Corpuscular Volume 97.6 fL (80-100); Mean Platelet Volume 11.2 fL (7.4-10.4); Monocytes # (auto) 0.85 K/uL (0.11-0.59); Monocytes % (auto) 6.3 %; Neutrophils # (auto) 10.88 K/uL (1.4-6.5); Neutrophils % (auto) 80.7 %; Platelet Count 205 K/uL (130-400); RDW Standard Deviation 50.4 fL (36.4-46.3); Red Blood Count 2.96 M/uL (4.2-5.4); White Blood Count 13.48 K/uL (4.8-10.8)
[2021-01-04 07:50] LABS: BUN Creatinine Ratio 48.4 (10-20); Calcium 8.7 mg/dl (8.5-10.1); Creatinine Clr Calc Pharmacy 44.8 ml/min; Est GFR (African American) 53.2 ml/min; Est GFR (Non-African American) 45.9 ml/min; Potassium 4.6 mmol/L (3.5-5.1)
[2021-01-04] MEDS: cefTRIAXone SODIUM 2,000 MG in DEXTROSE 5% 50 ML IV SCH ×2 (08:17→19:42)
[2021-01-04] MEDS ORDERED: fentaNYL citrate 100 MCG/2 ML VIAL ONE ×3 (09:05→11:56)
[2021-01-04] MEDS ORDERED: MIDAZOLAM HCL 1 MG/ML 2ML VIAL ONE (09:05)
--- NOTE | 2021-01-04 09:37 | Pharmacy Report ---
Pharmacy Vanc AUC Short Note - Date of Service January 04, 2021 - Assessment & Plan Assessment 80 year old F receiving Vancomycin and Ceftriaxone for treatment of epidural abscess. * Plan for lumbar decompression evacuation of the abscess today * ID consulted to follow patient Plan Vancomycin * Scr improving more today, therefore vancomycin dosing adjusted to reflect improved clearance * AUC/GINNY is the preferred PK/PD target for vancomycin * AUC guided dosing is effective and associated with decreased risk of nephrotoxicity compared to traditional trough targets * Vancomycin dosing adjusted to 1 gm iv q 18 hrs * Trough level of ~17 mcg/mL is predicted to achieve target AUC/GINNY of 400-600 mg/L.hr and may be associated with a 13 % risk of nephrotoxicity * Trough or random level ordered for: 01/06 at 0130 Pharmacy will continue to follow and will adjust dose/frequency as necessary. Thank you.
--- NOTE | 2021-01-04 09:43 | History & Physical Bridge Note ---
Date of Service January 04, 2021 History & Physical Bridge Note I have examined the patient, reviewed the History & Physical and in the interval since the performance of the History & Physical I have noted the following changes of clinical significance: no changes noted Lumbar decompression L1-L5.
[2021-01-04] MEDS ORDERED: ATROPINE SULFATE 0.1 MG/ML 10ML SYR IV PRN (09:51)
[2021-01-04] MEDS ORDERED: ONDANSETRON INJ 2 MG/ML 2 ML VIAL IV PRN ×2 (09:51→13:36)
[2021-01-04] MEDS ORDERED: fentaNYL citrate 100 MCG/2 ML VIAL IV PRN (09:51)
[2021-01-04] MEDS ORDERED: HYDROmorphone INJ 1 MG/ML SYRINGE IV PRN (09:51)
[2021-01-04] MEDS ORDERED: ePHEDrine sulfate 50 MG/ML AMP IV PRN (09:51)
--- NOTE | 2021-01-04 09:53 | Anesthesiology Consultation ---
Date of Service January 04, 2021 Assessment & Plan (1) Encounter for pre-operative examination: Chart Review Chart Review: Acceptable Risk for Surgery and Patient NOT seen in Pre Admission Testing Consults Requested none History Surgery Operation Date: 01/04/21 09:35 Proposed Procedures p L1-L4 Decompression (No Fusion) - Gautam Crook DO Height/Weight Height: 5 ft 5 in Weight: 93 kg Allergies Allergy/AdvReac Type Severity Reaction Status Date / Time No Known Allergies Allergy Mild Verified 01/01/21 08:23 Medications Home Medications Medication Instructions Recorded Confirmed Last Taken lovastatin 20 mg tablet 20 mg PO QPM #90 tab 03/30/20 01/02/21 01/01/21 triamterene 37.5 1 tab PO QAM #90 tab 03/30/20 01/02/21 01/02/21 mg-hydrochlorothiazide 25 mg tablet (Maxzide-25mg) tramadol 50 mg tablet 50 mg PO Q6H PRN #10 tab 12/28/20 01/02/21 Unknown oxycodone-acetaminophen 5 mg-325 1 tab PO Q12 PRN #20 tab 12/31/20 01/02/21 01/02/21 mg tablet (Percocet) prednisone 20 mg tablet 20 mg PO DAILY 5 Days #5 tab 12/31/20 01/02/21 01/02/21 enalapril maleate 10 mg tablet 0 mg PO UD 01/02/21 01/02/21 01/02/21 (Vasotec) Active Medications Generic Name Dose Route Start Last Admin Trade Name Freq PRN Reason Stop Dose Admin Hydromorphone HCl 0.25 mg 01/02/21 19:41 01/02/21 20:13 Hydromorphone Inj 0.5 Mg/0.5 Ml Syr IV 01/16/21 19:40 0.25 mg Q2H PRN Administration Moderate Pain (4,5,6) on NRS Hydromorphone HCl 0.5 mg 01/02/21 19:41 01/04/21 06:11 Hydromorphone Inj 1 Mg/Ml Syringe IV 01/16/21 19:40 0.5 mg Q2H PRN Administration Severe Pain (7,8,9,10) on NRS Potassium Chloride/Sodium Chloride 20 meq in 1,000 mls @ 125 mls/hr 01/02/21 20:00 01/04/21 01:48 Normal Saline W/20 Meq Kcl IV 02/01/21 19:59 125 mls/hr .Q8H MILES Administration Ceftriaxone Sodium 2,000 mg/ 70 mls @ 140 mls/hr 01/03/21 08:00 01/04/21 08:54 Dextrose IV 01/13/21 07:59 Infused Q12H MILES Infusion Protocol Lovastatin 20 mg 01/02/21 21:00 01/03/21 20:33 Lovastatin 20 Mg Tab PO 02/01/21 20:59 20 mg QPM MILES Administration NPO Date Last Intake of Fluids: 01/03/21 Time Last Intake of Fluids: 23:55 Date Last Intake of Solids: 01/03/21 Time Last Intake of Solids: 21:00 Past Medical History Medical History (Updated 01/04/21 @ 09:53 by Lionel Juares MD) Acquired lymphedema RLE, wears compression stocking 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 LAST SURGERY 2010> FOLLOWS DR. OWEN CHAVEZ IN [place] Chronic low back pain Chronic toe pain, right foot Cold intolerance Diverticulosis of colon Dyslipidemia Encounter for pre-operative examination Generalized osteoarthritis of multiple sites History of nicotine dependence Hypertension Menopause Osteoarthritis Right knee DJD Stasis edema of right lower extremity CHRONIC Exercise / Class Metabolic Activity II 4-5 Yardwork/Stairs/Walk up hill Past Family History Family History Father Hypertension Diabetes Hyperlipidemia Mother Hypertension Past Surgical History Surgical History H/O parotidectomy History of colonoscopy Hx of bilateral cataract extraction Hx of surgical procedure X4 TO [place] AREA FOR CANCER S/P cholecystectomy Past Anesthesia History No Hx of Anesthesia Complications and No Family Hx of Anesthesia Complications History of PONV No Hx of PONV and No Hx of Motion Sickness Social History Smoking Status: Former smoker tobacco type: cigarettes Do You Dip or Chew Tobacco: No Hx Alcohol Use: No Alcohol type: hard liquor alcohol intake frequency: a few times a month Hx Substance Use: No substance use type: does not use Physical Exam Vital Signs Last Vital Signs Temp 37.2 C 01/04/21 09:16 Pulse 92 H 01/04/21 09:16 Resp 18 01/04/21 09:16 BP 175/100 H 01/04/21 09:16 Pulse Ox 95 01/04/21 09:16 Testing Laboratory Results 01/04/21 06:35 01/04/21 06:35 Urine Color Dark Yellow 01/02/21 10:31 Urine Appearance Cloudy (Clear) A 01/02/21 10:31 Urine pH 5.0 (4.5-7.5) 01/02/21 10:31 Ur Specific [place] 1.018 (1.000-1.030) 01/02/21 10:31 Urine Protein 1+ (Negative) H 01/02/21 10:31 Urine Glucose (UA) Negative (Negative) 01/02/21 10:31 Urine Ketones Trace (Negative) H 01/02/21 10:31 Urine Nitrite Negative (Negative) 01/02/21 10:31 Ur Leukocyte Esterase Negative (Negative) 01/02/21 10:31 Urine WBC (Auto) 1-5 /hpf (0-5) 01/02/21 10:31 Urine RBC (Auto) 0-4 /hpf (0-4) 01/02/21 10:31 U Hyaline Cast (Auto) 1-5 /lpf (0-5) 01/02/21 10:31 U Epithel Cells (Auto) >30 /lpf (0-5) H 01/02/21 10:31 Urine Bacteria (Auto) Negative (Negative) 01/02/21 10:31 01/02/21 13:15 Aerobic Blood Culture - Preliminary Blood Group B Beta Strep Anaerobic Blood Culture - Preliminary Group B Beta Strep Gram negative bacilli 01/02/21 13:22 Aerobic Blood Culture - Preliminary Blood Group B Beta Strep Anaerobic Blood Culture - Preliminary Group B Beta Strep 01/02/21 10:31 Urine Culture - Preliminary Urine,Straight Cath No growth - Less than 1,000 colonies/mL, Final report to follow. Electrocardiogram sinys tach. low voltage
[2021-01-04] MEDS ORDERED: GENTAMICIN SULFATE 40 MG/ML 2 ML VIAL ONE (09:56)
[2021-01-04] MEDS ORDERED: VANCOMYCIN HCL 1000MG/20ML VIAL ONE (09:56)
[2021-01-04] MEDS ORDERED: EPINEPHrine INJ 1 MG/ML AMP ONE (09:57)
[2021-01-04] MEDS ORDERED: BUPIVACAINE 0.5 % 5 MG/1 ML MPF 30ML VIAL ONE (09:57)
--- NOTE | 2021-01-04 10:20 | Hospitalist Progress Note ---
Date of Service January 04, 2021 Assessment & Plan (1) Epidural abscess: Plan: Epidural Abscess, L1-L4 -Most likely secondary to primary strep bacteremia per BCx -Daptomycin/Zosyn in ER, switched to Vancomycin and Rocephin -TTE negative for endocarditis -ID consult placed, will officially see her tomorrow but in interim recommended d/c Vancomycin and add Flagyl 500 mg q8h to Rocephin, get repeat blood cultures -BCx positive for Group B strep and gram negative bacili- -Orthopedics spine team aware- OR drainage with lumbar decompression planned today -Continue monitoring, postop PT/OT, pt will likely need rehab after discharge (2) CKD (chronic kidney disease) stage 3, GFR 30-59 ml/min: Plan: Acute on chronic kidney disease Baseline GFR 3059, under few Baseline creatinine approximately 1.31.45 Was very mild ROZ versus prerenal azotemia on admission, now back to the high end of her baseline range. Obviously continue to follow basic metabolic panel given the context. (3) Dyslipidemia: Plan: Hyperlipidemia Continue home statin (4) Hypertension: Plan: Follow blood pressureright now in an acceptable range, hold MERVIN and diuretic given mild ROZ on admission, sepsis on admission, and likelihood of shifting volume status with surgery, infection, etc. (5) Stasis edema of right lower extremity: Plan: Likely venous stasis. (6) Status post total right knee replacement: Plan: Serial history and exam, but right now nothing appearing consistent with a septic joint (7) Wrist pain: Plan: More than likely underlying DJD with flareup using her arms more to move around when her back has been bad Plan: DVT prophylaxis: SCDs, pharmacologic prophylaxis deferred pending surgical drainage of spinal abscess Diet: n.P.o pending probable surgery Dispo: PCU CODE STATUS: DNR/DNI, discussed with patient at bedside by admitting physician Admission and Anticipated Discharge Date Admission Date: January 02, 2021 Subjective Pt states she still has significant back pain about 8/10 severity, unchanged from day prior yet slightly better than on admission. Denies any fevers, chills, bowel/bladder incontinence, weakness, numbness. States her hands still hurt since she has been using them more often to stabilize herself after the back pain started. Review of Systems Review of Systems: +Back pain Physical Exam Physical Exam: General: laying in bed, no acute distress HEENT- moist mucous membranes, no LAD Resp- CTAB, unlabored respirations CV- normal S1, S2, RRR, no murmurs appreciated Neuro- 5/5 strength of upper extremities, no sensory deficits, no focal motor deficits Skin: chronic bruises of upper extremities Results & Data Results & Data ([facility]) Vital Signs (Past 12 Hours) Vital Signs Temp Pulse Pulse Resp BP BP Pulse Ox 01/04/21 09:16 37.2 C 92 H 18 175/100 H 95 01/04/21 08:00 78 01/04/21 07:54 36.3 C L 92 H 19 134/76 93 01/04/21 04:54 36.3 C L 103 H 24 140/75 94 01/03/21 22:47 36.8 C 107 H 18 112/71 92 Resident Activity Tracking Resident Involvement: Resident Care Provided Care Provided: Adult Hospital Medicine
[2021-01-04] MEDS ORDERED: PROPOFOL IV EMULSION 10 MG/ML 20 ML VIAL IV ONE (10:45)
[2021-01-04] MEDS ORDERED: ROCURONIUM BROMIDE 10 MG/ML 5 ML VIAL IV ONE (10:45)
[2021-01-04] MEDS ORDERED: LIDOCAINE 2% 2 ML VIAL/AMP(20MG/ML) INFIL ONE (10:45)
[2021-01-04] MEDS ORDERED: ONDANSETRON INJ 2 MG/ML 2 ML VIAL ONE (10:46)
[2021-01-04] MEDS ORDERED: DEXAMETHASONE SOD INJ 4 MG/ML VIAL ONE (10:46)
[2021-01-04] MEDS ORDERED: PHENYLEPHRINE 100MCG/ML 5ML SYR ONE (10:46)
[2021-01-04] MEDS ORDERED: FLOSEAL HEMOSTATIC MATRIX 10ML TOP ONE (11:47)
[2021-01-04] MEDS ORDERED: VANCOMYCIN HCL 1,000 MG in SODIUM CHLORIDE 0.9% 250 ML IV SCH ×2 (12:00→14:00)
--- NOTE | 2021-01-04 12:07 | Operative Report ---
Post Operative Report Pre & Post Diagnosis Operation Date: 01/04/21 09:35 Pre-Op Diagnosis: Lumbar epidural abscess Post-Op Diagnosis: Same I identified the patient and participated in the time-out.: Yes Procedure Operation Date: 01/04/21 09:35 Actual Procedures Lumbar decompression with bilateral medial facetectomies L1-2, L2-L3 and L3-L4 with evacuation of epidural abscess.. Surgeon Gautam Crook, DO Roll Scale Worker None Estimated Blood Loss 50 Findings See Below The patient is 5 foot 5 weight 93 kg with a BMI in excess of 34. Patient's body habitus did contribute to significant technical difficulty requiring her deeper retractors and longer instruments were removed from the procedure. This had at least 50% increased operative time. Specimens Cultures from the lumbar epidural space at L2 Indications This is a 80-year-old female who presents with severe back pain and evidence of a lumbar epidural abscess. She subsequently is here for urgent decompression evacuation of infection. Description of Procedure Patient was met with identified informed consent obtained. Patient was then taken to the operative suite underwent ablation placed in a prone position on the Gagan table atop the Jeffry frame. All bony prominences well-padded eyes inspected to ensure no external pressure placed upon the. This point the lumbar spine was prepped and draped in a sterile fashion. Sharp dissection with the assistance of Bovie cautery was performed down to and exposing the lamina of L1 L2-L3 and L4. I then performed a midline decompression with bilateral medial facetectomies from a caudal cephalad fashion at L3-4 L2-3 and L1-L2. I then explored the anterior space posterior vertebral body at L2 and L3 and identified cloudy fluid. Cultures were obtained. Explored the area several times copiously irrigated the region. I then placed approximately 7 cc of stimulant beads impregnated with vancomycin gentamicin throughout the incision. 15 round HARLEY drain was inserted. Incision was closed with 1 Vicryl to fascia 2-0 Vicryl subcutaneously and 4 Monocryl for final skin closure. Steri-Strips dressings placed. Patient will continue PACU stable condition. I attest to the content of the Intraoperative Record and any orders documented therein. Any exceptions are noted below.
--- NOTE | 2021-01-04 12:35 | Fluoroscopy Report ---
FL lumbar spine 2-3V CLINICAL HISTORY: L1-4 DECOMPRESSION TECHNIQUE: 1 views were obtained with the C-arm in the OR with the above procedure. Total fluoroscopy time was 12.7 seconds. Total skin dose was 8.82 mGy. Comparison: None available at the time of this dictation. FINDINGS/IMPRESSION: Multiple intraoperative images were obtained of abscess decompression at L1-L4. Please correlate with intraoperative fluoroscopy and operative report. ACT 112: Negative or not required by law. Electronically signed by: Roger Rankin M.D. 01/04/2021 12:34 PM
[2021-01-04] MEDS ORDERED: DO NOT ADMINISTER FLU VACCINE PRN (13:36)
[2021-01-04] MEDS ORDERED: LORazepam 0.5 MG TAB PO PRN (13:36)
[2021-01-04] MEDS ORDERED: METOCLOPRAMIDE HCL INJ 5 MG/ML 2 ML VIAL IV PRN (13:36)
[2021-01-04] MEDS ORDERED: LORazepam 0.5 MG/1 ML VIAL IV PRN (13:36)
[2021-01-04] MEDS ORDERED: SOD PHOSPHATE/SOD BIPHOSPHATE ENEMA 132 ML BTL PR PRN (13:36)
[2021-01-04] MEDS ORDERED: NALOXONE HCL 0.4 MG/1 ML VIAL/CARP IV PRN (13:36)
[2021-01-04] MEDS ORDERED: bisacodyL 10 MG SUPP PR PRN (13:36)
[2021-01-04] MEDS ORDERED: ALUMINUM/MAGNESIUM SUSP 30 ML UDC PO PRN (13:36)
[2021-01-04] MEDS ORDERED: MAGNESIUM HYDROXIDE SUSP 30 ML UDC PO PRN (13:36)
[2021-01-04] MEDS ORDERED: traMADol HCL 50 MG TABLET PO PRN (13:36)
[2021-01-04] MEDS ORDERED: ONDANSETRON 4 MG OD TAB PO PRN (13:36)
[2021-01-04] MEDS ORDERED: diphenhydrAMINE Capsule 25 MG CAP PO PRN (13:36)
[2021-01-04] MEDS ORDERED: hydrOXYzine HCl 25 MG TAB PO PRN (13:36)
[2021-01-04] MEDS ORDERED: FAMOTIDINE 20 MG TAB PO PRN (13:36)
[2021-01-04] MEDS ORDERED: ACETAMINOPHEN 500 MG TAB PO PRN (13:36)
[2021-01-04] MEDS ORDERED: ACETAMINOPHEN 1,000 MG/100 ML VIAL IV PRN (13:36)
[2021-01-04] MEDS ORDERED: PROMETHAZINE HCL 12.5 MG in SODIUM CHLORIDE 0.9% 50 ML IV PRN (13:36)
[2021-01-04] MEDS ORDERED: LACTATED RINGER'S 1,000 ML IV SCH (13:36)
[2021-01-04] MEDS ORDERED: DO NOT ADMINISTER PNEUMOCOCCAL VACCINE PRN (13:36)
[2021-01-04] MEDS: metroNIDAZOLE 500 MG/100 ML BAG IV SCH ×2 (15:14→22:08)
--- NOTE | 2021-01-04 16:26 | Anesthesiology Progress Note ---
Date of Service January 04, 2021 Anesthesia Post Procedure Vital Signs Vital Signs: Temp Pulse Pulse Pulse Resp BP BP 01/04/21 13:15 81 23 157/89 H 01/04/21 13:05 36.3 C L 70 14 159/87 H 01/04/21 12:55 87 17 143/97 H 01/04/21 12:45 87 19 148/100 H 01/04/21 12:35 87 24 147/88 H 01/04/21 12:25 87 23 153/93 H 01/04/21 12:15 36.4 C L 92 H 18 169/93 H 01/04/21 09:16 37.2 C 92 H 18 175/100 H 01/04/21 08:00 78 01/04/21 07:54 36.3 C L 92 H 19 134/76 01/04/21 04:54 36.3 C L 103 H 24 140/75 01/03/21 22:47 36.8 C 107 H 18 112/71 01/03/21 19:31 36.7 C 94 H 18 113/75 Pulse Ox 01/04/21 13:15 93 01/04/21 13:05 96 01/04/21 12:55 93 01/04/21 12:45 99 01/04/21 12:35 99 01/04/21 12:25 98 01/04/21 12:15 97 01/04/21 09:16 95 01/04/21 08:00 01/04/21 07:54 93 01/04/21 04:54 94 01/03/21 22:47 92 01/03/21 19:31 93 Pain Intensity Back: Pain Intensity: 2 Transfer of Care Handoff Completed per policy Notes Mental Status: alert / awake / arousable and participated in evaluation Patient Amnestic to Procedure: Yes Nausea / Vomiting: adequately controlled Pain: adequately controlled Airway Patency, RR, SpO2: stable & adequate BP & HR: stable & adequate Hydration State: stable & adequate Anesthetic Complications: no major complications apparent and Pt Satisfied with anesthetic care
[2021-01-04] MEDS: oxyCODONE HCL IR 5 MG TAB (IMMEDIATE RELEASE) PO PRN (17:20)
--- NOTE | 2021-01-04 18:34 | Billing Data ---
Date of Service January 04, 2021 Coding Level of Care Code 95272 Subseq Hosp Care Lvl 3
[2021-01-04] MEDS: DOCUSATE SODIUM/SENNA 50/8.6MG TAB PO SCH (20:16)
[2021-01-04] MEDS: LOVASTATIN 20 MG TAB PO SCH (20:16)
[2021-01-05] MEDS: HYDROmorphone INJ 1 MG/ML SYRINGE IV PRN ×3 (00:08→18:07)
[2021-01-05] MEDS: metroNIDAZOLE 500 MG/100 ML BAG IV SCH ×3 (05:56→21:49)
[2021-01-05] MEDS: POLYETHYLENE (MIRALAX) 17 GM PACK PO SCH ×3 (05:56→17:56)
[2021-01-05] MEDS: oxyCODONE HCL IR 5 MG TAB (IMMEDIATE RELEASE) PO PRN ×3 (06:15→20:04)
[2021-01-05 06:47] LABS: Basophils # (auto) 0.01 K/uL (0-0.2); Basophils % (auto) 0.1 %; Hematocrit (blood only) 29.9 % (37-47); Hemoglobin 9.4 g/dL (12.0-16.0); Immature Granulocytes # (auto) 0.27 K/uL (0.00-0.02); Immature Granulocytes % (auto) 1.9 %; Lymphocytes # (auto) 1.46 K/uL (1.2-3.4); Lymphocytes % (auto) 10.4 %; Mean Corpuscular Hemoglobin 31.1 pg (25-34); Mean Corpuscular Hgb Conc 31.4 g/dL (32-36); Mean Platelet Volume 11.1 fL (7.4-10.4); Monocytes # (auto) 1.03 K/uL (0.11-0.59); Monocytes % (auto) 7.4 %; Neutrophils # (auto) 11.24 K/uL (1.4-6.5); Neutrophils % (auto) 80.2 %; Platelet Count 209 K/uL (130-400); RDW Coefficient of Variation 13.9 % (11.5-14.5); Red Blood Count 3.02 M/uL (4.2-5.4); White Blood Count 14.01 K/uL (4.8-10.8)
[2021-01-05 07:15] LABS: BUN Creatinine Ratio 50.9 (10-20); Calcium 8.9 mg/dl (8.5-10.1); Creatinine Clr Calc Pharmacy 51.1 ml/min; Est GFR (African American) 62.4 ml/min; Est GFR (Non-African American) 53.8 ml/min; Potassium 4.8 mmol/L (3.5-5.1)
[2021-01-05] MEDS: cefTRIAXone SODIUM 2,000 MG in DEXTROSE 5% 50 ML IV SCH ×2 (08:15→21:13)
--- NOTE | 2021-01-05 10:41 | Hospitalist Progress Note ---
Date of Service January 05, 2021 Assessment & Plan (1) Epidural abscess: Plan: Epidural Abscess, L1-L4 -Most likely secondary to primary strep bacteremia per BCx -Daptomycin/Zosyn in ER, switched to Vancomycin and Rocephin, now currently on Rocephin + Flagyl -TTE negative for endocarditis -Infectious disease consult recommended d/c Vancomycin and add Flagyl 500 mg q8h to Rocephin, repeat blood cultures -BCx positive for Group B strep and Klebsiella pneumoniae -Orthopedics spine team aware- OR drainage with uncomplicated L4 decompression 01/04, POD1 and recovering well -Continue IV abx, monitoring, postop PT/OT, pt will likely need rehab after discharge (2) CKD (chronic kidney disease) stage 3, GFR 30-59 ml/min: Plan: Acute on chronic kidney disease Baseline GFR 3059, under few Baseline creatinine approximately 1.31.45 Was very mild ROZ versus prerenal azotemia on admission, now back to the high end of her baseline range. Obviously continue to follow basic metabolic panel g iven the context. -Improving, BUN/Cr currently at 50/0.99 (3) Dyslipidemia: Plan: Hyperlipidemia Continue home statin (4) Hypertension: Plan: Follow blood pressureright now in an acceptable range, hold MERVIN and diuretic given mild ROZ on admission, sepsis on admission, and likelihood of shifting volume status with surgery, infection, etc. (5) Stasis edema of right lower extremity: Plan: Likely venous stasis. (6) Status post total right knee replacement: Plan: Serial history and exam, but right now nothing appearing consistent with a septic joint (7) Wrist pain: Plan: More than likely underlying DJD with flareup using her arms more to move around when her back has been bad Plan: DVT prophylaxis: SCDs, pharmacologic prophylaxis deferred pending surgical drainage of spinal abscess Diet: Regular Dispo: PCU CODE STATUS: DNR/DNI, discussed with patient at bedside by admitting physician Admission and Anticipated Discharge Date Admission Date: January 02, 2021 Supervising Physician Co-Signing Physician Notes I personally examined the patient and verified all dennison points of history and exam, discussed case, and agree with decision making with Dr Lobo. Still having some back pain. A little bit better than yesterday. No distress. Infectious disease input appreciated vitals noted, in general no distressHEENT normocephalic atraumatic mucous membranes are moist. Breathing unlabored no accessory muscle use good effort. Skin shows no rashes no pallor or icterus. No focal neuro deficits. Vitals noted, in general she is awake and alert pleasant no distress. Does appear fatigued. HEENT normocephalic atraumatic mucous membranes moist. Breathing unlabored no accessory muscle use good effort. Skin shows no rashes no pallor or icterus. Strep bacteremia with epidural abscess/infection as a secondary finding. Transthoracic echo negative for vegetations, ID input appreciated, continue ceftriaxoneanticipated probably about 8 weeks. ok for medical Subjective Pt's back pain slightly improving after surgery yesterday, rates at 7/10 currently. Denies any fevers, chills, bowel/bladder incontinence, weakness, numbness. Wrist pain improving as well. Tolerating meals well. Was animated and upbeat today. Review of Systems Review of Systems: +Back pain Physical Exam Physical Exam: General: laying in bed, no acute distress HEENT- moist mucous membranes, no LAD Resp- CTAB, unlabored respirations CV- normal S1, S2, RRR, no murmurs appreciated Neuro- 5/5 strength of upper extremities, no sensory deficits, no focal motor deficits Skin: chronic bruises of upper extremities Results & Data Results & Data ([facility]) Vital Signs (Past 12 Hours) Vital Signs Temp Pulse Resp BP Pulse Ox 01/05/21 07:58 36.5 C 81 22 137/71 97 01/05/21 03:52 36.4 C L 91 H 18 130/76 98 01/04/21 23:48 36.3 C L 87 17 138/71 97 Resident Activity Tracking Resident Involvement: Resident Care Provided Care Provided: Adult Hospital Medicine
[2021-01-05] MEDS: HYDROmorphone INJ 0.5 MG/0.5 ML SYR IV PRN (14:13)
--- NOTE | 2021-01-05 15:42 | Orthopedic Progress Note ---
Date of Service January 05, 2021 Assessment & Plan (1) Epidural abscess: Plan: At this time encourage her to begin transfers from bed to chair as tolerated. I did describe to the patient that she did have evidence of epidural abscess and cultures are growing out strep. Will take her several weeks to months to completely recover. She understands. Admission and Anticipated Discharge Date Admission Date: January 02, 2021 Subjective Patient complaining of back pain. She denies any radicular complaints. Physical Exam Physical Exam: Patient is alert and oriented. She has reasonable plantar flexion dorsiflexion but some weakness to the quads and hip flexors. She does appear comfortable. Results & Data ([facility]) Vital Signs (Past 12 Hours) Vital Signs Temp Pulse Resp BP Pulse Ox 01/05/21 11:59 36.4 C L 104 H 20 128/72 94 01/05/21 07:58 36.5 C 81 22 137/71 97 01/05/21 03:52 36.4 C L 91 H 18 130/76 98
--- NOTE | 2021-01-05 16:25 | Billing Data ---
Date of Service January 05, 2021 Coding Level of Care Code 84445 Subseq Hosp Care Lvl 3
[2021-01-05] MEDS ORDERED: VANCOMYCIN TROUGH ONE (19:30)
[2021-01-05] MEDS: DOCUSATE SODIUM/SENNA 50/8.6MG TAB PO SCH (20:06)
[2021-01-05] MEDS: LOVASTATIN 20 MG TAB PO SCH (20:07)
[2021-01-06] MEDS: POLYETHYLENE (MIRALAX) 17 GM PACK PO SCH ×4 (00:09→18:29)
[2021-01-06] MEDS ORDERED: VANCOMYCIN TROUGH ONE (01:30)
[2021-01-06] MEDS: oxyCODONE HCL IR 5 MG TAB (IMMEDIATE RELEASE) PO PRN ×3 (03:25→18:29)
[2021-01-06] MEDS: metroNIDAZOLE 500 MG/100 ML BAG IV SCH (05:38)
[2021-01-06] MEDS: HYDROmorphone INJ 1 MG/ML SYRINGE IV PRN (05:39)
[2021-01-06 06:19] LABS: Basophils # (auto) 0.01 K/uL (0-0.2); Basophils % (auto) 0.1 %; Eosinophils # (auto) 0.01 K/uL (0-0.5); Eosinophils % (auto) 0.1 %; Hematocrit (blood only) 29.9 % (37-47); Hemoglobin 9.5 g/dL (12.0-16.0); Immature Granulocytes # (auto) 0.52 K/uL (0.00-0.02); Immature Granulocytes % (auto) 3.9 %; Lymphocytes # (auto) 1.37 K/uL (1.2-3.4); Lymphocytes % (auto) 10.3 %; Mean Corpuscular Hemoglobin 31.4 pg (25-34); Mean Corpuscular Hgb Conc 31.8 g/dL (32-36); Mean Corpuscular Volume 98.7 fL (80-100); Mean Platelet Volume 10.7 fL (7.4-10.4); Monocytes # (auto) 1.18 K/uL (0.11-0.59); Monocytes % (auto) 8.9 %; Neutrophils # (auto) 10.18 K/uL (1.4-6.5); Neutrophils % (auto) 76.7 %; Platelet Count 198 K/uL (130-400); RDW Coefficient of Variation 13.8 % (11.5-14.5); RDW Standard Deviation 49.4 fL (36.4-46.3); Red Blood Count 3.03 M/uL (4.2-5.4); White Blood Count 13.27 K/uL (4.8-10.8)
[2021-01-06 06:49] LABS: BUN Creatinine Ratio 46.3 (10-20); Calcium 8.8 mg/dl (8.5-10.1); Creatinine Clr Calc Pharmacy 55.6 ml/min; Est GFR (African American) 69.1 ml/min; Est GFR (Non-African American) 59.6 ml/min; Potassium 4.1 mmol/L (3.5-5.1)
[2021-01-06] MEDS: cefTRIAXone SODIUM 2,000 MG in DEXTROSE 5% 50 ML IV SCH ×2 (08:08→20:23)
--- NOTE | 2021-01-06 09:52 | Hospitalist Progress Note ---
Date of Service January 06, 2021 Assessment & Plan (1) Epidural abscess: Plan: Epidural Abscess, L1-L4 -Most likely secondary to primary strep bacteremia per BCx -Daptomycin/Zosyn in ER, switched to Vancomycin and Rocephin, now currently on Rocephin + Flagyl -TTE negative for endocarditis -Infectious disease consult recommended d/c Vancomycin and add Flagyl 500 mg q8h to Rocephin, repeat blood cultures -BCx positive for Group B strep and Klebsiella pneumoniae -Orthopedics spine team aware- OR drainage with uncomplicated L4 decompression 01/04, POD2 and recovering well -Continue IV abx, monitoring, postop PT/OT, pt will likely need rehab after discharge -Pain control- scheduled Tylenol, toradol PRN and oxycodone PRN for moderate pain, Dilaudid PRN for severe pain (2) CKD (chronic kidney disease) stage 3, GFR 30-59 ml/min: Plan: Acute on chronic kidney disease Baseline GFR 3059, under few Baseline creatinine approximately 1.31.45 Was very mild ROZ versus prerenal azotemia on admission, now back to the high end of her baseline range. Obviously continue to follow basic metabolic panel given the context. -Improving, BUN/Cr currently at 42/0.91 (3) Dyslipidemia: Plan: Hyperlipidemia Continue home statin (4) Hypertension: Plan: Follow blood pressureright now in an acceptable range, hold MERVIN and diuretic given mild ROZ on admission, sepsis on admission, and likelihood of shifting volume status with surgery, infection, etc. (5) Stasis edema of right lower extremity: Plan: Likely venous stasis. (6) Status post total right knee replacement: Plan: Serial history and exam, but right now nothing appearing consistent with a septic joint (7) Wrist pain: Plan: More than likely underlying DJD with flareup using her arms more to move around when her back has been bad Plan: DVT prophylaxis: SCDs, pharmacologic prophylaxis deferred pending surgical drainage of spinal abscess Diet: Regular Dispo: PCU CODE STATUS: DNR/DNI, discussed with patient at bedside by admitting physician Admission and Anticipated Discharge Date Admission Date: January 02, 2021 Supervising Physician Co-Signing Physician Notes I personally examined the patient and verified all dennison points of history and exam, discussed case, and agree with decision making with Dr Ahmad. Back pain fairly severegetting in the way of being able to move/do therapy. Patient seen at the bedside at the same time as orthopedic surgery, input greatly appreciated. in general no distress at rest, but she notes very clearly that anytime she goes to move she is in significant pain. normocephalic atraumatic mucous membranes are moist. Breathing unlabored no accessory muscle use good effort. Skin shows no rashes no pallor or icterus. No focal neuro deficits. Strep bacteremia with epidural abscess/infection as a secondary finding. Transthoracic echo negative for vegetations, ID input appreciated, continue ceftriaxoneanticipated probably about 8 weeks. For now need to escalate pain control to allow her to better do therapyshe appreciates thiswe discussed risk/benefits, noting that pain medication escalation could increase risk of delirium, but she notes she is more than willing to absorb this risk given how severe the pain is, and the fact that it's getting away with any part of her rehab goals. Anticipate a very slow road for her. Goal will be rehab. Subjective Complaining of back pain 10/17 today, requesting pain relief. Denies any fevers, chills, bowel/bladder incontinence, weakness, numbness. Review of Systems Review of Systems: +Back pain Physical Exam Physical Exam: General: laying in bed, no acute distress HEENT- moist mucous membranes, no LAD Resp- CTAB, unlabored respirations CV- normal S1, S2, RRR, no murmurs appreciated Neuro- 5/5 strength of upper extremities, no sensory deficits, no focal motor deficits Skin: chronic bruises and edema of upper extremities, edematous lower extremities Results & Data Results & Data ([facility]) Vital Signs (Past 12 Hours) Vital Signs Temp Pulse Resp BP BP Pulse Ox 01/06/21 07:39 183/93 H 01/06/21 07:37 36.4 C L 66 18 155/110 H 96 01/05/21 22:17 36.4 C L 82 18 143/78 H 98 Resident Activity Tracking Resident Involvement: Resident Care Provided Care Provided: Adult Hospital Medicine
--- NOTE | 2021-01-06 12:07 | Orthopedic Progress Note ---
Date of Service January 06, 2021 Assessment & Plan (1) Epidural abscess: Plan: This time I am hoping that she can begin transfers from bed to chair. Would like to initiate the beginnings of ambulation if she is able to tolerate this. Do suspect it may be a few weeks before she becomes more mobile. Ultimately should be a candidate for rehab. Admission and Anticipated Discharge Date Admission Date: January 02, 2021 Subjective Patient complaining predominantly of back pain. She states she is able to stand for a few seconds earlier today. She denies any radicular complaints at this time. Physical Exam Physical Exam: Patient is alert and oriented. She demonstrates was a strength testing lower extremities. Results & Data ([facility]) Vital Signs (Past 12 Hours) Vital Signs Temp Pulse Resp BP Pulse Ox 01/06/21 07:39 183/93 H 01/06/21 07:37 36.4 C L 66 18 155/110 H 96
[2021-01-06] MEDS ORDERED: oxyCODONE HCL IR 5 MG TAB (IMMEDIATE RELEASE) PO PRN (12:12)
[2021-01-06] MEDS ORDERED: KETOROLAC TROMETHAMINE 15 MG/ML VIAL IV PRN (12:12)
[2021-01-06] MEDS ORDERED: metroNIDAZOLE 500 MG/100 ML BAG IV SCH (12:30)
[2021-01-06] MEDS: ACETAMINOPHEN 500 MG TAB PO SCH ×2 (13:06→18:29)
--- NOTE | 2021-01-06 18:26 | Billing Data ---
Date of Service January 06, 2021 Coding Level of Care Code 80730 Subseq Hosp Care Lvl 3
[2021-01-06] MEDS: LOVASTATIN 20 MG TAB PO SCH (20:23)
[2021-01-06] MEDS: GABAPENTIN 300 MG CAP PO SCH (20:23)
[2021-01-06] MEDS: DOCUSATE SODIUM/SENNA 50/8.6MG TAB PO SCH (20:31)
[2021-01-07] MEDS: ACETAMINOPHEN 500 MG TAB PO SCH ×4 (00:35→21:19)
[2021-01-07] MEDS: POLYETHYLENE (MIRALAX) 17 GM PACK PO SCH ×2 (00:35→05:44)
[2021-01-07 05:56] LABS: Hematocrit (blood only) 30.1 % (37-47); Hemoglobin 9.6 g/dL (12.0-16.0); Mean Corpuscular Hemoglobin 31.6 pg (25-34); Mean Corpuscular Hgb Conc 31.9 g/dL (32-36); Mean Platelet Volume 11.3 fL (7.4-10.4); Platelet Count 195 K/uL (130-400); RDW Coefficient of Variation 13.9 % (11.5-14.5); RDW Standard Deviation 49.9 fL (36.4-46.3); Red Blood Count 3.04 M/uL (4.2-5.4)
[2021-01-07 06:25] LABS: BUN Creatinine Ratio 40.9 (10-20); Calcium 8.7 mg/dl (8.5-10.1); Creatinine Clr Calc Pharmacy 45.2 ml/min; Est GFR (African American) 53.7 ml/min; Est GFR (Non-African American) 46.4 ml/min; Potassium 4.4 mmol/L (3.5-5.1)
[2021-01-07] MEDS: cefTRIAXone SODIUM 2,000 MG in DEXTROSE 5% 50 ML IV SCH ×2 (08:57→21:19)
--- NOTE | 2021-01-07 12:16 | Hospitalist Progress Note ---
Date of Service January 07, 2021 Assessment & Plan (1) Epidural abscess: Plan: Epidural Abscess, L1-L4 -Most likely secondary to primary strep bacteremia per BCx -Daptomycin/Zosyn in ER, switched to Vancomycin and Rocephin -TTE negative for endocarditis -Infectious disease consult recommended d/c Vancomycin and add Flagyl 500 mg q8h to Rocephin, repeat blood cultures -BCx positive for Group B strep and Klebsiella pneumoniae, Flagyl discontinued yesterday -Orthopedics OR drainage with uncomplicated L4 decompression 01/04, POD3 and recovering well -Continue Rocephin, monitoring, postop PT/OT, pt will likely need rehab after discharge -Pain control- scheduled Tylenol, toradol PRN and oxycodone PRN for moderate pain, Dilaudid PRN for severe pain (2) CKD (chronic kidney disease) stage 3, GFR 30-59 ml/min: Plan: Acute on chronic kidney disease Baseline GFR 3059, under few Baseline creatinine approximately 1.31.45 Was very mild ROZ versus prerenal azotemia on admission, now back to the high end of her baseline range. Obviously continue to follow basic metabolic panel given the context. -Improving, Cr 0.91 to 1.12 today, possibly due to Toradol dose yesterday (3) Dyslipidemia: Plan: Hyperlipidemia Continue home statin (4) Hypertension: Plan: Follow blood pressureright now in an acceptable range, hold MERVIN and diuretic given mild ROZ on admission, sepsis on admission, and likelihood of shifting volume status with surgery, infection, etc. (5) Stasis edema of right lower extremity: Plan: Likely venous stasis + chronic lymphedema (6) Status post total right knee replacement: Plan: Serial history and exam, but right now nothing appearing consistent with a septic joint (7) Wrist pain: Plan: More than likely underlying DJD with flareup using her arms more to move around when her back has been bad Plan: DVT prophylaxis: SCDs Diet: Regular Dispo: most likely to rehab CODE STATUS: DNR/DNI, discussed with patient at bedside by admitting physician Admission and Anticipated Discharge Date Admission Date: January 02, 2021 Supervising Physician Co-Signing Physician Notes I personally examined the patient and verified all dennison points of history and exam, discussed case, and agree with decision making with Dr Lobo. Back pain still present, but definitely improved, has not yet worked with therapy today, so she is not sure how will be with exertion, but seems to be a bit better. Discussed yet again the "big picture" of her overall course of care/treatment/rehab. In general no distress at rest. normocephalic atraumatic mucous membranes are moist. Breathing unlabored no accessory muscle use good effort. Skin shows no rashes no pallor or icterus. No focal neuro deficits. Strep bacteremia with epidural abscess/infection as a secondary finding. Transthoracic echo negative for vegetations, ID input appreciated, continue ceftriaxoneanticipated probably about 8 weeks. pain control doing better and fortunately not much of any notable delirium from pain meds at this time. continue current course. Anticipate a very slow road for her. next step goal will be rehab. Subjective Still complaining of back pain but slightly better than yesterday. Denies any fevers, chills, bowel/bladder incontinence, weakness, numbness. Review of Systems Review of Systems: +Back pain Physical Exam Physical Exam: General: laying in bed, no acute distress HEENT- moist mucous membranes, no LAD Resp- CTAB, unlabored respirations CV- normal S1, S2, RRR, no murmurs appreciated Neuro- 5/5 strength of upper extremities, no sensory deficits, no focal motor deficits Skin: chronic bruises and edema of upper extremities, edematous lower extremities Results & Data Results & Data ([facility]) Vital Signs (Past 12 Hours) Vital Signs Temp Pulse Resp BP Pulse Ox 01/07/21 07:31 36.2 C L 90 16 157/94 H 97 Resident Activity Tracking Resident Involvement: Resident Care Provided Care Provided: Adult Hospital Medicine
[2021-01-07] MEDS: oxyCODONE HCL IR 5 MG TAB (IMMEDIATE RELEASE) PO PRN ×2 (12:59→21:17)
--- NOTE | 2021-01-07 16:05 | Billing Data ---
Date of Service January 07, 2021 Coding Level of Care Code 75337 Subseq Hosp Care Lvl 3
[2021-01-07] MEDS: LOVASTATIN 20 MG TAB PO SCH (21:18)
[2021-01-07] MEDS: GABAPENTIN 300 MG CAP PO SCH (21:18)
[2021-01-07] MEDS: DOCUSATE SODIUM/SENNA 50/8.6MG TAB PO SCH (21:26)
[2021-01-08] MEDS: ACETAMINOPHEN 500 MG TAB PO SCH ×2 (05:10→14:21)
[2021-01-08 06:26] LABS: Hematocrit (blood only) 31.8 % (37-47); Hemoglobin 10.1 g/dL (12.0-16.0); Mean Corpuscular Hemoglobin 31.5 pg (25-34); Mean Corpuscular Hgb Conc 31.8 g/dL (32-36); Mean Corpuscular Volume 99.1 fL (80-100); Mean Platelet Volume 11.6 fL (7.4-10.4); Platelet Count 216 K/uL (130-400); RDW Standard Deviation 50.3 fL (36.4-46.3); Red Blood Count 3.21 M/uL (4.2-5.4); White Blood Count 14.09 K/uL (4.8-10.8)
[2021-01-08 06:52] LABS: Calcium 8.6 mg/dl (8.5-10.1); Creatinine Clr Calc Pharmacy 58.8 ml/min; Est GFR (African American) 73.9 ml/min; Est GFR (Non-African American) 63.8 ml/min; Potassium 4.2 mmol/L (3.5-5.1)
[2021-01-08] MEDS: cefTRIAXone SODIUM 2,000 MG in DEXTROSE 5% 50 ML IV SCH (08:57)
[2021-01-08] MEDS ORDERED: ENALAPRIL MALEATE 10 MG TAB PO SCH (09:30)
[2021-01-08] MEDS: oxyCODONE HCL IR 5 MG TAB (IMMEDIATE RELEASE) PO PRN ×2 (09:56→14:22)
[2021-01-08] MEDS ORDERED: TRIAMTERENE/HCTZ 37.5/25MG CAP PO SCH (10:30)
--- NOTE | 2021-01-08 12:46 | Orthopedic Progress Note ---
Date of Service January 08, 2021 Assessment & Plan (1) Epidural abscess: Plan: This time we will continue to encourage therapy as tolerated. She is a candidate for rehab and will be going there soon. Admission and Anticipated Discharge Date Admission Date: January 02, 2021 Subjective Patient states her back pain is improving. She denies any leg pain. Physical Exam Physical Exam: Patient is in bed. She has Results & Data ([facility]) Vital Signs (Past 12 Hours) Vital Signs Temp Pulse Pulse Resp BP BP BP 01/08/21 12:28 36.7 C 88 91 H 16 157/94 H 158/84 H 157/81 H 01/08/21 12:03 158/84 H 01/08/21 08:00 36.7 C 91 H 16 183/112 H 01/08/21 07:45 158/84 H Pulse Ox 01/08/21 12:28 96 01/08/21 12:03 01/08/21 08:00 96 01/08/21 07:45
--- NOTE | 2021-01-08 13:55 | Discharge Summary ---
Date of Service January 08, 2021 Admission HPI Per Admitting Provider Aline is an 80-year-old female with a past medical history of lumbar spondylosis, CKD, parotid neoplasm s/p parotidectomy, nicotine dependence, hypertension, osteoarthritis, dyslipidemia, diverticulosis who presented with worsening low back pain for 10 to 14 days with associated weakness, poor appetite, and global fatigue. Patient had failed to improve with tramadol/prednisone/Percocet. She is found to have a L1-L3 epidural abscess on imaging which was discussed with spinal surgery, was recommended for dmission and further management. Was not recommended for transfer by spinal surgery. 2 weeks ago had a fall from a chair 2/2 weakness and fatigue with pain at her R knee which was previuosly replaced. Talked to Ortho Dr. Hernandez and was seen by the PA and had imaging of the knee and back. XR at that time looked OK of the knee, and noted arthritis in the low back. Was given tramadol/prednisone which did not help her pain. Back pain gradually increased and was seen in the ER on Friday (2 days ago) and was given an IV pain medication which helped fo ra little while and was given prednisone/percocet. Did not fill the prednisone/percocet Friday because pharmacy was closed, took yesterday including the pain medicine and felt her pain was still terrible, and she had bilateral lower leg weakness and couldn't get up to bed. Called 911 who helped her to bed, but couldn't get out of bed and prsented to the ER via EMS for persistent and worsened LE weakness. R very weak, L leg 'ok can't do all the work.' Also has bilateral wrist pain from leaning heavily on her walker in the last week. No change in R lymphedema. Has been peeing and voiding normally. Last BM 2 days ago. No nausea, but has not been very hungry. Intermittently cold in the AM, otherwise denies fevers chills. Arms bilat w/ have some bruises/discoloration 'from old age, always like that. I have thin skin' No numbness/tingling in the feed, denies saddle neuropathy Medical History: Reviewed. Medications: Reviewed Surgical History: Reviewed Allergies: Reviewed Social History: Former smoker, quit 5 years ago. Smoked for many decades 1ppd- 2ppw. Denies alcohol use and recreational drug use. Code Status:DNR/DNI ,confirmed with pt at bedside Admission Exam Per Admitting Provider General: A&Ox3. NAD. Cooperative. HEENT: Atraumatic, normocephalic. Visual acuity grossly intact, hearing grossly intact. Pulm: CTAB A&P. -wheezes, -rales, -rhonchi. Symmetrical chest rise. No increase work of breathing. No respiratory distress. Cardiac: Tachycardic, -mrg. Radial pulses intact and symmetrical. Abdominal: Nontender, nondistended, soft. BS present. CRANIAL NERVES: II: Pupils equal and reactive, no relative afferent pupillary defect, no VF cuts III, IV, : EOM intact, no gaze preference or deviation, no nystagmus. V: normal sensation in V1, V2, and V3 segments bilaterally VII: no asymmetry, no nasolabial fold flattening VIII: normal hearing to speech IX, X: normal palatal elevation, no uvular deviation XI: 5/5 head turn and 5/5 shoulder shrug bilaterally XII: midline tongue protrusion UA: Bilateral distal arm contusions, no crepitus, nontender to palpation. Radial pulses intact and symmetrical. Mild bilateral resting tremor persistent on intention. RUE: 5/5 Shoulder internal rotation, external rotation, flexion, extension, abduct ion, adduction 5/5 Elbow flexion/extension, wrist flexion/extension 5/5 resident care technician strength, finger flexion/extension, interosseus LUE: 5/5 Shoulder internal rotation, external rotation, flexion, extension, abduction, adduction 5/5 Elbow flexion/extension, wrist flexion/extension 5/5 resident care technician strength, finger flexion/extension, interosseus RLE: Hip flexion, ankle plantar flexion limited by pain at back. Ankle dorsiflexion 5/5 LLE: 5/5 to hip flexion/extension, knee flexion/extension, ankle dorsiflexion/plantarflexion REFLEXES: 2/4 patellar, no clonus SENSORY: Normal to touch temp in upper and lower extremities without deficit or asymmetry Principal Diagnosis Strep bacteremia with epidural abscess Discharge Exam General: laying in bed, no acute distress HEENT- moist mucous membranes, no LAD Resp- CTAB, unlabored respirations CV- normal S1, S2, RRR, no murmurs appreciated Neuro- 5/5 strength of upper extremities, no sensory deficits, no focal motor deficits Skin: dark discoloration and edema of b/l distal upper extremities, mild swelling and superficial ulceration of L forearm, wound dressing with serosanguinous fluid soaking through, +1 peripheral edema of RLE Discharge Data Allergies Allergy/AdvReac Type Severity Reaction Status Date / Time No Known Allergies Allergy Mild Verified 01/01/21 08:23 Consultations 01/02/21 17:23 ED Decision to Admit Stat 01/02/21 19:41 Consult Orthopedic Surgery Routine 01/04/21 07:55 Consult Infectious Diseases Routine Procedures Performed Operation Date: 01/04/21 09:35 Actual Procedures p L1-L4 Decompression(Not Applicable) - Gautam Crook, Ordered Studies 01/02/21 08:49 CT head/brain wo con Stat CT lumbar spine wo con Stat 01/02/21 10:17 MR lumbar spine wo/w con Stat 01/04/21 09:35 FL spine 1V any level Routine Hospital Course (1) Epidural abscess: Hospitalized 01/02 and discharged 01/08 to acute rehab at [facility] Epidural Abscess, L1-L4 -Confirmed on MRI lumbar spine -Most likely secondary to primary strep bacteremia per positive BCx -Daptomycin/Zosyn in ER, switched to Vancomycin and Rocephin. ID consult recommended d/c Vancomycin and addition of Flagyl to Rocephin. Flagyl discontinued after BCx grew Klebsiella -TTE negative for endocarditis -Orthopedics OR drainage with uncomplicated L4 decompression 01/[address] Crook, discharged to rehab on POD4 and recovering gradually -Rocephin 2 g q24h to be continued at rehab, PICC line consented and placed today -Back pain 7/10 by day of discharge, still persistent but gradual improvement noted over past few days in regard to physical activity tolerance and pain severity -Pt to follow up with orthopedic surgeon Dr. Crook for post-op check Peripheral edema -Noted edematous b/l upper extremities over past few days with dark discoloration, most likely hydrostatic due to being off diuretic, multiple IV draws. Skin of L forearm burst early in AM 11/1 while pt having BP checked by lópez rebolledo via cuff, drained foul-smelling serosanguinous fluid without purulence -Superficial wound without ulceration continuing to drain mostly serous fluid. No associated pain, fever, swelling or warmth -Applied vaseline gauze dressing, wound care nurse consulted. -Continue wound care at rehab, expected to have uncomplicated resolution. Edema expected to improve with resuming home BP meds including diuretic. (2) CKD (chronic kidney disease) stage 3, GFR 30-59 ml/min: Acute on chronic kidney disease Baseline GFR 3059, under few Baseline creatinine approximately 1.31.45 Was very mild ROZ versus prerenal azotemia on admission, Cr down to 0.86 by day of discharge following fluid repletion (3) Dyslipidemia: Hyperlipidemia Continued home statin (4) Hypertension: -Home BP meds enalapril and triamterene-HCTZ held on admission due to ROZ -BPs generally stable and wthin range during stay with some minor elevations likely due to pain -Home meds restarted on 01/08, BPs stable 150s/80s since -Peripheral edema of b/l upper extremities expected to improve with diuresis (5) Stasis edema of right lower extremity: Likely venous stasis + chronic lymphedema (6) Status post total right knee replacement: -Low suspicion for septic joint (7) Wrist pain: More than likely underlying DJD with flareup using her arms more to move around when her back has been bad Total Time Total Time Spent Total Time Spent (In Minutes): 20 Discharge Plan Discharge Items Patient Disposition: Transfer Inpatient Rehab Fac Reason For Visit: EPIDURAL ABSCESS Discharge Diagnosis: Strep bacteremia with epidural abscess Activity: Per Instructions section Non-emergency contact: Primary Care Provider Call non-emergency contact if: you have any medication questions, your symptoms worsen, your pain is worsening and you have a fever Follow-up/Referrals: Ayesha Agrawal MD [Primary Care Provider] - Gautam Crook DO [Surgeon] - Diet: Regular Addtl Attending Provider Instructions: You were admitted to the hospital for an epidural abscess, meaning a bacterial infection with infected fluid in your back. You were treated with IV antibiotics followed by orthopedic surgery to help drain the abscess. Because the bacteria not only got into your bloodstream but also managed to infect your spine, you will need to continue antibiotics for an extended period over the next 8 weeks. The antibiotics will be delivered intravenously through an IV line called a PICC (peripherally inserted central catheter) that will be placed today. This will help clear the remainder of the infection as you gradually regain your strength, mobility and conditioning at [facility]. The swelling in your arms should improve as we resume your diuretic home med ication. The ulceration that was caused by the blood pressure cuff over your swollen arm should also gradually improve with time. It will likely resolve on its own as it remains in the wound dressings. Wound care will also see you to ensure proper management of the injury. A discharge summary will be sent to your primary care physician to ensure continuity of care. Please bring this discharge summary with you to your next office appointment so that your provider can review it at that time. Follow-up appointments: You will need to follow up with your PCP as well as orthopedic surgeon Dr. Tello salamanca who performed your surgery. Dr. Crook's contact information is . Please call this number at your earliest convenience and ask when Dr. Crook would like you to follow up to have your appointment scheduled. If you don't hear from Dr. Crook's office by January 17, inform the nursing team at [facility]. Medications: Your medication list has been reviewed and reconciled upon discharge to ensure accuracy and continuity of care. An updated list of all your medications is included with your hospital discharge paperwork. Please review this list closely, and make note of any changes. You will receive Rocephin/Ceftriaxone 2 g every 24 hours for 8 weeks continuing from your antibiotics start date of 01/04. Take your medications as instructed; do not skip a dose of your medicines. Make sure all of your doctors know every medicine you are taking (including nmcg-vfm-xknfqih medicines, vitamins, and supplements). Call your primary care provider before taking any new medicines (including fneb-zii-vxffnil medicines, vitamins, and supplements), because some of these may interact with your current medications, or may make your symptoms worse. Tell your [facility] hospital care provider if you cannot afford your medications. CONTACT YOUR PRIMARY CARE PROVIDER if you experience any of the following: Severe back pain Fever Continued weakness Continued numbness Inability to control your bowel movements or urination Difficulty following your treatment plan, or difficulty taking medications CALL 911 OR GO TO THE EMERGENCY DEPARTMENT if you experience any of the following: Sudden, severe abdominal pain or nausea/vomiting Severe chest pain, or chest pain that radiates (moves) to your jaw or arm Sudden, severe shortness of breath or difficulty breathing Thank you for allowing us to participate in your care. Pending Studies at Discharge: No Stand-Alone Forms: My [facility] Skilled Items Patient informed of condition?: Yes DNR: Yes Discharge Level of Care: Acute rehab Communicable Disease: No Discharge Prognosis: Stable Lines: PICC Urinary Catheter: No Medications and DC Order Prescriptions: Continued lovastatin 20 mg tablet 20 mg PO QPM Qty: 90 RF: 3 triamterene-hydrochlorothiazid [Maxzide-25mg] 37.5-25 mg tablet 1 tab PO QAM Qty: 90 RF: 3 tramadol 50 mg tablet 50 mg PO Q6H PRN (Reason: pain) Qty: 10 RF: 0 oxycodone-acetaminophen [Percocet] 5-325 mg tablet 1 tab PO Q12 PRN (Reason: pain) Qty: 20 RF: 0 enalapril maleate [Vasotec] 10 mg tablet 0 mg PO UD RF: 0 Discharge Orders: Discharge Order (Routine); Ordered 01/08/21 Ordered By: Gray Lobo Admission Data Admit Date/Time: 01/02/21 16:42 Attending Provider: Noble Taylor Admit Provider: Gautam Crook Primary Care Provider: Ayesha Agrawal V. Other Providers: [facility] ; Hardeep Rouse ; Gautam Crook ; Petros Wright ; Felton Galvez ; Cesario Hernandez I. ; Elias Nieves II ; Lizeth Jimenez ; Fili Cronin ; Magno Mccracken Other Interventions: Discharge Summary Assessment (RN) Last Done: 01/08/21 12:28 Supervising Physician Co-Signing Physician Notes Patient seen and examined with PGY-1 Dr. Lobo. Agree with history, exam findings, assessment and plan of care as outlined. In brief, Ms Nieves is an 80 year old female with hx of CKD, dyslipidemia, HTN, venous stasis/lymphedema admitted with bacteremia secondary to an epidural abscess. Today, she has noticed some increased swelling in her upper extremities. The skin is sloughing and there is some clear fluid leaking from the right upper extremity. She denies pain. She continues to have some back pain but is otherwise well. Vital signs and nursing notes were reviewed. She has bullae overlying the bilateral upper extremities over the dorsal forearm and hands. On the right arm, there is a small skin tear and there is clear, serous fluid. There is no erythema. It is minimally tender. Labs and imaging reviewed 1. Epidural abscess, L1-4. Rocephin. Blood cultures growing out Group B strep and Klebsiella. Abscess drained on 01/04. She will need a total weeks of ceftriaxone. A PICC line was placed today. 2. Bacteremia. Blood cultures and antibiotics as above. Ceftriaxone x 8 weeks. 3. ROZ on CKD. Baseline Cr 1.3-1.4. Back to baseline at this point. Likely prerenal in nature. 4. HTN. Restart home blood pressure medications today. 5. Upper extremity edema with bullae. Suspect that this may be because we are holding her diuretic. We will restart this today. I do not believe that this should hold up her discharge at this time. Appreciate wound care recommendations for rehab. Dispo: After PICC is placed, we will discharge her to [facility] for acute rehab. I personally spent 35 minutes discharge planning for this patient. Resident Activity Tracking Resident Involvement: Resident Care Provided Care Provided: Adult Hospital Medicine
== END 2021-01-08 16:02 | DRG 853 ==
LOC: ED 08:08 → 2S 16:42 → SUATTDRO 16:42 → 2S 18:27 → 3N 01-05 15:36

== ENCOUNTER 2021-02-07 06:59 | Inpatient (IN) ==
[2021-02-07] MEDS ORDERED: SODIUM CHLORIDE 0.9% 250 ML IV PRN (07:11)
[2021-02-07] MEDS ORDERED: FAMOTIDINE 20MG IV PUSH 20 MG/5 ML SYR IV STA (07:11)
[2021-02-07] MEDS ORDERED: PANTOprazole 80 MG in DEXTROSE 5% 100 ML IV ONE (07:11)
[2021-02-07] MEDS ORDERED: SODIUM CHLORIDE 0.9% 1000ML 1,000 ML IV SCH (07:15)
[2021-02-07 07:47] LABS: Hematocrit (blood only) 24.5 % (37-47); Hemoglobin 7.7 g/dL (12.0-16.0); Mean Corpuscular Hemoglobin 30.3 pg (25-34); Mean Corpuscular Hgb Conc 31.4 g/dL (32-36); Mean Corpuscular Volume 96.5 fL (80-100); Mean Platelet Volume 10.5 fL (7.4-10.4); Platelet Count 244 K/uL (130-400); RDW Coefficient of Variation 14.8 % (11.5-14.5); RDW Standard Deviation 52.4 fL (36.4-46.3); Red Blood Count 2.54 M/uL (4.2-5.4); White Blood Count 16.87 K/uL (4.8-10.8)
[2021-02-07 08:01] LABS: INR 1.3 (0.9-1.1); Partial Thromboplastin Ratio 1.1; Partial Thromboplastin Time 29.3 Seconds (21.0-31.0); Prothrombin Time 13.2 Seconds (9.0-12.0)
[2021-02-07 08:03] LABS: Alanine Aminotransferase 21 U/L (12-78); Albumin Level 1.2 gm/dl (3.4-5.0); Aspartate Aminotransferase 36 U/L (15-37); BUN Creatinine Ratio 26.4 (10-20); Blood Urea Nitrogen 31 mg/dl (7-18); Calcium 7.5 mg/dl (8.5-10.1); Carbon Dioxide 21 mmol/L (21-32); Chloride 108 mmol/L (98-107); Creatinine Clr Calc Pharmacy 43.6 ml/min; Est GFR (African American) 50.4 ml/min; Est GFR (Non-African American) 43.5 ml/min; Glucose 123 mg/dl (70-99); Potassium 4.7 mmol/L (3.5-5.1); Sodium 138 mmol/L (136-145)
--- NOTE | 2021-02-07 08:03 | Emergency Department Note ---
History of Present Illness General Chief complaint: Rectal Bleed Stated complaint: RECTAL BLEED, HYPOTENSION Time Seen by Provider: 02/07/21 07:11 History of Present Illness Maximum Pain Intensity: 5 80-year-old female presents to the ED with a chief complaint of rectal bleeding and low blood pressure. The patient is currently at [facility] undergoing rehab post back surgery and is currently on IV antibiotics related to a superficial sternal infection in the back. The patient was noticed to have rectal bleeding starting at 4:15 AM today. She has had a low blood pressure since that time. The patient otherwise states that she feels fatigued and tired. Denies any chest pains or shortness of breath. No additional complaints at this time. The best blood pressure that EMS had was 70 systolic. Home Medications Medication Instructions Recorded Confirmed Type triamterene 37.5 1 tab PO QAM #90 tab 03/30/20 02/07/21 Rx mg-hydrochlorothiazide 25 mg tablet (Maxzide-25mg) atorvastatin 10 mg tablet 10 mg PO HS 02/07/21 02/07/21 History diclofenac sodium 1 % topical gel 4 g TOPICAL QID 02/07/21 02/07/21 History enoxaparin 40 mg/0.4 mL 40 mg SUBCUT DAILY 02/07/21 02/07/21 History subcutaneous syringe gabapentin 100 mg capsule 200 mg PO BID 02/07/21 02/07/21 History lidocaine 5 % topical patch 2 patch TOPICAL QAM 02/07/21 02/07/21 History (Lidoderm) lisinopril 10 mg tablet 10 mg PO BID 02/07/21 02/07/21 History oxycodone 5 mg tablet 5 mg PO Q4H PRN 02/07/21 02/07/21 History Allergies Allergy/AdvReac Type Severity Reaction Status Date / Time No Known Allergies Allergy Mild Verified 02/07/21 08:15 Past Med/Surg History Medical History Acquired lymphedema RLE, wears compression stocking 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 LAST SURGERY 2010> FOLLOWS DR. OWEN CHAVEZ IN [place] Chronic low back pain Chronic toe pain, right foot Cold intolerance Diverticulosis of colon Dyslipidemia Encounter for pre-operative examination Generalized osteoarthritis of multiple sites History of nicotine dependence Hypertension Menopause Osteoarthritis Right knee DJD Stasis edema of right lower extremity CHRONIC Surgical History H/O parotidectomy History of colonoscopy Hx of bilateral cataract extraction Hx of surgical procedure X4 TO [place] AREA FOR CANCER S/P cholecystectomy Family History Father Hypertension Diabetes Hyperlipidemia Mother Hypertension Social History Smoking Status: Former smoker Second Hand Exposure: No; Hx Alcohol Use: No Hx Substance Use: No Preferred Language: Bulgarian Communication Ability: Effective Hearing Ability: Normal 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 Beliefs That Will Affect Care: None Current Living Situation: Alone current occupational status: retired How many Children do You have: 0 Feels Safe at Home: Yes Childhood Exposure to Second-Hand Smoke: No Dental Care, Regularly: Yes Physical Activity Frequency: 3-4 Times per Week Seatbelt Use: always Sunscreen Use: Yes Assistive Devices: Walker Review of Systems A total of 10 systems reviewed and were otherwise negative Physical Exam Vital Signs Vital Signs - 24 hr 02/07/21 07:40 02/07/21 07:55 02/07/21 08:00 Temperature 36.9 C Temperature Source Oral Pulse Rate 124 H 124 H 101 H Pulse Rate from SpO2 Sensor 101 H Pulse Rhythm Regular Pulse Strength Normal Respiratory Rate 22 20 21 Respiratory Effort / Characteristics Non-Labored Spontaneous Respiratory Depth Normal Respiratory Pattern Regular Blood Pressure 51/44 L 85/54 L 85/62 L Blood Pressure Mean 46 64 69 Blood Pressure Position Lying Pulse Oximetry 94 Oxygen Delivery Method Nasal Cannula Oxygen Flow Rate 2 Sepsis Recent Fever Within 48 Hours No Sepsis New/Unexplained Change in Mental Status N/A Sepsis Action Taken by Nursing Physician Notified 02/07/21 08:30 02/07/21 08:45 02/07/21 09:00 Temperature Temperature Source Pulse Rate 108 H 106 H 96 H Pulse Rate from SpO2 Sensor 103 H Pulse Rhythm Pulse Strength Respiratory Rate 23 19 29 H Respiratory Effort / Characteristics Respiratory Depth Respiratory Pattern Blood Pressure 103/47 L 88/56 L 93/58 L Blood Pressure Mean 65 66 69 Blood Pressure Position Pulse Oximetry 95 93 Oxygen Delivery Method Room Air Room Air Oxygen Flow Rate 2 2 Sepsis Recent Fever Within 48 Hours Sepsis New/Unexplained Change in Mental Status Sepsis Action Taken by Nursing 02/07/21 09:15 12/01/21 09:16 02/07/21 09:30 Temperature 36.6 C Temperature Source Oral Pulse Rate 127 H 97 H 120 H Pulse Rate from SpO2 Sensor Pulse Rhythm Pulse Strength Respiratory Rate 21 20 24 Respiratory Effort / Characteristics Respiratory Depth Respiratory Pattern Blood Pressure 101/59 L 101/59 L 119/56 L Blood Pressure Mean 73 73 77 Blood Pressure Position Pulse Oximetry 94 Oxygen Delivery Method Oxygen Flow Rate 2 Sepsis Recent Fever Within 48 Hours Sepsis New/Unexplained Change in Mental Status Sepsis Action Taken by Nursing 02/07/21 09:45 02/07/21 10:00 02/07/21 10:15 Temperature Temperature Source Pulse Rate 110 H 88 109 H Pulse Rate from SpO2 Sensor Pulse Rhythm Pulse Strength Respiratory Rate 19 18 23 Respiratory Effort / Characteristics Respiratory Depth Respiratory Pattern Blood Pressure 101/62 112/56 L 110/55 L Blood Pressure Mean 75 74 73 Blood Pressure Position Pulse Oximetry 95 Oxygen Delivery Method Room Air Oxygen Flow Rate Sepsis Recent Fever Within 48 Hours Sepsis New/Unexplained Change in Mental Status Sepsis Action Taken by Nursing CONSTITUTIONAL/VITAL SIGNS: Reviewed / noted above. GENERAL: Non-toxic in appearance. INTEGUMENTARY: Warm, dry, and Earl. HEAD: Normocephalic. EYES: without scleral icterus or trauma. ENT/OROPHARYNX: clear and moist. LYMPHADENOPATHY/NECK: Is supple without lymphadenopathy or meningismus. RESPIRATORY: Clear to auscultation bilaterally. No increased work of breathing. CARDIOVASCULAR: Regular rate and rhythm. GI/ABDOMEN: Soft and nontender. No organomegaly or pulsatile mass. EXTREMITIES: Warm and well perfused. BACK: No CVA tenderness. NEUROLOGICAL: Intact without focal deficits. PSYCHIATRIC: normal affect. MUSCULOSKELETAL: Normally developed with good muscle tone. RECTAL: Gross dark blood on exam TRIAGE NURSING DOCUMENTATION REVIEWED. Course Administered Medications Discontinued Medications Alteplase, Recombinant (Alteplase, Recombinant 1 Mg/Ml 2ml Vial) 2 mg INSTIL ONE ONE Stop: 02/07/21 09:50 Last Admin: 02/07/21 11:59 Dose: 2 mg Documented by: [id number] Cosigned by: [id number] Sodium Chloride (Nss 1000ml) 1,000 mls @ 999 mls/hr IV .Q1H1M MILES Stop: 02/07/21 08:15 Last Infusion: 02/07/21 10:43 Dose: 0 mls/hr Documented by: [id number] Admin: 02/07/21 07:46 Dose: 999 mls/hr Documented by: [id number] Pantoprazole Sodium 80 mg/ (Dextrose) 100 mls @ 400 mls/hr IV NOW ONE Stop: 02/07/21 07:25 Last Infusion: 02/07/21 08:29 Dose: 0 mls/hr Documented by: [id number] Admin: 02/07/21 07:57 Dose: 400 mls/hr Documented by: [id number] Famotidine (Pepcid 20mg Iv Push) 20 mg in 5 mls @ 2.5 mls/min IV NOW STA Stop: 02/07/21 07:12 Last Admin: 02/07/21 07:46 Dose: 2.5 mls/min Documented by: [id number] Ioversol (Optiray 320 100ml) 96 ml IV ONCE ONE Stop: 02/07/21 11:33 Last Admin: 02/07/21 11:33 Dose: 96 ml Documented by: [id number] Critical Care Time Critical Care Time: Yes Total Critical Care Time: 35 I have personally spent 35 minutes of critical care time in the direct management of this patient. This includes bedside care, interpretation of diagnostic studies, and testing, discussion with consultants, patient, and family members, and other required patient management activities. This 35 minutes is in excess of all separately billable procedures. Medical Decision Making Differential Diagnosis Diverticulosis, AVM, coagulopathy, colitis, inflammatory bowel disease, malignancy, Melba-Purdy tear, esophagitis, peptic ulcer disease, variceal bleed, gastritis, epistaxis, fissure, hemorrhoids, as well as other pathologies. Medical Records Attestation: I reviewed the patient's medical records. Home Medications Current Medication List: was personally reviewed by me Laboratory Data Attestation: I reviewed the patient's lab results. Result diagrams: 02/07/21 07:36 02/07/21 07:36 Lab Results 02/07/21 02/07/21 02/07/21 Range/Units 07:36 07:36 07:36 WBC 16.87 H (4.8-10.8) K/uL RBC 2.54 L (4.2-5.4) M/uL Hgb 7.7 L (12.0-16.0) g/dL Hct 24.5 L (37-47) % MCV 96.5 (80-100) fL MCH 30.3 (25-34) pg MCHC 31.4 L (32-36) g/dL RDW Std Deviation 52.4 H (36.4-46.3) fL RDW Coeff of Mya 14.8 H (11.5-14.5) % Plt Count 244 (130-400) K/uL MPV 10.5 H (7.4-10.4) fL Neutrophils % (Manual) 86.1 % Lymphocytes % (Manual) 6.1 % Monocytes % (Manual) 4.3 % Metamyelocytes % (Man) 3.5 % Neutrophils # (Manual) 14.53 H (1.4-6.5) K/uL Total Absolute Neuts 14.53 H (1.4-6.5) K/uL Lymphocytes # (Manual) 1.03 L (1.2-3.4) K/uL Total Abs Lymphocytes 1.03 L (1.2-3.4) K/uL Monocytes # (Manual) 0.73 H (0.11-0.59) K/uL Metamyelocytes # (Man) 0.59 H (0-0) K/uL PT 13.2 H (9.0-12.0) Seconds INR 1.3 H (0.9-1.1) APTT 29.3 (21.0-31.0) Seconds PTT Ratio 1.1 Sodium (136-145) mmol/L Potassium (3.5-5.1) mmol/L Chloride (98-107) mmol/L Carbon Dioxide (21-32) mmol/L Anion Gap (3-11) BUN (7-18) mg/dl Creatinine (0.6-1.2) mg/dl Est Cr Clr Drug Dosing ml/min Est GFR ( Amer) ml/min Est GFR (Non-Af Amer) ml/min BUN/Creatinine Ratio (10-20) Glucose (70-99) mg/dl Lactate (0.4-2.0) mmol/L Calcium (8.5-10.1) mg/dl Total Bilirubin (0.2-1) mg/dl AST (15-37) U/L ALT (12-78) U/L Alkaline Phosphatase (45-117) U/L Troponin I (0-0.045) ng/ml Total Protein (6.4-8.2) gm/dl Albumin (3.4-5.0) gm/dl Globulin (2.5-4.0) gm/dl Albumin/Globulin Ratio (0.9-2) POC Stool Occult Blood (Negative) SARS-CoV-2, RNA, NAAT (NEGATIVE) Blood Type O Positive Antibody Screen NEGATIVE Crossmatch See Detail 02/07/21 02/07/21 02/07/21 Range/Units 07:36 07:36 07:40 WBC (4.8-10.8) K/uL RBC (4.2-5.4) M/uL Hgb (12.0-16.0) g/dL Hct (37-47) % MCV (80-100) fL MCH (25-34) pg MCHC (32-36) g/dL RDW Std Deviation (36.4-46.3) fL RDW Coeff of Mya (11.5-14.5) % Plt Count (130-400) K/uL MPV (7.4-10.4) fL Neutrophils % (Manual) % Lymphocytes % (Manual) % Monocytes % (Manual) % Metamyelocytes % (Man) % Neutrophils # (Manual) (1.4-6.5) K/uL Total Absolute Neuts (1.4-6.5) K/uL Lymphocytes # (Manual) (1.2-3.4) K/uL Total Abs Lymphocytes (1.2-3.4) K/uL Monocytes # (Manual) (0.11-0.59) K/uL Metamyelocytes # (Man) (0-0) K/uL PT (9.0-12.0) Seconds INR (0.9-1.1) APTT (21.0-31.0) Seconds PTT Ratio Sodium 138 (136-145) mmol/L Potassium 4.7 (3.5-5.1) mmol/L Chloride 108 H (98-107) mmol/L Carbon Dioxide 21 (21-32) mmol/L Anion Gap 8.0 (3-11) BUN 31 H (7-18) mg/dl Creatinine 1.18 (0.6-1.2) mg/dl Est Cr Clr Drug Dosing 43.6 ml/min Est GFR ( Amer) 50.4 ml/min Est GFR (Non-Af Amer) 43.5 ml/min BUN/Creatinine Ratio 26.4 H (10-20) Glucose 123 H (70-99) mg/dl Lactate 1.9 (0.4-2.0) mmol/L Calcium 7.5 L (8.5-10.1) mg/dl Total Bilirubin 0.3 (0.2-1) mg/dl AST 36 (15-37) U/L ALT 21 (12-78) U/L Alkaline Phosphatase 95 (45-117) U/L Troponin I < 0.015 (0-0.045) ng/ml Total Protein 5.4 L (6.4-8.2) gm/dl Albumin 1.2 L (3.4-5.0) gm/dl Globulin 4.2 H (2.5-4.0) gm/dl Albumin/Globulin Ratio 0.3 L (0.9-2) POC Stool Occult Blood Positive A (Negative) SARS-CoV-2, RNA, NAAT (NEGATIVE) Blood Type Antibody Screen Crossmatch 02/07/21 Range/Units 08:45 WBC (4.8-10.8) K/uL RBC (4.2-5.4) M/uL Hgb (12.0-16.0) g/dL Hct (37-47) % MCV (80-100) fL MCH (25-34) pg MCHC (32-36) g/dL RDW Std Deviation (36.4-46.3) fL RDW Coeff of Mya (11.5-14.5) % Plt Count (130-400) K/uL MPV (7.4-10.4) fL Neutrophils % (Manual) % Lymphocytes % (Manual) % Monocytes % (Manual) % Metamyelocytes % (Man) % Neutrophils # (Manual) (1.4-6.5) K/uL Total Absolute Neuts (1.4-6.5) K/uL Lymphocytes # (Manual) (1.2-3.4) K/uL Total Abs Lymphocytes (1.2-3.4) K/uL Monocytes # (Manual) (0.11-0.59) K/uL Metamyelocytes # (Man) (0-0) K/uL PT (9.0-12.0) Seconds INR (0.9-1.1) APTT (21.0-31.0) Seconds PTT Ratio Sodium (136-145) mmol/L Potassium (3.5-5.1) mmol/L Chloride (98-107) mmol/L Carbon Dioxide (21-32) mmol/L Anion Gap (3-11) BUN (7-18) mg/dl Creatinine (0.6-1.2) mg/dl Est Cr Clr Drug Dosing ml/min Est GFR ( Amer) ml/min Est GFR (Non-Af Amer) ml/min BUN/Creatinine Ratio (10-20) Glucose (70-99) mg/dl Lactate (0.4-2.0) mmol/L Calcium (8.5-10.1) mg/dl Total Bilirubin (0.2-1) mg/dl AST (15-37) U/L ALT (12-78) U/L Alkaline Phosphatase (45-117) U/L Troponin I (0-0.045) ng/ml Total Protein (6.4-8.2) gm/dl Albumin (3.4-5.0) gm/dl Globulin (2.5-4.0) gm/dl Albumin/Globulin Ratio (0.9-2) POC Stool Occult Blood (Negative) SARS-CoV-2, RNA, NAAT POSITIVE A* (NEGATIVE) Blood Type Antibody Screen Crossmatch Imaging Data Radiologist's Impression: Chest X-Ray 02/07/21 07:11 XR chest 1V portable HISTORY: illness COMPARISON: Chest 01/02/2021. FINDINGS: No pneumothorax. No pleural effusions. No focal lung consolidations to suggest pneumonia. No evidence for pulmonary edema. The cardiac silhouette remains top normal in size. There is a mildly tortuous thoracic aorta. A right PICC terminates in the expected location of the proximal SVC. IMPRESSION: No acute process. ACT 112: Negative or not required by law. Electronically signed by: Rolando Dumont M.D. 02/07/2021 8:55 AM Abdomen/Pelvis CT 02/07/21 10:[address] WITH IV CONTRAST CT DOSE: 840.48 mGycm HISTORY: GI bleed. TECHNIQUE: Multiaxial CT images of the abdomen and pelvis were performed fo llowing the use of intravenous contrast. A dose lowering technique was utilized adhering to the principles of ALARA. COMPARISON STUDY: Abdomen and pelvis CT 05/09/2015. FINDINGS: A few right basilar linear densities consistent with subsegmental atel ectasis. There is a trace right pleural effusion. No pneumoperitoneum. No pneumatosis. Status post posterior decompression at L2-L3. There is a large osteophytes seen within the right L4-5 facet extending into the central canal resulting in moderate to severe central canal narrowing at this level. This remains unchanged. Peripherally calcified fluid collection at the laminectomy sites favors a postoperative seroma. Severe calcified plaque within the proximal right common femoral artery resulting in 75% stenosis. Mild body wall edema. Small amount of subcutaneous gas within the left anterior abdominal wall and right flank may be due to prior medication injection. A 1.4 cm focal outpouching within the superior aspect of the duodenal bulb best seen image 124. No significant surrounding inflammatory change. This could represent a duodenal bulb ulcer or diverticulum. There is an additional stable 3.6 cm diverticulum within the second portion of the duodenum. Prior cholecystectomy. The pancreas, spleen, and adrenal glands unremarkable. No hydronephrosis. Multiple bilateral renal hypodense lesions. The majority these are too small to characterize. There is an exophytic nodule within the lower pole of the right kidney which measures 6 mm. This is also too small to characterize but could represent a hyperdense cyst or solid renal lesion. No retroperitoneal lymphadenopathy. Mild calcified plaque within the normal caliber abdominal aorta. The main portal vein is patent. The bladder is unremarkable. The uterus and bilateral adnexa are within normal limits. Colonic diverticulosis. No evidence for acute diverticulitis. Mild thickening of the sigmoid colon is likely due to muscular hypertrophy. There is also mild segmental thickening within the ascending colon and transverse colon suggestive of a mild nonspecific colitis. Normal appendix. No evidence for bowel obstruction. IMPRESSION: 1. Mild circumferential thickening within the ascending colon and transverse colon. This likely represents a nonspecific colitis and could be due to an infectious or inflammatory process. 2. No evidence for bowel obstruction. 3. Colonic diverticulosis. No evidence for acute diverticulitis. 4. Normal appendix. 5. A 1.4 cm focal outpouching within the superior aspect of the duodenal bulb. This is new from the prior study and could represent a duodenal ulcer or diverticulum. Consider follow-up endoscopy for further evaluation. 6. Trace right pleural effusion. 7. A new 6 mm exophytic nodule within the lower pole the right kidney. This could represent a hyperdense cyst or solid renal lesion. One year CT follow-up recommended to ensure stability. ACT 112: Negative or not required by law. Electronically signed by: Rolando Dumont M.D. 02/07/2021 12:06 PM ECG Data Attestation: I personally reviewed and interpreted this ECG as follows: Additional Comments: Twelve-lead EKG: Per my interpretation there is a sinus tach at a rate of 125. No ST elevation. No PVCs. Normal QTC. MDM Narrative Patient presents to the ED with a low blood pressure in the setting of GI bleeding that started this morning. Blood pressure was hypotensive here with an initial blood pressure 51/44 and a heart rate of 124. She has gross dark blood on rectal exam. Hemoglobin is 7.7. The patient's INR is 1.3. BUN is 31. Troponin is negative. Covid test was positive. The patient was given IV fluids initially for hypotension. She was also given IV Protonix and IV Pepcid. She was started on a Protonix IV drip. The patient was transfused 2 units of blood during her ED stay due to her hemodynamic instability. She will be seen by the hospitalist for further inpatient evaluation and care. I did speak with Dr. Pickens about the patient from GI. He recommended the patient readmitted to medicine with conservative management. He did recommend a CT scan of the abdomen pelvis with IV contrast as well. The CT scan as noted above. There is possibly a duodenal ulcer or diverticulum. Impression & Plan GI bleed, Hemorrhagic shock, COVID-19 Discharge Plan Visit Data Chief Complaint: Rectal Bleed Stated Complaint: RECTAL BLEED, HYPOTENSION ED Provider: Surinder Osorio Discharge Problem: GI bleed, Hemorrhagic shock, COVID-19 Patient Disposition: Being Evaluated by Hospitalist
[2021-02-07 08:08] LABS: Albumin Globulin Ratio 0.3 (0.9-2); Alkaline Phosphatase 95 U/L (45-117); Bilirubin,Total 0.3 mg/dl (0.2-1); Globulin 4.2 gm/dl (2.5-4.0); Total Protein 5.4 gm/dl (6.4-8.2); Troponin I < 0.015 ng/ml (0-0.045)
[2021-02-07 08:27] LABS: ALC (manual) 1.03 K/uL (1.2-3.4); ANC (manual) 14.53 K/uL (1.4-6.5); Lymphocytes # (manual) 1.03 K/uL (1.2-3.4); Lymphocytes % (manual) 6.1 %; Metamyelocytes # (manual) 0.59 K/uL (0-0); Metamyelocytes % (manual) 3.5 %; Monocytes # (manual) 0.73 K/uL (0.11-0.59); Monocytes % (manual) 4.3 %; Neutrophils # (manual) 14.53 K/uL (1.4-6.5); Neutrophils % (manual) 86.1 %
--- NOTE | 2021-02-07 08:56 | XRay Report ---
XR chest 1V portable HISTORY: illness COMPARISON: Chest 01/02/2021. FINDINGS: No pneumothorax. No pleural effusions. No focal lung consolidations to suggest pneumonia. N o evidence for pulmonary edema. The cardiac silhouette remains top normal in size. There is a mildly tortuous thoracic aorta. A right PICC terminates in the expected location of the proximal SVC. IMPRESSION: No acute process. ACT 112: Negative or not required by law. Electronically signed by: Rolando uDmont M.D. 02/07/2021 8:55 AM
[2021-02-07] MEDS ORDERED: ALTEPLASE, RECOMBINANT 1 MG/ML 2ML VIAL INSTIL ONE (09:49)
[2021-02-07] MEDS ORDERED: OPTIRAY 320 100ml IV ONE (11:32)
--- NOTE | 2021-02-07 12:08 | CT Scan Report ---
ABDOMEN AND PELVIS CT WITH IV CONTRAST CT DOSE: 840.48 mGycm HISTORY: GI bleed. TECHNIQUE: Multiaxial CT images of the abdomen and pelvis were performed following the use of intrave nous contrast. A dose lowering technique was utilized adhering to the principles of ALARA. COMPARISON STUDY: Abdomen and pelvis CT 05/09/2015. FINDINGS: A few right basilar linear densities consistent with subsegmental atelectasis. There is a t race right pleural effusion. No pneumoperitoneum. No pneumatosis. Status post posterior decompression at L2-L3. There is a large osteophytes seen within the right L4-5 facet extending into the central c anal resulting in moderate to severe central canal narrowing at this level. This remains unchanged. P eripherally calcified fluid collection at the laminectomy sites favors a postoperative seroma. Severe calcified plaque within the proximal right common femoral artery resulting in 75% stenosis. Mild bod y wall edema. Small amount of subcutaneous gas within the left anterior abdominal wall and right flan k may be due to prior medication injection. A 1.4 cm focal outpouching within the superior aspect of the duodenal bulb best seen image 124. No significant surrounding inflammatory change. This could rep resent a duodenal bulb ulcer or diverticulum. There is an additional stable 3.6 cm diverticulum withi n the second portion of the duodenum. Prior cholecystectomy. The pancreas, spleen, and adrenal glands unremarkable. No hydronephrosis. Multiple bilateral renal hypodense lesions. The majority these are too small to characterize. There is an exophytic nodule within the lower pole of the right kidney whi ch measures 6 mm. This is also too small to characterize but could represent a hyperdense cyst or noelle id renal lesion. No retroperitoneal lymphadenopathy. Mild calcified plaque within the normal caliber abdominal aorta. The main portal vein is patent. The bladder is unremarkable. The uterus and bilatera l adnexa are within normal limits. Colonic diverticulosis. No evidence for acute diverticulitis. Mild thickening of the sigmoid colon is likely due to muscular hypertrophy. There is also mild segmental thickening within the ascending colon and transverse colon suggestive of a mild nonspecific colitis. Normal appendix. No evidence for bowel obstruction. IMPRESSION: 1. Mild circumferential thickening within the ascending colon and transverse colon. This likely repre sents a nonspecific colitis and could be due to an infectious or inflammatory process. 2. No evidence for bowel obstruction. 3. Colonic diverticulosis. No evidence for acute diverticulitis. 4. Normal appendix. 5. A 1.4 cm focal outpouching within the superior aspect of the duodenal bulb. This is new from the p rior study and could represent a duodenal ulcer or diverticulum. Consider follow-up endoscopy for fur ther evaluation. 6. Trace right pleural effusion. 7. A new 6 mm exophytic nodule within the lower pole the right kidney. This could represent a hyperde nse cyst or solid renal lesion. One year CT follow-up recommended to ensure stability. ACT 112: Negative or not required by law. Electronically signed by: Rolando Dumont M.D. 02/07/2021 12:06 PM
--- NOTE | 2021-02-07 12:24 | History & Physical Report ---
Date of Service February 07, 2021 Assessment & Plan (1) Acute blood loss anemia: Plan: Mrs. Nieves is an 80 yo woman who presented for acute rectal bleeding, found to be in hemorrhagic shock on arrival. - Hemodynamically stable after IV fluid infusion - Hgb 7.7, MCV 96 - secondary to GI bleed; etiology uncertain, favor lower > upper source * elevated BUN would favor upper source; CT abdomen/pelvis showing duodenal out- pouching which could be consistent with an ulceration/diverticulum; ED provider noted dark blood exiting rectum * CT abdomen showing no intraluminal bleeding; suspect diverticular bleed vs. inflammation from ascending/transverse colon causing GI mucosal friability - continue PPI drip until upper GI source is ruled out - hold further lovenox doing - GI consult placed - 2 units pRBCs ordered - trend H+H q4h (2) Bacteremia: Plan: - Blood cultures from previous admission (12/2020) growing callahan-sensitive group B strep and Klebsiella - Repeat blood cultures ordered on admission - WBC 16 on arrival, up from 14 at discharge on 01/08/21 - SIRS criteria met on admission - however I strongly suspect hemodynamic instability was due to hemorrhagic shock rather than septic response - trend CBC - continue Rocephin 2g daily (3) COVID-19: Plan: - asymptomatic - CXR showing no acute abnormalities - will hold off on checking d-dimer, CRP, ferritin - pharmacotherapy not indicated as patient is not symptomatic at this time - cannot using Lovenox due to acute GI bleed - covid 19 precautions (4) Back pain: Plan: - secondary to recent lumar decompression and medial facetectomies - pain control with IV Tylenol, oxycodone - continue home dose gabapentin - kpad (5) CKD (chronic kidney disease): Plan: - history of stage 3 CKD - Cr 1.18 on admission, BUN at 31 - IVF given on admission - trend BMP (6) HLD (hyperlipidemia): Plan: - continue home dose statin (7) RBBB: Plan: - incomplete RBBB noted on admission ECG, new compared to prior studies - consider outpatient follow up with cardiology (8) Kidney lesion, [place], right: Plan: - 6mm exophytic lesion on pole of R kidney incidentally noted on CT scan - radiology recommend follow up with CT scan in 1 year (02/07/2022) DVT ppx: chemo contraindicated in setting of acute GI bleed; SCDs Diet: NPO in the event of procedure Dispo: Med/tele with covid 19 precautions CODE: DNR/DNI , I discussed with patient Admission and Anticipated Discharge Date Admission Date: February 07, 2021 History of Present Illness Primary Care Provider: Ayesha Agrawal MD Mrs. Nieves is an 80 yo woman who was brought to [facility] from [facility] after staff noticed she began passing bright red blood per rectum at 4:15 am this morning. Of note, she was admitted to [facility] on 01/02/21 for evaluation of progressive back pain, weakness and falls. A lumbar spine MRI identified an epidural abscess - Dr. Crook took her to the OR for a lumbar decompression with bilateral medial facetectomies at L1-2, L2-L3 and L3-L4, as well as evacuation of the epidural abscess. The cause for the epidural abscess was never identified, as patient had no instrumentation prior its formation. Blood cultures from the same admission grew callahan-sensitive group B strep and Klebsiella. A PICC line was placed - [facility] Infectious Disease was consulted and recommend 6 weeks of Ceftriaxone, 2g IV daily. A TTE was performed and showed no evidence of valvular vegetations. She was discharged to [facility] for rehab with a order for daily prophylactic Lovenox dosing at 0.5mg/kg/day. She is not fully anticoagulated, nor does she take a daily baby aspirin. She denies any history of previous GI bleeds, no history of brain bleeds. Social Hx: she received two Moderna COVID 19 vaccines in May 2020 - never got the booster. In the ED, she was hypotensive on arrival with a systolic pressure of 70mmHg and HR of 124bpm, however hemodynamic status improved with 1 liter of NSS. She was afebrile with a RR is 20 and she was satting 97% on room air. Hgb was 7.7 on admission, down from 10.1 on 01/08/21; MCV at 96. Hemoccult stool positive. Platelets normal. INR at 1.3. WBC elevated to 16 with neutrophil predominance. Electrolytes WNL. Creatinine 1.18, BUN at 31. LFTs not elevated. Troponin undetectable. COVID 19 positive. EKG showed sinus tachycardia with PACs, RBBB but no acute ST segment changes. CXR showing no acute changes. Cat scan of abdomen/pelvis showing evidence of mild circumferential thickening within the ascending colon and transverse colon, consistent with a colitis; diverticulosis but not evidence of diverticulitis; a 1.4 cm focal outpouching of the duodenal bulb, a trace R pleural effusion, and 6mm exophytic lesion of R kidney. Her PICC line was found to be occluded on arrival but was flushed with Alteplase by IV team. She was consented for blood products; 2 units of pRBCs were ordered. She was given famotidine 20mg IV, and a protonix drip. Allergies Allergy/AdvReac Type Severity Reaction Status Date / Time No Known Allergies Allergy Mild Verified 02/07/21 08:15 Home Medications Medication Instructions Recorded Confirmed Type triamterene 37.5 1 tab PO QAM #90 tab 03/30/20 02/07/21 Rx mg-hydrochlorothiazide 25 mg tablet (Maxzide-25mg) atorvastatin 10 mg tablet 10 mg PO HS 02/07/21 02/07/21 History diclofenac sodium 1 % topical gel 4 g TOPICAL QID 02/07/21 02/07/21 History enoxaparin 40 mg/0.4 mL 40 mg SUBCUT DAILY 02/07/21 02/07/21 History subcutaneous syringe gabapentin 100 mg capsule 200 mg PO BID 02/07/21 02/07/21 History lidocaine 5 % topical patch 2 patch TOPICAL QAM 02/07/21 02/07/21 History (Lidoderm) lisinopril 10 mg tablet 10 mg PO BID 02/07/21 02/07/21 History oxycodone 5 mg tablet 5 mg PO Q4H PRN 02/07/21 02/07/21 History Past Med/Surg History Medical History Acquired lymphedema RLE, wears compression stocking 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 LAST SURGERY 2010> FOLLOWS DR. OWEN CHAVEZ IN [facility] Chronic low back pain Chronic toe pain, right foot Cold intolerance Diverticulosis of colon Dyslipidemia Encounter for pre-operative examination Generalized osteoarthritis of multiple sites History of nicotine dependence Hypertension Menopause Osteoarthritis Right knee DJD Stasis edema of right lower extremity CHRONIC Surgical History H/O parotidectomy History of colonoscopy Hx of bilateral cataract extraction Hx of surgical procedure X4 TO [place] ARE[place] FOR CANCER S/P cholecystectomy Family History Father Hypertension Diabetes Hyperlipidemia Mother Hypertension Social History Smoking Status: Former smoker Second Hand Exposure: No; Hx Alcohol Use: No Hx Substance Use: No Preferred Language: Sinhala Communication Ability: Effective Hearing Ability: Normal Sole Filler Required: No Beliefs That Will Affect Care: None Current Living Situation: Alone current occupational status: retired How many Children do You have: 0 Feels Safe at Home: Yes Childhood Exposure to Second-Hand Smoke: No Dental Care, Regularly: Yes Physical Activity Frequency: 3-4 Times per Week Seatbelt Use: always Sunscreen Use: Yes Assistive Devices: Walker Review of Systems Constitutional: + fatigue; no fever and no chills Respiratory: no cough, no chest congestion and no dyspnea Cardiovascular: no chest pain Gastrointestinal: no abdominal pain, no coffee ground emesis and no hematemesis Physical Exam Constitutional: WD/WN, vitals as above cooperative; no acute distress Eyes: + anicteric sclerae ENMT: external ear and nose normal, oropharynx normal Neck: trachea midline Respiratory: normal respiratory effort, lungs clear to auscultation no cough Auscultation: no crackles, no rales and no wheezes Cardiovascular: Rate/Rhythm: regular rate; + abnormal rhythm Heart Sounds: normal S1 and normal S2; no murmur Extremities: + pedal edema (R > L ) Gastrointestinal (Abdomen): normal bowel sounds, soft, nontender, no hepatosplenomegaly Musculoskeletal: Head/Neck/Chest: normocephalic and head atraumatic Skin: no rashes, warm and dry + purpura (b/l upper extremities ) Neurologic: moves all extremities Psychiatric: A+Ox3, euthymic affect Results & Data Results & Data ([facility]) Vital Signs (Past 12 Hours) Vital Signs Temp Pulse Resp BP Pulse Ox 02/07/21 11:47 36.7 C 97 H 20 122/56 L 97 02/07/21 10:15 109 H 23 110/55 L 95 02/07/21 10:00 88 18 112/56 L 02/07/21 09:45 110 H 19 101/62 12/01/21 09:30 120 H 24 119/56 L 02/07/21 09:16 36.6 C 97 H 20 101/59 L 94 02/07/21 09:15 127 H 21 101/59 L 02/07/21 09:00 96 H 29 H 93/58 L 93 02/07/21 08:45 106 H 19 88/56 L 02/07/21 08:30 108 H 23 103/47 L 95 02/07/21 08:00 101 H 21 85/62 L 02/07/21 07:55 124 H 20 85/54 L 02/07/21 07:40 36.9 C 124 H 22 51/44 L 94 Supervising Physician Co-Signing Physician Notes I also saw the patient with the resident physician and confirmed dennison portions of the clinical history and exam. I agree with the impression and plan as noted in the resident documentation. Briefly, 80-year-old female who was at [facility] recovering from an epidural abscess presented to the emergency department after passing a "cupful" of blood per rectum around 4 AM this morning. Upon initial presentation to the emergency department, she was found to be hypotensive with a systolic pressure around 70 mmHg and a heart rate of 120 bpm. Fortunately, her hemodynamics significantly improved with 1 L of normal saline. Her hemoglobin was found to be 7.7 upon presentation, down from 10.1 on January 08. She was transfused 2 units of packed red blood cells. COVID-19 positive. Exam 123/61, 119, 20, 36.7, 96% on nasal cannula 2 L/min She is alert and oriented. No complaints other than some chronic back pain; this seems to be about the same as previous. Heart seems regular with frequent ectopy; auscultation is difficult as heart sounds are distant. Lungs seem clear with nonlabored respirations Labs Presenting hemoglobin 7.7, repeat post 2 units packed red blood cells 10.3 Sodium 138, potassium 4.7, BUN 31, creatinine 1.18 Stool is Hemoccult positive COVID-[address] scan abdomen pelvis shows mild circumferential thickening within the ascending colon and transverse colon, diverticulosis without evidence of diverticulitis, a 1.4 cm focal outpouching within the superior aspect of the duodenal bulb. Chest x-ray was unremarkable Assessment and plan Acute blood loss anemia GI bleed, source uncertain Now hemodynamically stable after 1 L normal saline and 2 units packed red blood cells Protonix drip GI consult Monitor hemoglobin History of epidural abscess Do not think patient's presentation was secondary to infection however given her recent history of epidural abscess, will check blood cultures. Continue Rocephin She is positive for COVID-19, but no symptoms. She has been vaccinated. Continue to monitor for signs or symptoms; no indication for treatment or monoclonal antibodies at this point Additional per resident documentation Resident Activity Tracking Resident Involvement: Resident Care Provided Care Provided: Adult Hospital Medicine
[2021-02-07] MEDS ORDERED: ACETAMINOPHEN 1000 MG/100 ML IV IV PRN (12:25)
[2021-02-07] MEDS ORDERED: ONDANSETRON INJ 2 MG/ML 2 ML VIAL IV PRN (12:25)
[2021-02-07] MEDS: PANTOprazole 40 MG in DEXTROSE 5% 100 ML IV SCH ×4 (13:36→22:30)
[2021-02-07] MEDS: DICLOFENAC SOD 1% GEL 100 GM TUBE EXT SCH ×3 (13:36→20:28)
[2021-02-07] MEDS: LIDOCAINE 5% 1 PATCH TD SCH (13:36)
--- NOTE | 2021-02-07 14:07 | Electrocardiogram Report ---
Test Reason : Blood Pressure : / mmHG Vent. Rate : 125 BPM Atrial Rate : 125 BPM P-R Int : 166 ms QRS Dur : 100 ms QT Int : 308 ms P-R-T Axes : 059 075 023 degrees QTc Int : 444 ms Sinus tachycardia with Premature atrial complexes Low voltage QRS Incomplete right bundle branch block Borderline ECG When compared with ECG of 02-JAN-2021 08:50, Incomplete right bundle branch block is now Present Confirmed by River Epperson ([id number]) on 02/07/2021 2:07:04 PM Referred By: REFERRED SELF Confirmed By:Sivakumar Epperson
[2021-02-07 15:20] LABS: Hematocrit (blood only) 31.7 % (37-47); Hemoglobin 10.3 g/dL (12.0-16.0)
[2021-02-07] MEDS: cefTRIAXone SODIUM 2,000 MG in DEXTROSE 5% 50 ML IV SCH (16:45)
[2021-02-07] MEDS: oxyCODONE HCL IR 5 MG TAB (IMMEDIATE RELEASE) PO PRN (16:49)
[2021-02-07] MEDS: SODIUM CHLORIDE 0.9% 1000ML 1,000 ML IV SCH (20:27)
[2021-02-07] MEDS: ATORVASTATIN 10 MG TAB PO SCH (20:28)
[2021-02-07] MEDS: GABAPENTIN 100 MG CAP PO SCH (20:28)
[2021-02-07 21:41] LABS: Hematocrit (blood only) 29.1 % (37-47); Hemoglobin 9.5 g/dL (12.0-16.0)
[2021-02-08] MEDS: PANTOprazole 40 MG in DEXTROSE 5% 100 ML IV SCH ×2 (04:02→09:30)
[2021-02-08] MEDS: oxyCODONE HCL IR 5 MG TAB (IMMEDIATE RELEASE) PO PRN (04:18)
--- NOTE | 2021-02-08 08:53 | Electrocardiogram Report ---
Test Reason : Blood Pressure : / mmHG Vent. Rate : 098 BPM Atrial Rate : 098 BPM P-R Int : 186 ms QRS Dur : 110 ms QT Int : 360 ms P-R-T Axes : 074 070 008 degrees QTc Int : 459 ms Sinus rhythm with Premature atrial complexes Low voltage QRS Incomplete right bundle branch block Abnormal ECG Confirmed by River Epperson ([id number]) on 02/08/2021 8:53:17 AM Referred By: REFERRED SELF Confirmed By:Sivakumar Epperson
[2021-02-08 09:17] LABS: Hematocrit (blood only) 27.5 % (37-47); Hemoglobin 8.8 g/dL (12.0-16.0); Mean Corpuscular Hemoglobin 29.5 pg (25-34); Mean Corpuscular Volume 92.3 fL (80-100); Mean Platelet Volume 10.5 fL (7.4-10.4); Platelet Count 186 K/uL (130-400); RDW Coefficient of Variation 16.3 % (11.5-14.5); RDW Standard Deviation 55.5 fL (36.4-46.3); Red Blood Count 2.98 M/uL (4.2-5.4); White Blood Count 8.19 K/uL (4.8-10.8)
[2021-02-08] MEDS: GABAPENTIN 100 MG CAP PO SCH ×2 (09:29→21:57)
[2021-02-08] MEDS: DICLOFENAC SOD 1% GEL 100 GM TUBE EXT SCH ×4 (09:29→21:57)
[2021-02-08] MEDS: LIDOCAINE 5% 1 PATCH TD SCH (09:30)
[2021-02-08 09:37] LABS: Basophils # (auto) 0.01 K/uL (0-0.2); Basophils % (auto) 0.1 %; Echinocytes 1+; Eosinophils # (auto) 0.03 K/uL (0-0.5); Eosinophils % (auto) 0.4 %; Immature Granulocytes # (auto) 0.45 K/uL (0.00-0.02); Immature Granulocytes % (auto) 5.5 %; Lymphocytes # (auto) 0.93 K/uL (1.2-3.4); Lymphocytes % (auto) 11.4 %; Monocytes # (auto) 0.61 K/uL (0.11-0.59); Monocytes % (auto) 7.4 %; Neutrophils # (auto) 6.16 K/uL (1.4-6.5); Neutrophils % (auto) 75.2 %; Toxic Granulation 1+
[2021-02-08 09:40] LABS: BUN Creatinine Ratio 57.9 (10-20); Calcium 7.8 mg/dl (8.5-10.1); Creatinine Clr Calc Pharmacy 71.5 ml/min; Est GFR (African American) 91.7 ml/min; Est GFR (Non-African American) 79.1 ml/min; Potassium 4.2 mmol/L (3.5-5.1)
--- NOTE | 2021-02-08 11:20 | Gastroenterology Progress Note ---
Date of Service February 08, 2021 Assessment & Plan (1) Ischemic colitis: Plan: Suspect ischemic colitis given significant hypotension and CT findings -Cipro & Flagyl x 10 days -Avoid rapid fluctuations in BP -Pending clinical improvement, consider colonoscopy in 8 weeks when risk of colonic perforation has lessened and when bacteremia has been fully treated -Continue to monitor H/H Admission and Anticipated Discharge Date Admission Date: February 07, 2021 Supervising Physician Co-Signing Physician Notes Agree with Mary Galvan PAC as above Will need outpatient EGD/Colonoscopy in 8 weeks Did discuss case with Dr. Crook of Spine Surgery and he recommended patient transfer secondary to epidural abscess [place], to avoid unnecessary exposure to "Novel Coronavirus" COVID-19 by healthcare personnel Subjective Patient is an 80 yo female who presented to [facility] from a rehabilitation facility after being noted to have BRBPR. She was recently admitted for an epidural abscess for which she underwent a lumbar decompression with facetectomies and evacuation of the abscess. Patient was also found to be bacteremic and has been on a course of IV Ceftriaxone planned for 6 weeks. She was brought to [facility] from [facility] after staff noticed she began passing bright red blood per rectum at 4:15 am on 02/07/21.Of note, she is COVID19 positive. In the ER, she was profoundly hypotensive on arrival with a BP of 51/44. CT of the abdomen/pelvis indicated findings of a nonspecific colitis of the ascending and transverse colon. There was also a question of duodenal ulcer vs diverticulum. This was done with IV contrast only. Current BP is 145/75. Evaluation and recommendations were performed based on chart review. H/H is presently 8.8/27.5. No further bloody bowel movements have been documented. No pertinent family history. Last colonoscopy in our system is from 2006 at which time diverticulosis was noted. Results & Data Results & Data ([facility]) Vital Signs (Past 12 Hours) Vital Signs Pulse Pulse Resp BP BP Pulse Ox 02/08/21 04:28 103 H 18 145/75 H 98 02/08/21 01:30 99 H 18 100 02/08/21 01:15 115 H 21 97 02/08/21 01:00 85 17 129/75 100 02/08/21 00:45 95 H 18 100 02/08/21 00:30 86 17 100 02/08/21 00:15 108 H 17 96 02/08/21 00:00 105 H 20 129/75 100 02/07/21 23:45 91 H 15 100 02/07/21 23:30 88 20 99 PG Care Time/CCT Total # of Minutes Spent Total Time Spent with Patient: Total time spent is greater than 50% in coordination of care (as documented) at patient's floor/unit and/or counseling patient: Coding Level of Care Code None Diagnoses Ischemic colitis K55.9
--- NOTE | 2021-02-08 12:10 | Hospitalist Progress Note ---
Date of Service February 08, 2021 Assessment & Plan (1) Acute blood loss anemia: Plan: Mrs. Nieves is an 80 yo woman who presented for acute rectal bleeding, found to be in hemorrhagic shock on arrival. - Hemodynamically stable after IV fluid infusion and now status post 2 units PRBCs - Hgb 7.7, MCV 96 on arrival and hemoglobin now up to 8.8 and remains hemodynami lance stable - secondary to GI bleed-CT abdomen/pelvis shows nonspecific colitis in ascending and transverse colon, also with duodenal outpouching which could be consistent with ulceration or diverticulum -Suspect ischemic colitis in the setting of profound hypotension as a source of bleeding -Check C. difficile -DC Protonix drip and convert to Protonix 40 mg p.o. once daily - hold further lovenox which she was on for DVT prophylaxis - GI consult placed and appreciated-suspect ischemic colitis-recommends EGD and colonoscopy in 8 weeks, continue Cipro and Flagyl for total of 10 days -Continue to monitor daily CBC or sooner if has recurrent bleeding (2) Bacteremia: Plan: - Blood cultures from previous admission (12/2020) growing callahan-sensitive group B strep and Klebsiella - Repeat blood cultures ordered on admission-no growth to date - WBC 16 on arrival, up from 14 at discharge on 01/08/21-this is likely a reactive leukocytosis and her WBC count is back to normal today without any antibiotic therapy other than ceftriaxone which she has been on for 1 month - SIRS criteria met on admission - however I strongly suspect hemodynamic instability was due to hemorrhagic shock rather than septic response - trend CBC - continue Rocephin 2g daily for previous bacteremia-recommend at least several more weeks until markers of inflammation are down and perhaps upon review of repeat imaging showing resolution of abscess -Check ESR, CRP in the morning -MRI of lumbar spine on 01/31/2021 again shows new epidural abscess and po stoperative seroma -She saw neurology at [place] on 02/05 who did not recommend further surgical intervention at this point (3) COVID-19: Plan: - asymptomatic, but tested positive upon routine Covid screening for admission for hemorrhagic shock Was never hypoxic, however was placed on 2 L nasal cannula upon arrival most likely for hemorrhagic shock - CXR showing no acute abnormalities - pharmacotherapy not indicated as patient is not symptomatic at this time - cannot using Lovenox due to acute GI bleed - covid 19 precautions -Have asked nurse to wean off oxygen (4) Back pain: Plan: - secondary to recent lumbar decompression and medial facetectomies along with recurrent epidural abscess - pain control with IV Tylenol, oxycodone - continue home dose gabapentin - kpad Consult orthopedic spine surgery (5) CKD (chronic kidney disease): Plan: - history of stage 3 CKD - Cr 1.18 on admission, BUN at 31 and creatinine improved now down to 0.72 after PRBC transfusion and IV fluids --DC IV fluids - trend BMP (6) HLD (hyperlipidemia): Plan: - continue home dose statin (7) RBBB: Plan: - incomplete RBBB noted on admission ECG, new compared to prior studies Telemetry with sinus rhythm with frequent PACs - consider outpatient follow up with cardiology -Consider addition of beta-aarti low-dose Continue to monitor on telemetry (8) Kidney lesion, pauma, right: Plan: - 6mm exophytic lesion on pole of R kidney incidentally noted on CT scan - radiology recommend follow up with CT scan in 1 year (02/07/2022) (9) Ischemic colitis: Plan: As above (10) Hemorrhagic shock: Plan: As above (11) Epidural abscess: Plan: As above (12) Hypertension: Plan: Hold home lisinopril due to hypotension Plan: DVT prophylaxis-SCDs only due to hemorrhage Disposition-continued stay on medical/telemetry unit on Covid precautions PT/OT consults placed Admission and Anticipated Discharge Date Admission Date: February 07, 2021 Subjective Patient does not recall having any rectal bleeding and does not recall why she was brought to the hospital. She knows that she has been at [facility] for rehab after her epidural abscess surgery 1 month ago. She reports that she has had persistent lower back pain ever since that time. She was transfused 2 units PRBCs overnight and had improvement of her blood pressure. No bleeding since admission. Patient reports that she has been weak in her legs and still is not able to walk much on her own since being at rehab. She reports that she had a recent MRI and went down to [place] in [facility] for an opinion on her repeat MRI but does not know the results. I discussed her care with Dr. Crook of orthopedic spine surgery-he was to find out what happened with her evaluation at [place] as he was under the impression that she might need repeat drainage of a recurrent episode of her epidural abscess, however later in the day, I found a scanned in report from the neuro surgery PA at [facility] from 02/05 that simply stated that there was no surgical intervention needed at this time. She has not had any fevers. She has been maintained on ceftriaxone. Telemetry reviewed and shows sinus rhythm with very frequent PACs Review of Systems Review of Systems: All systems reviewed & are unremarkable except as noted in HPI & below Physical Exam Constitutional: WD/WN, vitals as above Neck: trachea midline, no thyromegaly Respiratory: normal respiratory effort, lungs clear to auscultation Cardiovascular: Rate/Rhythm: regular rate and regular rhythm (With frequent ectopy) Extremities: + edema (With 1+ pitting edema of the legs and feet bilaterally) Chest (Breasts): Chest: normal inspection of chest Gastrointestinal (Abdomen): normal bowel sounds, soft, nontender, no hepatosplenomegaly Musculoskeletal: Extremities: extremities normal to inspection; no cyanosis and no clubbing Mid to lower back with incisional scar well-healed, positive tenderness palpation over lower spine Skin: no rashes, warm and dry Neurologic: moves all extremities and awake; no focal motor deficits Psychiatric: A+Ox3, euthymic affect Lymphatic: no lymphedema Results & Data Results & Data ([facility]) Vital Signs (Past 12 Hours) Vital Signs Pulse Pulse Resp BP BP Pulse Ox 02/08/21 04:28 103 H 18 145/75 H 98 02/08/21 01:30 99 H 18 100 02/08/21 01:15 115 H 21 97 02/08/21 01:00 85 17 129/75 100 02/08/21 00:45 95 H 18 100 02/08/21 00:30 86 17 100 02/08/21 00:15 108 H 17 96 Laboratory Results 02/08/21 08:42 02/08/21 08:42 PG Care Time/CCT Total # of Minutes Spent Total Time Spent with Patient: Total time spent is greater than 50% in coordination of care (as documented) at patient's floor/unit and/or counseling patient: Coding Level of Care Code 68273 Subseq Hosp Care Lvl 3 Diagnoses Acute blood loss anemia D62 Bacteremia R78.81 COVID-19 U07.1 Back pain M54.9 CKD (chronic kidney disease) N18.9 HLD (hyperlipidemia) E78.5 RBBB I45.10 Kidney lesion, pauma, right N28.9 Ischemic colitis K55.9 Hemorrhagic shock R57.8 Epidural abscess G06.2 Hypertension I10
[2021-02-08] MEDS: cefTRIAXone SODIUM 2,000 MG in DEXTROSE 5% 50 ML IV SCH (14:06)
[2021-02-08] MEDS: metroNIDAZOLE 250 MG TAB PO SCH ×3 (14:06→21:57)
[2021-02-08] MEDS: SODIUM CHLORIDE 0.9% 1000ML 1,000 ML IV SCH (14:10)
[2021-02-08] MEDS: CIPROFLOXACIN 500 MG TAB PO SCH (21:57)
[2021-02-08] MEDS: ATORVASTATIN 10 MG TAB PO SCH (21:57)
[2021-02-08] MEDS: MELATONIN 3 MG TAB PO PRN (21:57)
[2021-02-09 07:11] LABS: Basophils # (auto) 0.01 K/uL (0-0.2); Basophils % (auto) 0.1 %; Eosinophils # (auto) 0.03 K/uL (0-0.5); Eosinophils % (auto) 0.4 %; Hemoglobin 9.2 g/dL (12.0-16.0); Immature Granulocytes # (auto) 0.29 K/uL (0.00-0.02); Immature Granulocytes % (auto) 3.9 %; Lymphocytes % (auto) 10.6 %; Mean Corpuscular Hemoglobin 29.9 pg (25-34); Mean Corpuscular Hgb Conc 31.7 g/dL (32-36); Mean Corpuscular Volume 94.2 fL (80-100); Mean Platelet Volume 10.3 fL (7.4-10.4); Monocytes # (auto) 0.57 K/uL (0.11-0.59); Monocytes % (auto) 7.6 %; Neutrophils # (auto) 5.82 K/uL (1.4-6.5); Neutrophils % (auto) 77.4 %; Platelet Count 166 K/uL (130-400); RDW Coefficient of Variation 16.2 % (11.5-14.5); RDW Standard Deviation 55.6 fL (36.4-46.3); Red Blood Count 3.08 M/uL (4.2-5.4); White Blood Count 7.52 K/uL (4.8-10.8)
[2021-02-09 07:34] LABS: Albumin Level 1.4 gm/dl (3.4-5.0); BUN Creatinine Ratio 41.9 (10-20); C Reactive Protein 4.88 mg/dl (0-0.29); Calcium 7.7 mg/dl (8.5-10.1); Creatinine Clr Calc Pharmacy 69.6 ml/min; Est GFR (African American) 90.2 ml/min; Est GFR (Non-African American) 77.8 ml/min; Magnesium 1.2 mg/dl (1.8-2.4); Potassium 3.9 mmol/L (3.5-5.1)
[2021-02-09 07:37] LABS: Albumin Globulin Ratio 0.4 (0.9-2); Bilirubin,Total 0.2 mg/dl (0.2-1); Globulin 3.9 gm/dl (2.5-4.0); Total Protein 5.3 gm/dl (6.4-8.2)
[2021-02-09] MEDS: LIDOCAINE 5% 1 PATCH TD SCH (08:59)
[2021-02-09] MEDS: metroNIDAZOLE 250 MG TAB PO SCH ×5 (09:00→22:30)
[2021-02-09] MEDS: GABAPENTIN 100 MG CAP PO SCH ×2 (09:00→21:33)
[2021-02-09] MEDS: MELATONIN 3 MG TAB PO PRN ×2 (09:00→21:33)
[2021-02-09] MEDS: CIPROFLOXACIN 500 MG TAB PO SCH ×2 (09:00→21:32)
[2021-02-09] MEDS ORDERED: PANTOprazole 40 MG TAB PO SCH (09:00)
[2021-02-09] MEDS: DICLOFENAC SOD 1% GEL 100 GM TUBE EXT SCH ×4 (09:04→23:26)
[2021-02-09] MEDS: oxyCODONE HCL IR 5 MG TAB (IMMEDIATE RELEASE) PO PRN (09:09)
[2021-02-09] MEDS: MAGNESIUM SULFATE / D5W 1 GM/100 ML BAG IV SCH ×4 (10:11→16:33)
--- NOTE | 2021-02-09 10:32 | Orthopedic Consultation ---
Date of Consultation February 09, 2021 Assessment & Plan (1) Back pain: Assessment status post I&D of the lumbar spine for epidural abscess. Plan at this time she is clearly not a candidate for surgical intervention. Tertiary care evaluation at [facility] does recommend continue IV antibiotics. I would agree with this plan. This point I would recommend a follow-up MRI in the next 4 to 6 weeks lumbar spine. History of Present Illness Reason for Consultation: Back pain with a history of epidural abscess Attending Physician: Rosibel Goncalves MD History of Present Illness This is a 80-year-old female known to me the presents with multiple issues to the hospital yesterday. She is Covid positive she has a GI bleed with ischemic bowel. She continues to complain of back pain. I have had conversations with her physician at rehab earlier this week regarding this issue. We did asked that she seek a consultation at [facility]. They did evaluate the patient reviewed her imaging and suggested that they continue with IV antibiotics. Allergies Allergy/AdvReac Type Severity Reaction Status Date / Time No Known Allergies Allergy Mild Verified 02/07/21 08:15 Home Medications Medication Instructions Recorded Confirmed Type triamterene 37.5 1 tab PO QAM #90 tab 03/30/20 02/07/21 Rx mg-hydrochlorothiazide 25 mg tablet (Maxzide-25mg) atorvastatin 10 mg tablet 10 mg PO HS 02/07/21 02/07/21 History diclofenac sodium 1 % topical gel 4 g TOPICAL QID 02/07/21 02/07/21 History enoxaparin 40 mg/0.4 mL 40 mg SUBCUT DAILY 02/07/21 02/07/21 History subcutaneous syringe gabapentin 100 mg capsule 200 mg PO BID 02/07/21 02/07/21 History lidocaine 5 % topical patch 2 patch TOPICAL QAM 02/07/21 02/07/21 History (Lidoderm) lisinopril 10 mg tablet 10 mg PO BID 02/07/21 02/07/21 History oxycodone 5 mg tablet 5 mg PO Q4H PRN 02/07/21 02/07/21 History Patient History Medical History Acquired lymphedema RLE, wears compression stocking 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 LAST SURGERY 2010> FOLLOWS DR. OWEN CHAVEZ IN [place] Chronic low back pain Chronic toe pain, right foot Cold intolerance Diverticulosis of colon Dyslipidemia Encounter for pre-operative examination Generalized osteoarthritis of multiple sites History of nicotine dependence Hypertension Menopause Osteoarthritis Right knee DJD Stasis edema of right lower extremity CHRONIC Surgical History H/O parotidectomy History of colonoscopy Hx of bilateral cataract extraction Hx of surgical procedure X4 TO [place] [facility] FOR CANCER S/P cholecystectomy Family History Father Hypertension Diabetes Hyperlipidemia Mother Hypertension Social History Smoking Status: Never smoker Second Hand Exposure: No; Hx Alcohol Use: Yes Alcohol type: hard liquor Hx Substance Use: No Preferred Language: Colombian Communication Ability: Effective Hearing Ability: Normal Neonatal Pediatric Nurse Required: Yes Beliefs That Will Affect Care: None Current Living Situation: Alone current occupational status: retired How many Children do You have: 0 Feels Safe at Home: Yes Childhood Exposure to Second-Hand Smoke: No Dental Care, Regularly: Yes Physical Activity Frequency: 3-4 Times per Week Seatbelt Use: always Sunscreen Use: Yes Assistive Devices: Walker Results & Data ([facility]) Vital Signs (Past 12 Hours) Vital Signs Temp Pulse Resp BP Pulse Ox 02/09/21 08:05 37 C 90 22 122/68 92 02/09/21 04:25 36.9 C 102 H 21 130/75 95 02/08/21 23:26 36.7 C 103 H 18 123/66 100
--- NOTE | 2021-02-09 11:04 | Communication Note ---
Date of Service: February 09, 2021 Given persistence of loose stools, recent hospitalization, and antibiotic use, did place an order for C diff. Will also obtain a stool culture and gram stain. Continue Protonix, but would increase to 40 mg BID. H/H is stable at 9.2/29.0 for the moment and BP is 122/68. Continue to monitor for worsening bleeding. Patient will need EGD & colonoscopy as an outpatient when her multiple other medical issues resolve. Agree with JOLENE Mendiola as above Continue current therapy and supportive care No plans for Endoscopic workup as inpatient Will need EGD/Colonoscopy as outpatient when acute issues resolve.
[2021-02-09] MEDS: cefTRIAXone SODIUM 2,000 MG in DEXTROSE 5% 50 ML IV SCH (14:32)
[2021-02-09] MEDS: ATORVASTATIN 10 MG TAB PO SCH (21:32)
[2021-02-09] MEDS: PANTOprazole 40 MG TAB PO SCH (21:33)
--- NOTE | 2021-02-10 00:02 | Hospitalist Progress Note ---
Date of Service February 09, 2021 Late entry for 02/09/21 Assessment & Plan (1) Acute blood loss anemia: Plan: Mrs. Nieves is an 80 yo woman who presented for acute rectal bleeding, found to be in hemorrhagic shock on arrival. - Hemodynamically stable after IV fluid infusion and now status post 2 units PRBCs - Hgb 7.7, MCV 96 on arrival and hemoglobin now up to 9.2 and remains hemodynamically stable - secondary to GI bleed-CT abdomen/pelvis shows nonspecific colitis in ascending and transverse colon, also with duodenal outpouching which could be consistent with ulceration or diverticulum -Suspect ischemic colitis in the setting of profound hypotension as a source of bleeding -only had 2 small black stools AM of 02/09--> most likely old blood and acute bleed has resolved -avoid hypotension -Check C. difficile, stool pathogen PCR panel--> still pending -continue Protonix 40 mg p.o. bid as per GI - hold further lovenox which she was on for DVT prophylaxis - GI consult placed and appreciated-suspect ischemic colitis-recommends EGD and colonoscopy in 8 weeks, continue Cipro and Flagyl for total of 10 days -Continue to monitor daily CBC or sooner if has recurrent bleeding (2) Bacteremia: Plan: - Blood cultures from previous admission (12/2020) growing callahan-sensitive group B strep and Klebsiella ECHO then no valvular vegetation Had epidural abscess decompressed - Repeat blood cultures ordered on admission-no growth to date - WBC 16 on arrival, up from 14 at discharge on 01/08/21-this is likely a reactive leukocytosis and her WBC count is back to normal now without any antibiotic therapy other than ceftriaxone which she has been on for 1 month - SIRS criteria met on admission - however I strongly suspect hemodynamic instability was due to hemorrhagic shock rather than septic response ESR and CRP both trending downward from previous - trend CBC - continue Rocephin 2g daily for previous bacteremia-recommend at least several more weeks until markers of inflammation are down and perhaps upon review of repeat imaging showing resolution of abscess -Check ESR, CRP once weekly while on IV abx -MRI of lumbar spine on 01/31/2021 again shows new epidural abscess and postoperative seroma -She saw neurosurgery at [place] on 02/05 who did not recommend further surgical intervention at this point Appreciate Ortho SPine consult- continue abx, repeat MRI L-spine in 4-6 weeks -will have her f/u with Dr. Crook in office in 4 weeks (3) COVID-19: Plan: - asymptomatic, but tested positive upon routine Covid screening for admission for hemorrhagic shock Was never hypoxic, however was placed on 2 L nasal cannula upon arrival most likely for hemorrhagic shock-O2 now weaned off - CXR showing no acute abnormalities - pharmacotherapy not indicated as patient is not symptomatic at this time - cannot using Lovenox due to acute GI bleed - covid 19 precautions (4) Back pain: Plan: - secondary to recent lumbar decompression and medial facetectomies along with recurrent epidural abscess - pain control with oxycodone , acetaminophen prn - continue home dose gabapentin - kpad Consult orthopedic spine surgery appreciated (5) CKD (chronic kidney disease): Plan: - history of stage 3 CKD - Cr 1.18 on admission, BUN at 31 and creatinine improved now down to 0.72 after PRBC transfusion and IV fluids - trend BMP (6) HLD (hyperlipidemia): Plan: - continue home dose statin (7) RBBB: Plan: - incomplete RBBB noted on admission ECG, new compared to prior studies Telemetry with sinus rhythm with frequent PACs - consider outpatient follow up with cardiology -Consider addition of beta-aarti low-dose for ectopy Continue to monitor on telemetry (8) Kidney lesion, [place], right: Plan: - 6mm exophytic lesion on pole of R kidney incidentally noted on CT scan - radiology recommend follow up with CT scan in 1 year (02/07/2022) (9) Ischemic colitis: Plan: As above (10) Hemorrhagic shock: Plan: As above (11) Epidural abscess: Plan: As above (12) Hypertension: Plan: Hold home lisinopril due to hypotension which is now resolved (13) Anasarca: Plan: albumin very low at 1.4 encouraged po protein intake consult [facility] for recommendations (14) Hypomagnesemia: Plan: severely low at 1.2 replace with 4 grams IV mag follow level in AM Plan: DVT prophylaxis-SCDs only due to hemorrhage Disposition-continued stay on medical/telemetry unit on Covid precautions PT/OT consults appreciated. Due to having COVID, she may not be able to be placed back in rehab until after 02/18. Came from [facility]-referral made to there and to [facility] Admission and Anticipated Discharge Date Admission Date: February 07, 2021 Subjective Pt still has chronic c/o pain all over her body but mostly in lower back. Seems in better spirits today. Had 2 very small loose black stools this AM but RN was unable to send a sample for cx and C> diff. Pt denies abd pain, no nausea. Does not like the Boost taylormadie Discussed her case with Ortho SPine-no surgery indicated Did work with PT a little bit today, could only take 2 steps. At [facility], reports was able to walk 12 steps with a walker prior to this admission Has a chronic cough, not SOB. POx occasionally dips to 88% while talking but no distress or awareness of such. Tele with NSR with very frequent PACs and some bursts of AT Review of Systems Review of Systems: All systems reviewed & are unremarkable except as noted in HPI & below Physical Exam Constitutional: WD/WN, vitals as above Neck: trachea midline, no thyromegaly Respiratory: normal respiratory effort, lungs clear to auscultation Cardiovascular: Rate/Rhythm: regular rate and regular rhythm (With frequent ectopy) Extremities: + edema (With 1+ pitting edema of the legs and feet bilaterally) Chest (Breasts): Chest: normal inspection of chest Gastrointestinal (Abdomen): normal bowel sounds, soft, nontender, no hepatosplenomegaly Musculoskeletal: Extremities: extremities normal to inspection; no cyanosis and no clubbing Skin: no rashes, warm and dry Neurologic: moves all extremities and awake Psychiatric: A+Ox3, euthymic affect Lymphatic: no lymphedema Results & Data Results & Data ([facility]) Vital Signs (Past 12 Hours) Vital Signs Temp Pulse Pulse Pulse Resp BP Pulse Ox 02/09/21 22:47 36.5 C 84 18 122/76 93 02/09/21 22:19 85 02/09/21 21:15 78 02/09/21 21:07 36.5 C 100 H 20 125/85 96 02/09/21 17:44 111 H 23 95/75 L 98 02/09/21 16:18 94 02/09/21 14:58 37 C 100 H 20 98/68 L 96 Laboratory Results 02/09/21 06:38 02/09/21 06:38 PG Care Time/CCT Total # of Minutes Spent Total Time Spent with Patient: Total time spent is greater than 50% in coordination of care (as documented) at patient's floor/unit and/or counseling patient: Coding Level of Care Code 75070 Subseq Hosp Care Lvl 3 Diagnoses Acute blood loss anemia D62 Bacteremia R78.81 COVID-19 U07.1 Back pain M54.9 CKD (chronic kidney disease) N18.9 HLD (hyperlipidemia) E78.5 RBBB I45.10 Kidney lesion, [place], right N28.9 Ischemic colitis K55.9 Hemorrhagic shock R57.8 Epidural abscess G06.2 Hypertension I10 Anasarca R60.1 Hypomagnesemia E83.42
[2021-02-10] MEDS ORDERED: ACETAMINOPHEN 325 MG TAB PO PRN (02:16)
[2021-02-10] MEDS: oxyCODONE HCL IR 5 MG TAB (IMMEDIATE RELEASE) PO PRN ×2 (06:24→23:37)
[2021-02-10] MEDS: metroNIDAZOLE 250 MG TAB PO SCH ×4 (09:57→21:29)
[2021-02-10] MEDS: LIDOCAINE 5% 1 PATCH TD SCH (09:58)
[2021-02-10] MEDS: GABAPENTIN 100 MG CAP PO SCH ×2 (09:59→21:29)
[2021-02-10] MEDS: DICLOFENAC SOD 1% GEL 100 GM TUBE EXT SCH ×4 (10:02→21:30)
[2021-02-10] MEDS: CIPROFLOXACIN 500 MG TAB PO SCH ×2 (10:02→21:29)
[2021-02-10] MEDS: PANTOprazole 40 MG TAB PO SCH ×2 (10:04→21:30)
[2021-02-10 10:21] LABS: Hematocrit (blood only) 27.6 % (37-47); Hemoglobin 8.6 g/dL (12.0-16.0); Mean Corpuscular Hemoglobin 29.5 pg (25-34); Mean Corpuscular Hgb Conc 31.2 g/dL (32-36); Mean Corpuscular Volume 94.5 fL (80-100); Mean Platelet Volume 10.6 fL (7.4-10.4); Platelet Count 164 K/uL (130-400); RDW Standard Deviation 55.7 fL (36.4-46.3); Red Blood Count 2.92 M/uL (4.2-5.4); White Blood Count 6.22 K/uL (4.8-10.8)
[2021-02-10 10:58] LABS: Eosinophils # (auto) 0.02 K/uL (0-0.5); Eosinophils % (auto) 0.3 %; Immature Granulocytes # (auto) 0.09 K/uL (0.00-0.02); Immature Granulocytes % (auto) 1.4 %; Lymphocytes # (auto) 0.81 K/uL (1.2-3.4); Monocytes # (auto) 0.41 K/uL (0.11-0.59); Monocytes % (auto) 6.6 %; Neutrophils # (auto) 4.89 K/uL (1.4-6.5); Neutrophils % (auto) 78.7 %; Toxic Granulation 1+
--- NOTE | 2021-02-10 14:15 | Hospitalist Progress Note ---
Date of Service February 10, 2021 Assessment & Plan (1) Acute blood loss anemia: Plan: Mrs. Nieves is an 80 yo woman who presented for acute rectal bleeding, found to be in hemorrhagic shock on arrival. Suspect 2/2 ischemic colitis - Hemodynamically stable after IV fluid infusion and now status post 2 units PRBCs - Hgb 7.7, MCV 96 on arrival and hemoglobin now up to 9.2 and remains hemodynamically stable - secondary to GI bleed-CT abdomen/pelvis shows nonspecific colitis in ascending and transverse colon, also with duodenal outpouching which could be consistent with ulceration or diverticulum -Suspect ischemic colitis in the setting of profound hypotension as a source of bleeding -only had 2 small black stools AM of 02/09--> most likely old blood and acute bleed has resolved. No BM yet 02/10 -Stool panel pending, diarrhea improving/firming. Unlikely to be C. difficile -continue Protonix 40 mg p.o. bid as per GI - hold further lovenox which she was on for DVT prophylaxis - GI consult placed and appreciated-suspect ischemic colitis-recommends EGD and colonoscopy in 8 weeks, continue Cipro and Flagyl for total of 10 days -Continue to monitor daily CBC or sooner if has recurrent bleeding (2) Bacteremia: Plan: - Blood cultures from previous admission (12/2020) growing callahan-sensitive group B strep and Klebsiella - ECHO then no valvular vegetation - Had epidural abscess decompressed - Repeat blood cultures ordered on admission-no growth to date - WBC 16 on arrival, up from 14 at discharge on 01/08/21-this is likely a reactive leukocytosis and her WBC count is back to normal now without any antibiotic therapy other than ceftriaxone which she has been on for 1 month - SIRS criteria met on admission -suspect due to hemodynamic instability rather than septic response CRP down trended from 22-4, trend every other day - trend CBC - continue Rocephin 2g daily for previous bacteremia-recommend at least several more weeks until markers of inflammation are down and perhaps upon review of repeat imaging showing resolution of abscess -Check ESR, CRP once weekly while on IV abx -MRI of lumbar spine on 01/31/2021 again shows new epidural abscess and postoperative seroma -She saw neurosurgery at [place] on 02/05 who did not recommend further surgical intervention at this point Appreciate Ortho SPine consult- continue abx, repeat MRI L-spine in 4-6 weeks -will have her f/u with Dr. Crook in office in 4 weeks (3) COVID-19: Plan: - asymptomatic, but tested positive upon routine Covid screening for admission for hemorrhagic shock Was never hypoxic, however was placed on 2 L nasal cannula upon arrival most likely for hemorrhagic shock-O2 now weaned off - CXR showing no acute abnormalities - pharmacotherapy not indicated as patient is not symptomatic at this time - cannot using Lovenox due to acute GI bleed - covid 19 precautions (4) Back pain: Plan: - secondary to recent lumbar decompression and medial facetectomies along with recurrent epidural abscess - pain control with oxycodone , acetaminophen prn - continue home dose gabapentin - kpad Consult orthopedic spine surgery appreciated (5) CKD (chronic kidney disease): Plan: - history of stage 3 CKD - Cr 1.18 on admission, BUN at 31 and creatinine improved now remains normalized - trend BMP (6) HLD (hyperlipidemia): Plan: - continue home dose statin (7) RBBB: Plan: - incomplete RBBB noted on admission ECG, new compared to prior studies Telemetry with sinus rhythm with frequent PACs - consider outpatient follow up with cardiology -Consider addition of beta-aarti low-dose for ectopy Continue to monitor on telemetry (8) Kidney lesion, [place], right: Plan: - 6mm exophytic lesion on pole of R kidney incidentally noted on CT scan - radiology recommend follow up with CT scan in 1 year (02/07/2022) (9) Ischemic colitis: Plan: As above (10) Hemorrhagic shock: Plan: As above (11) Epidural abscess: Plan: As above (12) Hypertension: Plan: Hold home lisinopril due to hypotension which is now resolved (13) Anasarca: Plan: albumin very low at 1.4 encouraged po protein intake Boost, dietary consulted (14) Hypomagnesemia: Plan: severely low at 1.2 replace with 4 grams IV mag Repeat magnesium pending Plan: DVT prophylaxis-SCDs only due to hemorrhage Disposition-continued stay on medical/telemetry unit on Covid precautions PT/OT consults appreciated. Due to having COVID, she may not be able to be placed back in rehab until after 02/18. Came from [facility]-referral made to there and to [facility] Admission and Anticipated Discharge Date Admission Date: February 07, 2021 Subjective Aline seen at the bedside this morning. She reports she feels the same as previously denies lightheadedness, dizziness, syncope, presyncope, pain today. Endorses continued stiffness and chronic pain in her back no different from prior. Is worried about and fatigue worsening from being in the hospital. No bowel movement yet today. Is anxious to move forward with her plan, is aware that due to having Covid she may not be able to be discharged to rehab until after 02/18. Referrals pending. No other questions or concerns at time of visit. Review of Systems Review of Systems: 10 point review of systems negative except as previously noted and in subjective Physical Exam Physical Exam: General: A&Ox3. NAD. Cooperative. HEENT: Atraumatic, normocephalic. Visual acuity and hearing grossly intact Pulm: CTAB A&P. -wheezes, -rales, -rhonchi. Symmetrical chest rise. No increase work of breathing. No respiratory distress. Cardiac: RRR, -mrg. Radial pulses intact and symmetrical. Abdominal: Nontender, nondistended, soft. BS present. Extremities: Bilateral ankle edema. Sensation to soft touch and temperature intact in hands and feet without asymmetry. 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 Results & Data Results & Data ([facility]) Vital Signs (Past 12 Hours) Vital Signs Temp Pulse Resp BP Pulse Ox 02/10/21 11:54 36.2 C L 86 20 114/75 95 02/10/21 07:49 36.6 C 99 H 20 118/69 96 02/10/21 04:00 36.6 C 90 18 137/92 95 PG Care Time/CCT Total # of Minutes Spent Total Time Spent with Patient: Total time spent is greater than 50% in coordination of care (as documented) at patient's floor/unit and/or counseling patient: Coding Level of Care Code 20246 Subseq Hosp Care Lvl 3 Diagnoses Acute blood loss anemia D62 Bacteremia R78.81 COVID-19 U07.1 Back pain M54.9 CKD (chronic kidney disease) N18.9 HLD (hyperlipidemia) E78.5 RBBB I45.10 Kidney lesion, [place], right N28.9 Ischemic colitis K55.9 Hemorrhagic shock R57.8 Epidural abscess G06.2 Hypertension I10 Anasarca R60.1 Hypomagnesemia E83.42
[2021-02-10] MEDS: cefTRIAXone SODIUM 2,000 MG in DEXTROSE 5% 50 ML IV SCH (14:40)
[2021-02-10 18:02] LABS: Adenovirus F 40/41 PCR Not Detected (NotDetected); Astrovirus PCR Not Detected (NotDetected); Campylobacter PCR Not Detected (NotDetected); Clostridium diff Toxin A/B PCR Not Detected (NotDetected); Cryptosporidium PCR Not Detected (NotDetected); Cyclospora cayetanensis PCR Not Detected (NotDetected); Entamoeba histolytica PCR Not Detected (NotDetected); Enteroaggregative E.coli(EAEC) Not Detected (NotDetected); Enteropathogenic E.coli (EPEC) Not Detected (NotDetected); Enterotoxigenic E.coli (ETEC) Not Detected (NotDetected); Giardia lamblia PCR Not Detected (NotDetected); Norovirus GI/GII PCR Not Detected (NotDetected); Plesiomonas shigelloides PCR Not Detected (NotDetected); Rotavirus A PCR Not Detected (NotDetected); Salmonella PCR Not Detected (NotDetected); Sapovirus PCR Not Detected (NotDetected); Shiga-like Toxin E.coli (STEC) Not Detected (NotDetected); Shigella/Enteroinvasive E.coli Not Detected (NotDetected); Vibrio cholerae PCR Not Detected (NotDetected); Vibrio species PCR Not Detected (NotDetected); Yersinia enterocolitica PCR Not Detected (NotDetected)
[2021-02-10] MEDS: ATORVASTATIN 10 MG TAB PO SCH (21:29)
[2021-02-10] MEDS: MICONAZOLE NITRATE POWDER 43 GM EXT PRN (21:30)
[2021-02-10] MEDS: MAGNESIUM OXIDE 400 MG TAB PO SCH (21:30)
[2021-02-11] MEDS: oxyCODONE HCL IR 5 MG TAB (IMMEDIATE RELEASE) PO PRN ×2 (05:03→10:55)
[2021-02-11] MEDS: DICLOFENAC SOD 1% GEL 100 GM TUBE EXT SCH ×4 (09:00→20:43)
[2021-02-11] MEDS: MAGNESIUM OXIDE 400 MG TAB PO SCH ×2 (09:38→20:43)
[2021-02-11] MEDS: GABAPENTIN 100 MG CAP PO SCH ×2 (09:38→20:44)
[2021-02-11] MEDS: PANTOprazole 40 MG TAB PO SCH ×2 (09:38→20:43)
[2021-02-11] MEDS: metroNIDAZOLE 250 MG TAB PO SCH ×4 (09:39→20:43)
[2021-02-11] MEDS: LIDOCAINE 5% 1 PATCH TD SCH (09:39)
[2021-02-11] MEDS: CIPROFLOXACIN 500 MG TAB PO SCH ×2 (09:39→20:43)
[2021-02-11] MEDS: MICONAZOLE NITRATE POWDER 43 GM EXT PRN (10:55)
[2021-02-11 11:27] LABS: Hematocrit (blood only) 28.7 % (37-47); Hemoglobin 8.8 g/dL (12.0-16.0); Mean Corpuscular Hgb Conc 30.7 g/dL (32-36); Mean Corpuscular Volume 94.7 fL (80-100); Mean Platelet Volume 10.9 fL (7.4-10.4); Platelet Count 172 K/uL (130-400); RDW Standard Deviation 55.1 fL (36.4-46.3); Red Blood Count 3.03 M/uL (4.2-5.4); White Blood Count 6.51 K/uL (4.8-10.8)
[2021-02-11 11:52] LABS: Eosinophils # (auto) 0.02 K/uL (0-0.5); Eosinophils % (auto) 0.3 %; Immature Granulocytes # (auto) 0.06 K/uL (0.00-0.02); Immature Granulocytes % (auto) 0.9 %; Lymphocytes # (auto) 0.88 K/uL (1.2-3.4); Lymphocytes % (auto) 13.5 %; Monocytes # (auto) 0.53 K/uL (0.11-0.59); Monocytes % (auto) 8.1 %; Neutrophils # (auto) 5.02 K/uL (1.4-6.5); Neutrophils % (auto) 77.2 %; Toxic Granulation 1+
[2021-02-11 12:19] LABS: Albumin Globulin Ratio 0.4 (0.9-2); Albumin Level 1.4 gm/dl (3.4-5.0); BUN Creatinine Ratio 28.2 (10-20); Bilirubin,Total 0.4 mg/dl (0.2-1); Calcium 7.8 mg/dl (8.5-10.1); Creatinine Clr Calc Pharmacy 75.9 ml/min; Est GFR (African American) 96.2 ml/min; Globulin 3.9 gm/dl (2.5-4.0); Potassium 3.5 mmol/L (3.5-5.1); Total Protein 5.3 gm/dl (6.4-8.2)
--- NOTE | 2021-02-11 13:06 | Hospitalist Progress Note ---
Date of Service February 11, 2021 Assessment & Plan (1) Acute blood loss anemia: Plan: Mrs. Nieves is an 80 yo woman who presented for acute rectal bleeding, found to be in hemorrhagic shock on arrival. Pending placement. Due to Covid positive [facility] able to accept after 02/21, message left by case management for [facility] to see if could be accepted prior. PT/OT 02/09 assessment recommended SNF level rehab following admission. Patient will also require extended antibiotics as noted below. Suspect 2/2 ischemic colitis - Hemodynamically stable after IV fluid infusion and now status post 2 units PRBCs - Hgb 7.7, MCV 96 on arrival and hemoglobin now up to 9.2 and remains hemodynamically stable, up trended 02/11 - secondary to GI bleed-CT abdomen/pelvis shows nonspecific colitis in ascending and transverse colon, also with duodenal outpouching which could be consistent with ulceration or diverticulum -Suspect ischemic colitis in the setting of profound hypotension as a source of bleeding -only had 2 small black stools AM of 02/09--> most likely old blood and acute bleed has resolved. BM without blood -Stool panel negative -continue Protonix 40 mg p.o. bid as per GI - hold further lovenox which she was on for DVT prophylaxis - GI consult placed and appreciated-suspect ischemic colitis-recommends EGD and colonoscopy in 8 weeks, continue Cipro and Flagyl for total of 10 days -Continue to monitor daily CBC or sooner if has recurrent bleeding (2) Bacteremia: Plan: - Blood cultures from previous admission (12/2020) growing callahan-sensitive group B strep and Klebsiella - ECHO then no valvular vegetation - Had epidural abscess decompressed - Repeat blood cultures ordered on admission-no growth to date - WBC 16 on arrival, up from 14 at discharge on 01/08/21-this is likely a reactive leukocytosis and her WBC count is back to normal now without any antibiotic therapy other than ceftriaxone which she has been on for 1 month - SIRS criteria met on admission -suspect due to hemodynamic instability rather than septic response CRP down trended from 22-4 - continue Rocephin 2g daily for previous bacteremia-recommend at least several more weeks until markers of inflammation are down and perhaps upon review of repeat imaging showing resolution of abscess -Check ESR, CRP once weekly while on IV abx -MRI of lumbar spine on 01/31/2021 again shows new epidural abscess and postoperative seroma -She saw neurosurgery at [place] on 02/05 who did not recommend further surgical intervention at this point Appreciate Ortho SPine consult- continue abx, repeat MRI L-spine in 4-6 weeks -will have her f/u with Dr. Crook in office in 4 weeks (3) COVID-19: Plan: - asymptomatic, but tested positive upon routine Covid screening for admission for hemorrhagic shock Was never hypoxic, however was placed on 2 L nasal cannula upon arrival most likely for hemorrhagic shock-O2 now weaned off - CXR showing no acute abnormalities - pharmacotherapy not indicated as patient is not symptomatic at this time - cannot using Lovenox due to acute GI bleed - covid 19 precautions (4) Back pain: Plan: - secondary to recent lumbar decompression and medial facetectomies along with recurrent epidural abscess - pain control with oxycodone , acetaminophen prn - continue home dose gabapentin - kpad Consult orthopedic spine surgery appreciated (5) CKD (chronic kidney disease): Plan: - history of stage 3 CKD - Cr 1.18 on admission, BUN at 31 and creatinine improved now remains normalized - trend BMP (6) HLD (hyperlipidemia): Plan: - continue home dose statin (7) RBBB: Plan: - incomplete RBBB noted on admission ECG, new compared to prior studies - Telemetry with sinus rhythm with frequent PACs - consider outpatient follow up with cardiology -Consider addition of beta-aarti low-dose for ectopy Continue to monitor on telemetry (8) Kidney lesion, [place], right: Plan: - 6mm exophytic lesion on pole of R kidney incidentally noted on CT scan - radiology recommend follow up with CT scan in 1 year (02/07/2022) (9) Ischemic colitis: Plan: As above (10) Hemorrhagic shock: Plan: As above (11) Epidural abscess: Plan: As above (12) Hypertension: Plan: Hold home lisinopril due to hypotension which is now resolved (13) Anasarca: Plan: albumin very low at 1.4 encouraged po protein intake Boost, dietary consulted (14) Hypomagnesemia: Plan: severely low at 1.2 replace with 4 grams IV mag Repeat magnesium pending Plan: DVT prophylaxis-SCDs only due to hemorrhage Disposition-continued stay on medical/telemetry unit on Covid precautions PT/OT consults appreciated. Due to having COVID, she may not be able to be placed back in rehab until after 02/18. Came from [facility]-referral made to there and to [facility] Admission and Anticipated Discharge Date Admission Date: February 07, 2021 Subjective No clinical change today. No fever/chills/sweats. Reports has not had much pain. Slightly frustrated by pending disposition and patient is not sure if she believes her Covid test, but understands that because she has tested positive that this adds placement challenges. No additional questions or concerns at time of bedside assessment. Review of Systems Review of Systems: 10 point review of systems negative except as previously noted and in subjective Physical Exam Physical Exam: General: A&Ox3. NAD. Cooperative. HEENT: Atraumatic, normocephalic. Visual acuity and hearing grossly intact Pulm: CTAB A&P. -wheezes, -rales, -rhonchi. Symmetrical chest rise. No increase work of breathing. No respiratory distress. Cardiac: RRR, -mrg. Radial pulses intact and symmetrical. Abdominal: Nontender, nondistended, soft. BS present. Extremities: Bilateral ankle edema. Sensation to soft touch and temperature intact in hands and feet without asymmetry. Ankle dorsiflexion/plantar flexion, hvac project engineer strength 5/5 bilaterally. Results & Data Results & Data ([facility]) Vital Signs (Past 12 Hours) Vital Signs Temp Pulse Pulse Resp BP Pulse Ox 02/11/21 11:46 36.6 C 71 20 118/71 96 02/11/21 07:50 36.4 C L 81 20 126/79 95 02/11/21 07:31 83 02/11/21 03:04 36.4 C L 87 20 134/78 94 PG Care Time/CCT Total # of Minutes Spent Total Time Spent with Patient: Total time spent is greater than 50% in coordination of care (as documented) at patient's floor/unit and/or counseling patient: Coding Level of Care Code 64435 Subseq Hosp Care Lvl 1 Diagnoses Acute blood loss anemia D62 Bacteremia R78.81 COVID-19 U07.1 Back pain M54.9 CKD (chronic kidney disease) N18.9 HLD (hyperlipidemia) E78.5 RBBB I45.10 Kidney lesion, [place], right N28.9 Ischemic colitis K55.9 Hemorrhagic shock R57.8 Epidural abscess G06.2 Hypertension I10 Anasarca R60.1 Hypomagnesemia E83.42
[2021-02-11] MEDS: cefTRIAXone SODIUM 2,000 MG in DEXTROSE 5% 50 ML IV SCH (14:25)
[2021-02-11] MEDS: ATORVASTATIN 10 MG TAB PO SCH (20:44)
[2021-02-12] MEDS: oxyCODONE HCL IR 5 MG TAB (IMMEDIATE RELEASE) PO PRN ×2 (01:06→08:56)
[2021-02-12] MEDS: MICONAZOLE NITRATE POWDER 43 GM EXT PRN ×3 (01:07→21:28)
[2021-02-12 07:01] LABS: Basophils # (auto) 0.01 K/uL (0-0.2); Basophils % (auto) 0.2 %; Eosinophils # (auto) 0.04 K/uL (0-0.5); Eosinophils % (auto) 0.8 %; Hematocrit (blood only) 25.5 % (37-47); Hemoglobin 8.1 g/dL (12.0-16.0); Immature Granulocytes # (auto) 0.02 K/uL (0.00-0.02); Immature Granulocytes % (auto) 0.4 %; Lymphocytes # (auto) 0.76 K/uL (1.2-3.4); Lymphocytes % (auto) 14.8 %; Mean Corpuscular Hemoglobin 30.1 pg (25-34); Mean Corpuscular Hgb Conc 31.8 g/dL (32-36); Mean Corpuscular Volume 94.8 fL (80-100); Mean Platelet Volume 10.8 fL (7.4-10.4); Monocytes # (auto) 0.41 K/uL (0.11-0.59); Neutrophils # (auto) 3.91 K/uL (1.4-6.5); Neutrophils % (auto) 75.8 %; Platelet Count 165 K/uL (130-400); RDW Coefficient of Variation 16.1 % (11.5-14.5); Red Blood Count 2.69 M/uL (4.2-5.4); White Blood Count 5.15 K/uL (4.8-10.8)
[2021-02-12 07:28] LABS: Albumin Level 1.3 gm/dl (3.4-5.0); BUN Creatinine Ratio 24.8 (10-20); Calcium 7.6 mg/dl (8.5-10.1); Creatinine Clr Calc Pharmacy 80.7 ml/min; Est GFR (African American) 98.2 ml/min; Est GFR (Non-African American) 84.7 ml/min; Potassium 3.5 mmol/L (3.5-5.1)
[2021-02-12 07:30] LABS: Albumin Globulin Ratio 0.4 (0.9-2); Bilirubin,Total 0.3 mg/dl (0.2-1); Globulin 3.7 gm/dl (2.5-4.0)
[2021-02-12] MEDS: GABAPENTIN 100 MG CAP PO SCH ×2 (08:44→21:27)
[2021-02-12] MEDS: MAGNESIUM OXIDE 400 MG TAB PO SCH ×2 (08:45→21:27)
[2021-02-12] MEDS: PANTOprazole 40 MG TAB PO SCH ×2 (08:45→21:26)
[2021-02-12] MEDS: metroNIDAZOLE 250 MG TAB PO SCH ×4 (08:45→21:25)
[2021-02-12] MEDS: CIPROFLOXACIN 500 MG TAB PO SCH ×2 (08:45→21:25)
[2021-02-12] MEDS: LIDOCAINE 5% 1 PATCH TD SCH (08:46)
[2021-02-12] MEDS: DICLOFENAC SOD 1% GEL 100 GM TUBE EXT SCH ×4 (08:46→21:25)
--- NOTE | 2021-02-12 10:01 | Hospitalist Progress Note ---
Date of Service February 12, 2021 Assessment & Plan (1) Acute blood loss anemia: Plan: Mrs. Nieves is an 80 yo woman who presented for acute rectal bleeding, found to be in hemorrhagic shock on arrival. Pending placement. Due to Covid positive [facility] able to accept after 02/21, message left by [facility] management for [facility] to see if could be accepted prior. PT/OT 02/09 assessment recommended SNF level rehab following admission. Patient will also require extended antibiotics as noted below. Suspect 2/2 ischemic colitis - Hemodynamically stable after IV fluid infusion and now status post 2 units PRBCs - Hgb 7.7, MCV 96 on arrival remains hemodynamically stable, up trended 02/11 - secondary to GI bleed-CT abdomen/pelvis shows nonspecific colitis in ascending and transverse colon, also with duodenal outpouching which could be consistent with ulceration or diverticulum -Suspect ischemic colitis in the setting of profound hypotension as a source of bleeding -only had 2 small black stools AM of 02/09--> most likely old blood and acute bleed has resolved. BM without blood -Stool culture PCR panel negative -continue Protonix 40 mg p.o. bid as per GI - hold further lovenox which she was on for DVT prophylaxis - GI consult placed and appreciated-suspect ischemic colitis-recommends EGD and colonoscopy in 8 weeks, continue Cipro and Flagyl for total of 10 days (). Given broad coverage of antibiotics added probiotic. -Continue to monitor daily CBC or sooner if has recurrent bleeding PO improving, although somewhat poor liquid intake with slightly elevated BUN/creatinine ratio although normal creatinine. Low urine output in last day. Encouraged p.o. intake, 500 cc total of HNSS to supplement and recheck in a.m. (2) Bacteremia: Plan: - Blood cultures from previous admission (12/2020) growing callahan-sensitive group B strep and Klebsiella - ECHO then no valvular vegetation - Had epidural abscess decompressed - Repeat blood cultures ordered on admission-no growth to date - SIRS criteria met on admission -suspect due to hemodynamic instability rather than septic response CRP down trended - continue Rocephin 2g daily for previous bacteremia-recommend at least several more weeks until markers of inflammation are down and perhaps upon review of repeat imaging showing resolution of abscess -Check ESR, CRP once weekly while on IV abx -MRI of lumbar spine on 01/31/2021 again shows new epidural abscess and postoperative seroma -She saw neurosurgery at [place] on 02/05 who did not recommend further surgical intervention at this point Appreciate Ortho SPine consult- continue abx, repeat MRI L-spine in 4-6 weeks -will have her f/u with Dr. Crook in office in 4 weeks (3) COVID-19: Plan: - asymptomatic, but tested positive upon routine Covid screening for admission for hemorrhagic shock Was never hypoxic, however was placed on 2 L nasal cannula upon arrival most likely for hemorrhagic shock-O2 now weaned off - CXR showing no acute abnormalities - pharmacotherapy not indicated as patient is not symptomatic at this time - cannot using Lovenox due to GI bleed - covid 19 precautions (4) Back pain: Plan: - secondary to recent lumbar decompression and medial facetectomies along with recurrent epidural abscess - pain control with oxycodone , acetaminophen prn - continue home dose gabapentin - kpad - Consult orthopedic spine surgery appreciated. Pain adequately controlled this morning. (5) CKD (chronic kidney disease): Plan: - history of stage 3 CKD - Cr 1.18 on admission, BUN at 31 and creatinine improved now remains normalized - trend BMP (6) HLD (hyperlipidemia): Plan: - continue home dose statin (7) RBBB: Plan: - incomplete RBBB noted on admission ECG, new compared to prior studies - Telemetry with sinus rhythm with frequent PACs - consider outpatient follow up with cardiology -Consider addition of beta-aarti low-dose for ectopy Continue to monitor on telemetry (8) Kidney lesion, [place], right: Plan: - 6mm exophytic lesion on pole of R kidney incidentally noted on CT scan - radiology recommend follow up with CT scan in 1 year (02/07/2022) (9) Ischemic colitis: Plan: As above (10) Hemorrhagic shock: Plan: As above (11) Epidural abscess: Plan: As above (12) Hypertension: Plan: Hold home lisinopril due to hypotension which is now resolved (13) Anasarca: Plan: albumin very low at 1.4 encouraged po protein intake Boost, dietary consulted (14) Hypomagnesemia: Plan: severely low at 1.2 Repleted Potassium normal Continue a.m. labs Plan: DVT prophylaxis-SCDs only due to hemorrhage Disposition-continued stay on medical/telemetry unit on Covid precautions Continue PT/OT. Due to having COVID, she may not be able to be placed back in rehab until after 02/18. Came from [facility]-referral made to there and to [facility]. Discussed with case management again 02/12, referrals pending Admission and Anticipated Discharge Date Admission Date: February 07, 2021 Subjective 1 BM today, 1 BM last night. Loose/soft, non liquid. Awaiting dispo. BUN /creatinine elevated, patient reports that she has been drinking water from the cup but does not like old water which takes off to her. Otherwise she has been eating "okay "but does not like bread or milk. No abdominal pain. Review of Systems Review of Systems: 10 point review of systems negative except as previously noted and in subjective Physical Exam Physical Exam: General: A&Ox3. NAD. Cooperative. HEENT: Atraumatic, normocephalic. Visual acuity and hearing grossly intact Pulm: CTAB A&P. -wheezes, -rales, -rhonchi. Symmetrical chest rise. No increase work of breathing. No respiratory distress. Cardiac: RRR, -mrg. Radial pulses intact and symmetrical. Abdominal: Nontender, nondistended, soft. BS present. Extremities: Bilateral ankle edema. Sensation to soft touch and temperature intact in hands and feet without asymmetry. Ankle dorsiflexion/plantar flexion, sand caster strength 5/5 bilaterally. Results & Data Results & Data ([facility]) Vital Signs (Past 12 Hours) Vital Signs Temp Pulse Pulse Resp BP Pulse Ox 02/12/21 07:26 80 02/12/21 06:41 36.8 C 85 20 118/76 96 02/12/21 03:25 36.5 C 88 16 134/86 95 02/11/21 22:40 36.6 C 100 H 20 138/84 98 02/11/21 22:20 98 H PG Care Time/CCT Total # of Minutes Spent Total Time Spent with Patient: Total time spent is greater than 50% in coordination of care (as documented) at patient's floor/unit and/or counseling patient: Coding Level of Care Code 11050 Subseq Hosp Care Lvl 2 Diagnoses Acute blood loss anemia D62 Bacteremia R78.81 COVID-19 U07.1 Back pain M54.9 CKD (chronic kidney disease) N18.9 HLD (hyperlipidemia) E78.5 RBBB I45.10 Kidney lesion, [place], right N28.9 Ischemic colitis K55.9 Hemorrhagic shock R57.8 Epidural abscess G06.2 Hypertension I10 Anasarca R60.1 Hypomagnesemia E83.42
[2021-02-12] MEDS ORDERED: SODIUM CHLORIDE 0.45 % 500 ML IV SCH (10:15)
[2021-02-12] MEDS: LACTOBACILLUS ACIDOPHILUS 1 GM PACK PO SCH ×2 (11:21→16:37)
[2021-02-12] MEDS: cefTRIAXone SODIUM 2,000 MG in DEXTROSE 5% 50 ML IV SCH (13:50)
[2021-02-12] MEDS: ATORVASTATIN 10 MG TAB PO SCH (21:27)
[2021-02-13 06:15] LABS: Basophils # (auto) 0.01 K/uL (0-0.2); Basophils % (auto) 0.2 %; Eosinophils # (auto) 0.05 K/uL (0-0.5); Eosinophils % (auto) 1.2 %; Hematocrit (blood only) 26.4 % (37-47); Hemoglobin 8.3 g/dL (12.0-16.0); Immature Granulocytes # (auto) 0.02 K/uL (0.00-0.02); Immature Granulocytes % (auto) 0.5 %; Lymphocytes # (auto) 0.66 K/uL (1.2-3.4); Lymphocytes % (auto) 16.1 %; Mean Corpuscular Hemoglobin 29.7 pg (25-34); Mean Corpuscular Hgb Conc 31.4 g/dL (32-36); Mean Corpuscular Volume 94.6 fL (80-100); Mean Platelet Volume 11.2 fL (7.4-10.4); Monocytes # (auto) 0.41 K/uL (0.11-0.59); Neutrophils # (auto) 2.94 K/uL (1.4-6.5); Platelet Count 175 K/uL (130-400); RDW Coefficient of Variation 15.9 % (11.5-14.5); Red Blood Count 2.79 M/uL (4.2-5.4); White Blood Count 4.09 K/uL (4.8-10.8)
[2021-02-13 06:58] LABS: Albumin Level 1.3 gm/dl (3.4-5.0); BUN Creatinine Ratio 21.9 (10-20); Calcium 7.5 mg/dl (8.5-10.1); Creatinine Clr Calc Pharmacy 88.6 ml/min; Est GFR (African American) 101.5 ml/min; Est GFR (Non-African American) 87.6 ml/min; Magnesium 1.5 mg/dl (1.8-2.4); Potassium 3.5 mmol/L (3.5-5.1)
[2021-02-13 07:00] LABS: Albumin Globulin Ratio 0.4 (0.9-2); Bilirubin,Total 0.3 mg/dl (0.2-1); Globulin 3.6 gm/dl (2.5-4.0); Total Protein 4.9 gm/dl (6.4-8.2)
[2021-02-13] MEDS: PANTOprazole 40 MG TAB PO SCH (08:55)
[2021-02-13] MEDS: CIPROFLOXACIN 500 MG TAB PO SCH (08:55)
[2021-02-13] MEDS: metroNIDAZOLE 250 MG TAB PO SCH ×2 (08:55→11:12)
[2021-02-13] MEDS: MAGNESIUM OXIDE 400 MG TAB PO SCH (08:56)
[2021-02-13] MEDS: GABAPENTIN 100 MG CAP PO SCH (08:56)
[2021-02-13] MEDS: LACTOBACILLUS ACIDOPHILUS 1 GM PACK PO SCH ×2 (08:57→11:10)
[2021-02-13] MEDS: DICLOFENAC SOD 1% GEL 100 GM TUBE EXT SCH ×2 (08:57→11:11)
[2021-02-13] MEDS: LIDOCAINE 5% 1 PATCH TD SCH (08:58)
[2021-02-13] MEDS ORDERED: MAGNESIUM SULFATE / D5W 1 GM/100 ML BAG IV SCH (10:30)
[2021-02-13] MEDS ORDERED: METOPROLOL SUCC 25MG EXT REL TAB PO SCH (11:00)
[2021-02-13 11:10] VITALS: PULSE 86; TEMP 97.9; O2SAT 95
--- NOTE | 2021-02-13 12:23 | Discharge Summary ---
Date of Service February 13, 2021 Admission HPI Per Admitting Provider Mrs. Nieves is an 80 yo woman who was brought to [facility] from [facility] after staff noticed she began passing bright red blood per rectum at 4:15 am this morning. Of note, she was admitted to [facility] on 01/02/21 for evaluation of progressive back pain, weakness and falls. A lumbar spine MRI identified an epidural abscess - Dr. Crook took her to the OR for a lumbar decompression with bilateral medial facetectomies at L1-2, L2-L3 and L3-L4, as well as evacuation of the epidural abscess. The cause for the epidural abscess was never identified, as patient had no instrumentation prior its formation. Blood cultures from the same admission grew callahan-sensitive group B strep and Klebsiella. A PICC line was placed - [facility] Infectious Disease was consulted and recommend 6 weeks of Ceftriaxone, 2g IV daily. A TTE was performed and showed no evidence of valvular vegetations. She was discharged to [facility] for rehab with a order for daily prophylactic Lovenox dosing at 0.5mg/kg/day. She is not fully anticoagulated, nor does she take a daily baby aspirin. She denies any history of previous GI bleeds, no history of brain bleeds. Social Hx: she received two Moderna COVID 19 vaccines in May 2020 - never got the booster. In the ED, she was hypotensive on arrival with a systolic pressure of 70mmHg and HR of 124bpm, however hemodynamic status improved with 1 liter of NSS. She was afebrile with a RR is 20 and she was satting 97% on room air. Hgb was 7.7 on admission, down from 10.1 on 01/08/21; MCV at 96. Hemoccult stool positive. Platelets normal. INR at 1.3. WBC elevated to 16 with neutrophil predominance. Electrolytes WNL. Creatinine 1.18, BUN at 31. LFTs not elevated. Troponin undetectable. COVID 19 positive. EKG showed sinus tachycardia with PACs, RBBB but no acute ST segment changes. CXR showing no acute changes. Cat scan of abdomen/pelvis showing evidence of mild circumferential thickening within the ascending colon and transverse colon, consistent with a colitis; diverticulosis but not evidence of diverticulitis; a 1.4 cm focal outpouching of the duodenal bulb, a trace R pleural effusion, and 6mm exophytic lesion of R kidney. Her PICC line was found to be occluded on arrival but was flushed with Alteplase by IV team. She was consented for blood products; 2 units of pRBCs were ordered. She was given famotidine 20mg IV, and a protonix drip.Allergies Admission Exam Per Admitting Provider Constitutional: WD/WN, vitals as above cooperative; no acute distress Eyes: + anicteric sclerae ENMT: external ear and nose normal, oropharynx normal Neck: trachea midline Respiratory: normal respiratory effort, lungs clear to auscultation no cough Auscultation: no crackles, no rales and no wheezes Cardiovascular: Rate/Rhythm: regular rate; + abnormal rhythm Heart Sounds: normal S1 and normal S2; no murmur Extremities: + pedal edema (R > L ) Gastrointestinal (Abdomen): normal bowel sounds, soft, nontender, no hepatosplenomegaly Musculoskeletal: Head/Neck/Chest: normocephalic and head atraumatic Skin: no rashes, warm and dry + purpura (b/l upper extremities ) Neurologic: moves all extremities Psychiatric: A+Ox3, euthymic affect Principal Diagnosis Acute GI bleed, ischemic colitis Epidural abscess, lumbar Blood loss anemia Discharge Exam General: A&Ox3. NAD. Cooperative. HEENT: Atraumatic, normocephalic. Visual acuity and hearing grossly intact. Pulm: CTAB A&P. -wheezes, -rales, -rhonchi. Symmetrical chest rise. No increase work of breathing. No respiratory distress. Cardiac: RRR, -mrg. Telemetry reviewed, some intermittent ectopy without A. fib/flutter. Radial pulses intact and symmetrical. Abdominal: Nontender, nondistended, soft. BS present. Extremities: Warm, dry. Sensation to soft touch intact in hands and feet, sensation to temperature intact in hands and feet. Discharge Data Allergies Allergy/AdvReac Type Severity Reaction Status Date / Time No Known Allergies Allergy Mild Verified 02/07/21 08:15 Consultations 02/07/21 09:59 ED Decision to Admit Stat 02/07/21 12:25 Consult Gastroenterology Routine 02/08/21 12:09 Consult Orthopedic Surgery Routine Ordered Studies 02/07/21 10:23 CT abd pelvis IV con only Stat Hospital Course (1) Acute blood loss anemia: Mrs. Nieves is an 80 yo woman who presented for acute rectal bleeding, found to be in hemorrhagic shock on arrival. To do as outpatient: 1. Complete course of Cipro/Flagyl, 10-day course complete 02/18/2021 2. Continue Rocephin 2 g daily through PICC. Patient will require at least 4 t o 6-week course. End of course to be determined by orthopedics, determined at on follow-up lumbar MRI and CRP for residual signs of infection 3. Follow-up with PCP, follow-up with orthospine in approximately 4 weeks, follow-up with GI routine 4. In approximately 8 weeks outpatient EGD/colonoscopy 5. Repeat CBC to ensure stability 6. Repeat BMP plus magnesium within 1 week to follow electrolytes, adjust potassium/magnesium repletion as needed based on results 7. Weekly CRP/ESR while on antibiotics 8. Renal lesion, radiology recommend follow up with CT scan in 1 year (02/07/2022) Suspect 2/2 ischemic colitis - Hemodynamically stable after IV fluid infusion and now status post 2 units PRBCs - Hgb 7.7, MCV 96 on arrival remains hemodynamically stable, up trended 02/11 - secondary to GI bleed-CT abdomen/pelvis shows nonspecific colitis in ascending and transverse colon, also with duodenal outpouching which could be consistent with ulceration or diverticulum -Suspect ischemic colitis in the setting of profound hypotension as a source of bleeding -only had 2 small black stools AM of 02/09--> most likely old blood and acute bleed has resolved. BM without blood -Stool culture PCR panel negative -continue Protonix 40 mg p.o. bid as per GI -Held further lovenox which she was on for DVT prophylaxis - GI consult placed and appreciated-suspect ischemic colitis-recommends EGD and colonoscopy in 8 weeks, continue Cipro and Flagyl for total of 10 days (). Given broad coverage of antibiotics may use probiotic. -Continue to monitor daily CBC or sooner if has recurrent bleeding P.o. improved, creatinine remains at baseline. (2) Bacteremia: - Blood cultures from previous admission (12/2020) growing callahan-sensitive group B strep and Klebsiella - ECHO then no valvular vegetation - Had epidural abscess decompressed - Repeat blood cultures ordered on admission-no growth to date - SIRS criteria met on admission -suspect due to hemodynamic instability rather than septic response CRP down trended - continue Rocephin 2g daily for previous bacteremia in the setting of epidural abscess, continue until markers of inflammation are down and perhaps upon review of repeat imaging showing resolution of abscess -MRI of lumbar spine on 01/31/2021 again shows new epidural abscess and postoperative seroma -She saw neurosurgery at [place] on 02/05 who did not recommend further surgical intervention at this point Appreciate Ortho SPine consult- continue abx, repeat MRI L-spine/CRP in 4-6 weeks -will have her f/u with Dr. Crook in office in 4 weeks (3) COVID-19: - asymptomatic, but tested positive upon routine Covid screening for admission for hemorrhagic shock Was never hypoxic, however was placed on 2 L nasal cannula upon arrival most likely for hemorrhagic shock-O2 now weaned off - CXR showing no acute abnormalities - pharmacotherapy not indicated as patient is not symptomatic during admission - cannot using Lovenox due to GI bleed - covid 19 precautions (4) Back pain: - secondary to recent lumbar decompression and medial facetectomies along with recurrent epidural abscess - pain control with oxycodone , acetaminophen prn - continue home dose gabapentin - kpad - Consult orthopedic spine surgery appreciated. Pain adequately controlled this morning. (5) CKD (chronic kidney disease): - history of stage 3 CKD - Cr 1.18 on admission, BUN at 31 and creatinine improved now remains normalized - trend BMP as noted (6) HLD (hyperlipidemia): - continue home dose statin (7) RBBB: - incomplete RBBB noted on admission ECG, new compared to prior studies - Telemetry with sinus rhythm with frequent PACs -Low-dose beta-aarti added (metoprolol succinate 12.5) for frequent ectopy. Consider outpatient monitor/cardiology follow-up (8) Kidney lesion, [place], right: - 6mm exophytic lesion on pole of R kidney incidentally noted on CT scan - radiology recommend follow up with CT scan in 1 year (02/07/2022) (9) Ischemic colitis: As above (10) Hemorrhagic shock: As above (11) Epidural abscess: As above (12) Hypertension: Hold home lisinopril due to hypotension which is now resolved (13) Anasarca: albumin very low at 1.4 encouraged po protein intake Boost, dietary consulted (14) Hypomagnesemia: severely low at 1.2 Repleted Potassium normal Continue magnesium repletion, recheck labs as above Total Time Total Time Spent Total Time Spent (In Minutes): Total time spent day of discharge 60 minutes including direct patient care, review of labs and images, documentation, and coordination of care Discharge Plan Discharge Items Patient Disposition: Transfer Inpatient Rehab Fac Reason For Visit: ACUTE BLOOD LOSS ANEMIA Discharge Diagnosis: Acute blood loss anemia 2/2 ischemic colitis Bacteremia, epidural abscess COVID-19 Activity: Per Instructions section Non-emergency contact: Primary Care Provider Call non-emergency contact if: you have any medication questions, your symptoms worsen, your pain is not controlled, your pain is worsening, your pain is unusual for you and your pain is concerning for you Follow-up/Referrals: Crescencio Pickens DO [Physician] - Ayesha Agrawal MD [Primary Care Provider] - Gautam Crook DO [Surgeon] - (4 weeks) Diet: Regular Addtl Attending Provider Instructions: You are seen in the hospital for an acute GI bleed and were found to have ischemic colitis. You are seen by gastroenterology, stool culture and PCR panel were negative. You clinically improved with supportive care and antibiotics. You have been prescribed a course of antibiotics as noted below. You are also being treated for an epidural abscess/postoperative seroma with antibiotics. He will have a repeat MRI of your spine in approximately 4 weeks, antibiotics have been prescribed which will be reevaluate at that time. Follow-up is being scheduled with the orthopedic spine office as noted below. During admission you were found to have Covid, but with mild asymptomatic disease which did not require Covid specific intervention. You have been prescribed antibiotics per gastroenterology's recommendation. Please take ciprofloxacin 500 mg by mouth twice daily and Flagyl 250 mg 4 times daily by mouth until 02/18 to complete a total 10-day course of treatment. Due to your lumbar spine epidural abscess it is been recommended that you have a minimum of 4 to 6 weeks of IV antibiotics. Please continue to take ceftriaxone 2000 mg by IV daily. At your follow-up appointment with orthopedic spine they will recommend whether the ceftriaxone needs to be continued further at that time. Your blood levels were low due to an acute GI bleed, following transfusion with 2 units of red blood cells your counts improved and remained stable. Please have a repeat blood count (CBC) drawn by your primary care physician at your follow-up appointment. Due to your GI bleed you were started on a antiacid medication to protect your stomach, pantoprazole please take pantoprazole 40 mg by mouth twice daily for 1 week. After this, please decrease to 40 mg by mouth once daily for 6 additional weeks. Your potassium and magnesium were low during admission. Your potassium no rmalized with oral supplements, you have been prescribed a magnesium and potassium supplement on discharge. At your follow-up appointment with your PCP please have a basic metabolic panel and magnesium level checked, based on these results you may need to continue or stop magnesium and potassium supplementation. You were noted to have extra heartbeats, called PACs/ectopy. It was recommended that you start a very low-dose of a medication to help prevent these in the future, you have been started on metoprolol 12.5 mg once daily in the morning. This medication may lower blood pressure, if your blood pressure is low on this medication please discussed decreasing this or one of your other medications with your primary care physician on follow-up. Of note you were reported to have intermittent heart rates up to 140 on automated monitoring, but on review of your rhythm it appeared that this was an erroneous estimation due to periodic extra beats. If you experience lightheadedness, dizziness, palpitations in the future please discuss with your primary care physician or present for reevaluation. A follow-up appointment is being scheduled for you with your primary care provider. You should be seen within 1 to 2 weeks. If you do not hear confirmation of an appointment, please contact their office at the number above. A follow-up appointment is being scheduled for you with Dr. Crook in the orthopedic spine office. You should be seen in approximately 4 weeks for a repeat MRI. You should receive confirmation of an appointment, if you do not please contact their office directly at the number above and discuss this follow-up with your primary care physician. Follow-up with gastroenterology has been recommended, and they recommended a endoscopy and colonoscopy in approximately 8 weeks. A colonoscopy was not recommended at time of your illness as your bowel wall will take time to heal and there can be an increased risk of perforation while healing. If you develop any new or worsening symptoms including fever, chills, sweats, chest pain, chest pressure, difficulty breathing, uncontrolled nausea/vomiting, rash, wheezing, passing out or nearly passing out, bleeding, black/bloody bowel movements, or other new or concerning symptoms please call your primary care physician, or call 911 for re-evaluation in the emergency department if you are very concerned. Pending Studies at Discharge: No Stand-Alone Forms: My [facility] Skilled Items Patient informed of condition?: Yes DNR: No Discharge Level of Care: Acute rehab Communicable Disease: Yes Discharge Prognosis: Stable Lines: PICC Urinary Catheter: Yes Medications and DC Order Prescriptions: New metronidazole 250 mg Tablet 250 mg PO QID 5 Days Qty: 20 RF: 0 ciprofloxacin HCl 500 mg Tablet 500 mg PO BID 5 Days Qty: 10 RF: 0 magnesium oxide 400 mg (241.3 mg magnesium) Tablet 400 mg PO BID 7 Days Qty: 14 RF: 0 metoprolol succinate 25 mg Tablet Extended Release 24 Hr 12.5 mg PO QAM 30 Days Qty: 15 RF: 0 pantoprazole 40 mg Tablet,Delayed Release (Dr/Ec) 40 mg PO BID 7 Days Qty: 14 RF: 0 ceftriaxone 2 gram recon soln 1 g IV DAILY 28 Days Qty: 16 RF: 1 Continued triamterene-hydrochlorothiazid [Maxzide-25mg] 37.5-25 mg tablet 1 tab PO QAM Qty: 90 RF: 3 atorvastatin 10 mg Tablet 10 mg PO HS RF: 0 lisinopril 10 mg Tablet 10 mg PO BID RF: 0 lidocaine [Lidoderm] 5 % Adhesive Patch,Medicated 2 patch TOPICAL QAM RF: 0 gabapentin 100 mg Capsule 200 mg PO BID RF: 0 oxycodone 5 mg Tablet 5 mg PO Q4H PRN (Reason: Pain) RF: 0 enoxaparin 40 mg/0.4 mL Syringe 40 mg SUBCUT DAILY RF: 0 diclofenac sodium [Voltaren] 1 % Gel 4 g TOPICAL QID RF: 0 Discharge Orders: Discharge Order (Routine); Ordered 02/13/21 Ordered By: Hardeep Rouse Admission Data Admit Date/Time: 02/07/21 10:37 Attending Provider: Hardeep Rouse Admit Provider: Dana Yanes Primary Care Provider: Ayesha Agrawal V. Other Providers: Ranjith Noble ; Crescencio Pickens ; Gautam Crook ; Chris Garibay [facility] ; [facility] Coding Level of Care Code D/C DAY MANAGEMENT >30 MINS Diagnoses Acute blood loss anemia D62 Bacteremia R78.81 COVID-19 U07.1 Back pain M54.9 CKD (chronic kidney disease) N18.9 HLD (hyperlipidemia) E78.5 RBBB I45.10 Kidney lesion, [place], right N28.9 Ischemic colitis K55.9 Hemorrhagic shock R57.8 Epidural abscess G06.2 Hypertension I10 Anasarca R60.1 Hypomagnesemia E83.42
[2021-02-13 13:35] VITALS: BP 132/82
== END 2021-02-13 13:37 | DRG 377 ==
LOC: ED 06:59 → EDINP 10:37 → SUATTDRO 10:37 → EDINP 11:30 → 2W 02-09 21:06